=== PATIENT | male | born 1975 | race Caucasian/White ===

== ENCOUNTER 2021-09-22 15:41 | Emergency (ER) | payer OTHER, SELFPAY ==
--- NOTE | 2021-09-22 | ECG_ITS ---
Test Reason : CHEST PAIN Blood Pressure : / mmHG Vent. Rate : 092 BPM Atrial Rate : 092 BPM P-R Int : 136 ms QRS Dur : 088 ms QT Int : 340 ms P-R-T Axes : 003 -09 001 degrees QTc Int : 420 ms Normal sinus rhythm Minimal voltage criteria for LVH, may be normal variant ( R in aVL ) Septal infarct , age undetermined Abnormal ECG When compared with ECG of 01-MAR-2010 14:27, No significant change was found Referred By: Generic ED Physician Electronically Signed By:WADE PERALES MD
[2021-09-22 16:01] VITALS: BP 167/114; PULSE 97; RESP 18; TEMP 36.5; O2SAT 96; BMI 38.7
[2021-09-22] MEDS: Ondansetron ODT 4 MG TAB.RAPDIS TRANSLINGU (16:09)
[2021-09-22 16:38] LABS: Alanine Aminotransferase 47 U/L (0-40); Albumin Level 4.3 g/dL (3.5-5.0); Alkaline Phosphatase 65 U/L (39-117); Anion Gap 15 (12-20); Aspartate Amino Transferase 53 U/L (5-37); Bilirubin Total 1.3 mg/dL (0.0-1.0); Blood Urea Nitrogen 10 mg/dL (9-16); Calcium 9.2 mg/dL (8.4-10.2); Carbon Dioxide 25 mmol/L (22-29); Chloride 99 mmol/L (96-108); Creatinine Clr Calc Pharmacy 98.1; Estimated Glomerular Filt Rate > 60; Glucose Random 96 mg/dL (60-115); Sodium 135 mmol/L (135-145); Total Protein 7.6 g/dL (6.5-8.0)
[2021-09-22 16:53] LABS: Troponin-I High Sensitivity 10.7 ng/L (<3.5-35.0)
== END 2021-09-22 17:36 | disposition left against medical advice (07) ==
PROVIDERS: Emergency Provider Emergency Medicine; PCP Internal Medicine
DX: R07.9 Chest pain, unspecified (principal); R11.0 Nausea
CPT/HCPCS: 36415; 80053; 84484; 93005; 99283

== ENCOUNTER 2021-09-23 02:29 | Inpatient (IN) | payer OTHER, SELFPAY ==
[2021-09-23] VITALS (7 sets, daily range): BP systolic 141–159; BP diastolic 84–103; PULSE 88–96; RESP 16–18; TEMP 37.1–37.4; O2SAT 95–98; BMI 38.7
--- NOTE | ~2021-09-23 | US_ITS ---
EXAMINATION: US ABDOMEN LIMITED CLINICAL INFORMATION: Rule out gallstones. COMPARISON: None TECHNIQUE: Real-time imaging of the gallbladder FINDINGS: Gallbladder is normal in size. No gallstones are seen. The gallbladder wall is normal. There is no pericholecystic fluid. The common bile duct measures 0.3 cm. US/US abdomen limited IMPRESSION: Normal-appearing gallbladder. No gallstone seen.
--- NOTE | ~2021-09-23 | MR_ITS ---
EXAMINATION: MR ABDOMEN WITHOUT CONTRAST CLINICAL INFORMATION: Pancreatitis COMPARISON: Previous CT of the abdomen and pelvis was recent 09/23/2021 and abdominal ultrasound February 2018 TECHNIQUE: MR abdomen is performed without gadolinium contrast. MRCP sequences were also performed. Exam is limited due to artifact from respiratory motion. In particular, MRCP sequences are limited due to motion. FINDINGS: LUNG BASES: The visualized lung bases are unremarkable. LIVER, GALLBLADDER, AND BILIARY TREE: The liver is normal in size, smooth in contour, and normal in signal. No focal hepatic lesion or biliary ductal dilatation is present. The gallbladder is unremarkable with no evidence of gallbladder wall thickening, or obvious pericholecystic inflammatory changes. There is no intra or extrahepatic biliary duct dilatation. The common bile duct measures 0.5 cm. No common bile duct stone is seen. PANCREAS: The tail the pancreas appears prominent measuring 3.8 cm in AP dimension. The signal of the pancreas is normal. The main pancreatic duct does not appear dilated measuring 2 mm. There is question of minimal inflammatory change in the fat surrounding the tail the pancreas. SPLEEN: Unremarkable. ADRENAL GLANDS: Unremarkable. KIDNEYS AND URETERS: The kidneys are normal in size and shape. There is a small probable right renal cyst. No hydronephrosis. No perinephric stranding. GASTROINTESTINAL TRACT: No bowel obstruction. No ascites or fluid collection. ABDOMINAL WALL: There is a small umbilical hernia containing fat. LYMPH NODES: No lymphadenopathy. VASCULAR: Unremarkable. OSSEOUS STRUCTURES: Marrow signal normal. MR/MR MRCP IMPRESSION: Limited due to motion artifact. Normal appearing gallbladder. Normal appearing intra and extrahepatic bile ducts. No common bile duct stone seen. Prominent tail of the pancreas and question mild stranding of the adjacent peripancreatic fat. Small right renal cyst.
--- NOTE | ~2021-09-23 | CT_ITS ---
EXAMINATION: CT ABDOMEN AND PELVIS WITH CONTRAST CLINICAL INFORMATION: Epigastric pain COMPARISON: 10/10/2007 TECHNIQUE: Multidetector volumetric images were obtained from the superior aspect of the liver through the pubic symphysis following administration 85 mL of Omnipaque 350 intravenous contrast. Sagittal and coronal reformatted images were obtained on the technologist's workstation. Oral contrast: No This CT examination was performed using dose optimization techniques as appropriate, variously including the following: *Automated exposure control *Adjustment of mA and/or kV according to patient size (this includes techniques or standardized protocols for targeted exams where dose is matched to indication/reason for exam; i.e. extremities or head) *Use of iterative reconstruction technique DLP: 696 mGy-cm FINDINGS: LUNG BASES: The visualized lung bases are unremarkable. LIVER, GALLBLADDER, AND BILIARY TREE: The liver is normal in size, shape, and attenuation. No focal hepatic lesion or biliary ductal dilatation is present. The gallbladder is unremarkable with no evidence of radiopaque gallstones, gallbladder wall thickening, or obvious pericholecystic inflammatory changes. PANCREAS: There is stranding adjacent to the distal pancreas which may reflect pancreatitis. SPLEEN: Unremarkable. ADRENAL GLANDS: Unremarkable. KIDNEYS AND URETERS: Bilateral nephrograms are symmetric. No hydronephrosis or obstructing calculus identified. An approximately 1.5 cm hypodense lesion in the mid right kidney has the density of a cyst; no follow-up recommended. BLADDER: Unremarkable. GASTROINTESTINAL TRACT: No evidence of bowel obstruction or significant wall thickening. Appendix appears nondilated. No free fluid or free air is seen. ABDOMINAL WALL: No significant hernia is appreciated. LYMPH NODES: Scattered mesenteric and retroperitoneal subcentimeter lymph nodes are present, without significant enlargement by size criteria. VASCULAR: Unremarkable. PELVIC VISCERA: Unremarkable. OSSEOUS STRUCTURES: Unremarkable. CT/CT abdomen pelvis w con IMPRESSION: Stranding adjacent to the distal pancreas, raising suspicion for pancreatitis in the proper clinical setting. Fleischner guidelines were followed.
--- NOTE | 2021-09-23 02:43 | ECG_ITS ---
Test Reason : ABD PAIN Blood Pressure : / mmHG Vent. Rate : 088 BPM Atrial Rate : 088 BPM P-R Int : 142 ms QRS Dur : 088 ms QT Int : 344 ms P-R-T Axes : 056 -10 -13 degrees QTc Int : 416 ms Normal sinus rhythm Nonspecific ST abnormality Abnormal ECG When compared with ECG of 22-SEP-2021 16:04, Criteria for Septal infarct are no longer Present Referred By: Parris Avila Electronically Signed By:WADE PERALES MD
--- NOTE | 2021-09-23 02:57 | ED.ABDPAIN ---
HPI - Abdominal Pain General Chief Complaint: Abdominal Pain Stated Complaint: abdominal pain Time Seen by Provider: 09/23/21 02:36 Source: patient Mode of arrival: ambulatory Limitations: no limitations History of Present Illness HPI narrative: patient comes to the emergency room complaining of epigastric and right upper quadrant pain. Patient states it has been present for almost 12 hours. Patient took ibuprofen at home around 17:00. Patient complaining of nausea and vomiting, no diarrhea, no fever chills. Patient denies binge drinking, no marijuana use. Related Data Allergies Allergy/AdvReac Type Severity Reaction Status Date / Time No Known Allergies Allergy Verified 09/22/21 16:01 Review of Systems Review of Systems Constitutional : No Weight loss, No Fever, No Chills, No Night Sweats, No Fatigue, No Malaise ENT/Mouth : No Hearing loss, No Ear Pain, No Nasal Congestion, No Sinus Pain, No Hoarseness, No sore throat, No Rhinorrhea, No Swallowing Difficulty Eyes: No Eye Pain, No Swelling, No Redness, No Foreign Body, No Discharge, No Vision Changes Cardiovascular : No Chest Pain, No SOB, No Dyspnea on Exertion, No Orthopnea, No Edema, No Palpitations Respiratory : No Cough, No Sputum, No Wheezing, No Smoke Exposure, No Dyspnea Gastrointestinal : Complaining of nausea and vomiting, No Diarrhea, No Constipation, No abdominal Pain, No Hematochezia, No Melena Genitourinary : no irregular bleeding, No Dysuria, No Urinary Frequency, No Hematuria, No Urinary Incontinence, No Urgency, No Flank Pain, No Urinary Flow Changes, No Hesitancy Musculoskeletal : No joint pain, No Myalgias, No Joint Swelling Skin : No Skin Lesions, No rash Neuro : No Weakness, No Numbness, No Paresthesias, No Loss of Consciousness, No Dizziness, No Headache Psych : No Anxiety/Panic, No Depression, No SI/HI/AH/VH, No Social Issues, Heme/Lymph: No Bruising, No Bleeding,No Lymphadenopathy Endocrine : No Polyuria, No Polydipsia, No Temperature Intolerance [facility] Past Medical History Medical History (Updated 09/23/21 @ 05:03 by Parris Avila MD) HTN (hypertension) Social History Social History Advance Directives: No Advance Directives Information Provided: Yes Physical Exam ED Vital Signs: Vital Signs - 24 hr 09/23/21 02:40 09/23/21 03:27 09/23/21 04:32 Temperature 98.9 F 98.8 F Pulse Rate 88 88 Respiratory Rate 16 16 16 Blood Pressure 146/99 H 153/103 H Pulse Oximetry 95 97 BMI result Body Mass Index 38.7 Course Course Course Narrative: I discussed the labs imaging with the patient, patient has pancreatitis. After discussing the above mentioned with the patient, patient admits that he drinks a lot of alcohol. MDM - Abdominal Pain Lab Data Result diagrams: 09/23/21 03:06 09/23/21 03:06 Labs: Lab Results 09/23/21 09/23/21 09/23/21 Range/Units 03:06 03:06 04:27 WBC 13.7 H (4.8-10.8) X10*3/uL RBC 4.99 (4.60-5.80) X10*6/uL Hgb 16.3 (14.0-18.0) g/dl Hct 50.5 (42.0-52.0) % MCV 101.2 H (80.0-98.0) fL MCH 32.7 (27.0-33.0) pg MCHC 32.3 (31.0-36.0) g/dl RDW 13.8 (11.0-16.0) % Plt Count 295 (160-400) X10*3/uL MPV 9.8 (9.4-12.4) fL Immature Gran % (Auto) 0.4 (0.0-0.4) % Neut % (Auto) 86.5 H (45-73) % Lymph % (Auto) 7.0 L (20-40) % [place] % (Auto) 5.4 (2-11) % Eos % (Auto) 0.5 (0-4) % Baso % (Auto) 0.2 (0-2) % Lymph # (Auto) 1.0 L (1.2-4.9) X10*3/uL [place] # (Auto) 0.7 (0.1-1.2) X10*3/uL Eos # (Auto) 0.1 (0.0-0.4) X10*3/uL Baso # (Auto) 0.0 (0.0-0.2) X10*3/uL Abs Immat Gran (auto) 0.06 H (0.00-0.03) X10*3/uL Absolute Neuts (auto) 11.8 H (2.0-8.3) x10*3/uL Absolute Nucleated RBC 0.000 (0.0-0.012) X10*3/uL Nucleated RBC % (auto) 0.0 (0.0-0.2) /100WBC Sodium 132 L (135-145) mmol/L Potassium 4.4 (3.3-5.1) mmol/L Chloride 95 L (96-108) mmol/L Carbon Dioxide 27 (22-29) mmol/L Anion Gap 14 (12-20) BUN 9 (9-16) mg/dL Creatinine 1.28 (0.5-1.4) mg/dL Estim Creat Clear Calc 84.3 Estimated GFR > 60 Random Glucose 107 (60-115) mg/dL Calcium 9.0 (8.4-10.2) mg/dL Magnesium 2.0 (1.6-2.6) mg/dL Total Bilirubin 1.5 H (0.0-1.0) mg/dL Direct Bilirubin 0.5 (0.0-0.5) mg/dL AST 44 H (5-37) U/L ALT 41 H (0-40) U/L Alkaline Phosphatase 58 (39-117) U/L Total Protein 7.2 (6.5-8.0) g/dL Albumin 4.0 (3.5-5.0) g/dL Triglycerides 266 mg/dL Lipase 351 H (8-78) U/L Urine Color YELLOW Urine Appearance CLEAR Urine pH 7.5 (5.0-8.0) Ur Specific [place] 1.010 (1.005-1.025) Urine Protein NEG (NEG-TRACE) MG/DL Urine Glucose (UA) NEG (NEG) MG/DL Urine Ketones 5 (NEG) MG/DL Urine Blood NEG (NEG) Urine Nitrite NEG (NEG) Ur Leukocyte Esterase NEG (NEG) Urine Opiates Screen (Not Detect) Urine Fentanyl Screen (Not Detect) Ur Barbiturates Screen (Not Detect) Ur Phencyclidine Scrn (Not Detect) Ur Amphetamines Screen (Not Detect) U Benzodiazepines Scrn (Not Detect) Urine Cocaine Screen (Not Detect) U Marijuana (THC) Screen (Not Detect) 09/23/21 Range/Units 04:27 WBC (4.8-10.8) X10*3/uL RBC (4.60-5.80) X10*6/uL Hgb (14.0-18.0) g/dl Hct (42.0-52.0) % MCV (80.0-98.0) fL MCH (27.0-33.0) pg MCHC (31.0-36.0) g/dl RDW (11.0-16.0) % Plt Count (160-400) X10*3/uL MPV (9.4-12.4) fL Immature Gran % (Auto) (0.0-0.4) % Neut % (Auto) (45-73) % Lymph % (Auto) (20-40) % [place] % (Auto) (2-11) % Eos % (Auto) (0-4) % Baso % (Auto) (0-2) % Lymph # (Auto) (1.2-4.9) X10*3/uL [place] # (Auto) (0.1-1.2) X10*3/uL Eos # (Auto) (0.0-0.4) X10*3/uL Baso # (Auto) (0.0-0.2) X10*3/uL Abs Immat Gran (auto) (0.00-0.03) X10*3/uL Absolute Neuts (auto) (2.0-8.3) x10*3/uL Absolute Nucleated RBC (0.0-0.012) X10*3/uL Nucleated RBC % (auto) (0.0-0.2) /100WBC Sodium (135-145) mmol/L Potassium (3.3-5.1) mmol/L Chloride (96-108) mmol/L Carbon Dioxide (22-29) mmol/L Anion Gap (12-20) BUN (9-16) mg/dL Creatinine (0.5-1.4) mg/dL Estim Creat Clear Calc Estimated GFR Random Glucose (60-115) mg/dL Calcium (8.4-10.2) mg/dL Magnesium (1.6-2.6) mg/dL Total Bilirubin (0.0-1.0) mg/dL Direct Bilirubin (0.0-0.5) mg/dL AST (5-37) U/L ALT (0-40) U/L Alkaline Phosphatase (39-117) U/L Total Protein (6.5-8.0) g/dL Albumin (3.5-5.0) g/dL Triglycerides mg/dL Lipase (8-78) U/L Urine Color Urine Appearance Urine pH (5.0-8.0) Ur Specific [place] (1.005-1.025) Urine Protein (NEG-TRACE) MG/DL Urine Glucose (UA) (NEG) MG/DL Urine Ketones (NEG) MG/DL Urine Blood (NEG) Urine Nitrite (NEG) Ur Leukocyte Esterase (NEG) Urine Opiates Screen POSITIVE H (Not Detect) Urine Fentanyl Screen Not Detected (Not Detect) Ur Barbiturates Screen Not Detected (Not Detect) Ur Phencyclidine Scrn Not Detected (Not Detect) Ur Amphetamines Screen Not Detected (Not Detect) U Benzodiazepines Scrn Not Detected (Not Detect) Urine Cocaine Screen POSITIVE H (Not Detect) U Marijuana (THC) Screen Not Detected (Not Detect) Imaging Data CT scan - abdomen: Radiologist's impression: FINDINGS: LUNG BASES: The visualized lung bases are unremarkable.? LIVER, GALLBLADDER, AND BILIARY TREE: The liver is normal in size, shape, and attenuation. No focal hepatic lesion or biliary ductal dilatation is present. The gallbladder is unremarkable with no evidence of radiopaque gallstones, gallbladder wall thickening, or obvious pericholecystic inflammatory changes.? PANCREAS: There is stranding adjacent to the distal pancreas which may reflect pancreatitis.? SPLEEN: Unremarkable.? ADRENAL GLANDS: Unremarkable.? KIDNEYS AND URETERS: Bilateral nephrograms are symmetric. No hydronephrosis or obstructing calculus identified. An approximately 1.5 cm hypodense lesion in the mid right kidney has the density of a cyst; no follow-up recommended. BLADDER: Unremarkable.? GASTROINTESTINAL TRACT: No evidence of bowel obstruction or significant wall thickening. Appendix appears nondilated. No free fluid or free air is seen. ABDOMINAL WALL: No significant hernia is appreciated.? LYMPH NODES: Scattered mesenteric and retroperitoneal subcentimeter lymph nodes are present, without significant enlargement by size criteria. VASCULAR: Unremarkable. PELVIC VISCERA: Unremarkable.? OSSEOUS STRUCTURES: Unremarkable.? CT/CT abdomen pelvis w con IMPRESSION: Stranding adjacent to the distal pancreas, raising suspicion for pancreatitis in the proper clinical setting.? ? Fleischner guidelines were followed. Discharge Plan Discharge Clinical Impression: Pancreatitis Patient Disposition: Admitted As Inpatient
[2021-09-23] MEDS: 0.9 % Sodium Chloride 1,000 ML 999 ML IVCONT (03:07)
[2021-09-23] MEDS: ondansetron HCL 4 MG/2 ML VIAL IVPUSH ×3 (03:07→18:32)
[2021-09-23 03:14] LABS: MANUAL DIFF FLAG NO
[2021-09-23 03:16] LABS: Basophils Percent Auto 0.2 % (0-2); Eosinophils Absolute Auto 0.1 X10*3/uL (0.0-0.4); Eosinophils Percent Auto 0.5 % (0-4); Hematocrit 50.5 % (42.0-52.0); Hemoglobin 16.3 g/dl (14.0-18.0); Imm Gran Abs Auto 0.06 X10*3/uL (0.00-0.03); Imm Gran Pct Auto 0.4 % (0.0-0.4); Mean Corpuscular HGB Conc 32.3 g/dl (31.0-36.0); Mean Corpuscular Hemoglobin 32.7 pg (27.0-33.0); Mean Corpuscular Volume 101.2 fL (80.0-98.0); Mean Platelet Volume 9.8 fL (9.4-12.4); Monocytes Absolute Auto 0.7 X10*3/uL (0.1-1.2); Monocytes Percent Auto 5.4 % (2-11); Neutrophils Absolute Auto 11.8 x10*3/uL (2.0-8.3); Neutrophils Percent Auto 86.5 % (45-73); Platelet Count 295 X10*3/uL (160-400); Red Blood Count 4.99 X10*6/uL (4.60-5.80); Red Cell Distribution Width 13.8 % (11.0-16.0); White Blood Count 13.7 X10*3/uL (4.8-10.8)
[2021-09-23] MEDS: Morphine Sulfate 4 MG/ML CARTRIDGE IVPUSH ×3 (03:27→12:56)
[2021-09-23 03:35] LABS: Alanine Aminotransferase 41 U/L (0-40); Alkaline Phosphatase 58 U/L (39-117); Anion Gap 14 (12-20); Aspartate Amino Transferase 44 U/L (5-37); Bilirubin Direct 0.5 mg/dL (0.0-0.5); Bilirubin Total 1.5 mg/dL (0.0-1.0); Blood Urea Nitrogen 9 mg/dL (9-16); Carbon Dioxide 27 mmol/L (22-29); Chloride 95 mmol/L (96-108); Creatinine Clr Calc Pharmacy 84.3; Estimated Glomerular Filt Rate > 60; Glucose Random 107 mg/dL (60-115); Lipase 351 U/L (8-78); Potassium 4.4 mmol/L (3.3-5.1); Sodium 132 mmol/L (135-145); Total Protein 7.2 g/dL (6.5-8.0)
[2021-09-23 04:12] LABS: Triglycerides 266 mg/dL
[2021-09-23] MEDS: iohexoL 350 MG/ML 100 ML INFUS..BTL 85 ML IV (04:23)
[2021-09-23 04:32] LABS: Appearance Urine CLEAR; Color Urine YELLOW; Glucose Urine UA NEG (NEG); Leukocyte Esterase Urine NEG (NEG); Nitrite Urine NEG (NEG); PH 7.5 (5.0-8.0); Urine Blood NEG (NEG); Urine Ketones 5 MG/DL (NEG); Urine Protein NEG (NEG-TRACE)
[2021-09-23 04:51] LABS: Amphetamine Screen Urine Not Detected (Not Detect); Barbiturates, Urine Not Detected (Not Detect); Benzodiazepines Screen Urine Not Detected (Not Detect); Cannabinoid Screen Urine Not Detected (Not Detect); Cocaine Screen Urine POSITIVE (Not Detect); Fentanyl, urine Not Detected (Not Detect); Opiate Screen Urine POSITIVE (Not Detect); Phencyclidine Screen Urine Not Detected (Not Detect)
[2021-09-23] MEDS: Lactated Ringers 1,000 ML 200 ML IVCONT (07:44)
[2021-09-23] MEDS: 0.9 % Sodium Chloride Flush 3 ML SYRINGE IVFLUSH ×2 (07:45→15:10)
[2021-09-23] MEDS: amLODIPine Besylate 10 MG TABLET PO (07:45)
[2021-09-23] MEDS: Omeprazole 20 MG CAPSULE.DR PO (07:45)
--- NOTE | 2021-09-23 07:50 | PM.IMHP ---
History of Present Illness Date of Service: 09/23/21 Chief Complaint: abd pain this is a 46 more old male with past medical history of hypertension and alcohol abuse presents to the hospital with complaints of epigastric abdominal pain that started on day of presentation. Patient reports nausea, 1 episode of vomiting,low appetite. Patient denies any diarrhea constipation, no urinary symptoms, no lower extremity edema. Patient reports that he drinks 3 to 4 times a week, denies any history of alcohol withdrawal symptoms. On arrival to the ED patient hemodynamically stable labs are significant for WBC count of 13.7, sodium of 132, total bili of 1.5, AST of 44, ALT of 41, lipase of 351, UA negative, UDS positive for opioids and cocaine. triglycerides 266 CT abdomen pelvic shows stranding adjacent to the distal pancreatic raising suspicious for pancreatitis Review of Systems Review of Systems: Yes all other systems are reviewed and are negative [facility] Medical History HTN (hypertension) Family History (Updated 09/23/21 @ 07:55 by Adelaida Mcallister MD) Other No family history of coronary artery disease Surgical History (Updated 09/23/21 @ 07:55 by Adelaida Mcallister MD) No pertinent past surgical history Social History Alcohol intake: current Patient Tobacco Use Status: Never used Tobacco Use of substances other than those prescribed or required for medical reasons: Yes Substance Use Type: Crack/Cocaine Substance Use Frequency: Occasionally Advance Directives: No Advance Directives Information Provided: Yes Meds Allergies Allergy/AdvReac Type Severity Reaction Status Date / Time No Known Allergies Allergy Verified 09/22/21 16:01 Active Medications: Current Medications Acetaminophen (Acetaminophen 325 Mg Tablet) 650 mg PO Q6H PRN PRN Reason: Pain, Mild (Pain Scale 1-3) Albuterol Sulfate (Albuterol Sulfate 90 Mcg 8 Gm Inhaler) 2 puff INHALE Q4H PRN PRN Reason: Dyspnea Amlodipine Besylate (Amlodipine Besylate 10 Mg Tablet) 10 mg PO DAILY [facility]; Protocol Last Admin: 09/23/21 07:45 Dose: 10 mg Documented by: Enoxaparin Sodium (Enoxaparin Sodium 40 Mg/0.4 Ml Syringe) 40 mg SUBCUT Q24H [facility] Fluticasone Propionate (Fluticasone Propionate 100 Mcg Blst.W.Dev) 1 puff INHALE RBID [facility] Lactated Ringer's (Lr) 1,000 mls @ 200 mls/hr IVCONT .Q5H [facility] Last Admin: 09/23/21 07:44 Dose: 200 mls/hr Documented by: Morphine Sulfate (Morphine Sulfate 4 Mg/Ml Cartridge) 4 mg IVPUSH Q4H PRN; Protocol PRN Reason: Pain, Severe (Pain Scale 7-10) Last Admin: 09/23/21 07:45 Dose: 4 mg Documented by: Omeprazole (Omeprazole 20 Mg Capsule.Dr) 20 mg PO DAILY@0630 [facility] Last Admin: 09/23/21 07:45 Dose: 20 mg Documented by: Ondansetron HCl (Ondansetron Hcl 4 Mg/2 Ml Vial) 4 mg IVPUSH Q8H PRN PRN Reason: Nausea and Vomiting Sodium Chloride (0.9 % Sodium Chloride Flush 3 Ml Syringe) 3 ml IVFLUSH QSHIFT [facility] Last Admin: 09/23/21 07:45 Dose: 3 ml Documented by: Home Medications Medication Instructions Recorded Confirmed Last Taken Type albuterol sulfate 90 mcg/actuation 2 puff PO Q4H PRN 09/23/21 09/23/21 Unknown History aerosol inhaler amlodipine 10 mg tablet 1 tab PO DAILY 09/23/21 09/23/21 09/18/21 History fluticasone propionate 110 1 puff PO BID 09/23/21 09/23/21 Unknown History mcg/actuation HFA aerosol inhaler (Flovent HFA) omeprazole 20 mg capsule,delayed 1 cap PO DAILY 09/23/21 09/23/21 Unknown History release Physical Exam Vital Signs and Narrative: Vital Signs: Last Vital Signs Temp 98.8 F 09/23/21 04:32 Pulse 93 09/23/21 07:46 Resp 18 09/23/21 07:46 BP 157/101 H 09/23/21 07:46 Pulse Ox 95 09/23/21 07:46 BMI result Body Mass Index 38.7 Results Labs CBC and Chem 7: 09/23/21 03:06 09/23/21 03:06 Labs: Laboratory Results - last 24 hr 09/23/21 09/23/21 09/23/21 03:06 03:06 04:27 MCV 101.2 H MCH 32.7 MCHC 32.3 RDW 13.8 Plt Count 295 MPV 9.8 Immature Gran % (Auto) 0.4 Neut % (Auto) 86.5 H Lymph % (Auto) 7.0 L [place] % (Auto) 5.4 Eos % (Auto) 0.5 Baso % (Auto) 0.2 Lymph # (Auto) 1.0 L [place] # (Auto) 0.7 Eos # (Auto) 0.1 Baso # (Auto) 0.0 Abs Immat Gran (auto) 0.06 H Absolute Neuts (auto) 11.8 H Absolute Nucleated RBC 0.000 Nucleated RBC % (auto) 0.0 Anion Gap 14 Estim Creat Clear Calc 84.3 Estimated GFR > 60 Random Glucose 107 Calcium 9.0 Magnesium 2.0 Total Bilirubin 1.5 H Direct Bilirubin 0.5 AST 44 H ALT 41 H Alkaline Phosphatase 58 Total Protein 7.2 Albumin 4.0 Triglycerides 266 Lipase 351 H Urine Color YELLOW Urine Appearance CLEAR Urine pH 7.5 Ur Specific [place] 1.010 Urine Protein NEG Urine Glucose (UA) NEG Urine Ketones 5 Urine Blood NEG Urine Nitrite NEG Ur Leukocyte Esterase NEG Urine Opiates Screen Urine Fentanyl Screen Ur Barbiturates Screen Ur Phencyclidine Scrn Ur Amphetamines Screen U Benzodiazepines Scrn Urine Cocaine Screen U Marijuana (THC) Screen 09/23/21 04:27 MCV MCH MCHC RDW Plt Count MPV Immature Gran % (Auto) Neut % (Auto) Lymph % (Auto) [place] % (Auto) Eos % (Auto) Baso % (Auto) Lymph # (Auto) [place] # (Auto) Eos # (Auto) Baso # (Auto) Abs Immat Gran (auto) Absolute Neuts (auto) Absolute Nucleated RBC Nucleated RBC % (auto) Anion Gap Estim Creat Clear Calc Estimated GFR Random Glucose Calcium Magnesium Total Bilirubin Direct Bilirubin AST ALT Alkaline Phosphatase Total Protein Albumin Triglycerides Lipase Urine Color Urine Appearance Urine pH Ur Specific [place] Urine Protein Urine Glucose (UA) Urine Ketones Urine Blood Urine Nitrite Ur Leukocyte Esterase Urine Opiates Screen POSITIVE H Urine Fentanyl Screen Not Detected Ur Barbiturates Screen Not Detected Ur Phencyclidine Scrn Not Detected Ur Amphetamines Screen Not Detected U Benzodiazepines Scrn Not Detected Urine Cocaine Screen POSITIVE H U Marijuana (THC) Screen Not Detected Imaging Radiologist's Impressions: Impressions Abdomen/Pelvis CT 09/23/21 04:20 IMPRESSION: Stranding adjacent to the distal pancreas, raising suspicion for pancreatitis in the proper clinical setting. Fleischner guidelines were followed. Assessment and Plan (1) Pancreatitis: Status: Acute (2) Alcohol abuse: Status: Acute Plan 46-year-old male with past medical history of alcohol abuse presents to the hospital with complaints of epigastric pain found to have acute pancreatitis # acute pancreatitis - likely secondary to alcohol abuse, triglycerides normal, no evidence of cholecystitis/ cholelithiasis - will treat with IV fluids, NPO, pain control # alcohol abuse - not in withdrawal - will place on CIWA #hypertension - stable - continue home medications DVT prophylaxis: Lovenox Quality Stroke Does the patient have a stroke diagnosis?: No VTE Prior VTE?: No VTE Risk Level:: Medical - moderate - high VTE Device Contraindication: Treatment Not Indicated VTE Drug Contraindication: N/A - Med Ordered
[2021-09-23] MEDS: 0.9 % Sodium Chloride 1,000 ML 200 ML IVCONT (08:24)
--- NOTE | 2021-09-23 08:52 | PHA.MEDREC ---
Pharmacy Consult ? Medication Reconciliation Nursing has completed the medication reconciliation and pharmacy has reviewed.
[2021-09-23] MEDS: Enoxaparin Sodium 40 MG/0.4 ML SYRINGE SUBCUT (09:09)
[2021-09-23] MEDS: Fluticasone Propionate 100 MCG BLST.W.DEV 1 PUFF INHALE ×2 (09:09→21:27)
[2021-09-23 11:59] LABS: COVID-19 Test Negative (Negative)
--- NOTE | 2021-09-23 13:43 | PC.NURSE ---
Pt alert/oriented. Ambulatory to bathroom as needed. PRN morphine for pain management, states takes edge off No acute vomiting since start of shift and intermittent nausea. Awaits bed assgn. NS at 200ml/hr
--- NOTE | 2021-09-23 15:14 | PM.EVENT ---
Event Note Date of Service: 09/23/21 Event Note: Patient re-examined. Exam essentially unchanged from admission. Pain control fair; will switch to Dilaudid. Abdominal exam still yield midepigastric tenderness; once pain improves will restart clears and advance as tolerated. This will likely happen in a.m. Continue of plan of care as ordered
[2021-09-23] MEDS: HYDROmorphone HCl 1 MG/ML SYRINGE IVPUSH ×2 (18:31→22:54)
[2021-09-24] VITALS (9 sets, daily range): BP systolic 112–140; BP diastolic 60–88; PULSE 75–92; RESP 16–20; TEMP 36.2–37.2; O2SAT 94–100
[2021-09-24] MEDS: 0.9 % Sodium Chloride Flush 3 ML SYRINGE IVFLUSH ×3 (00:38→16:10)
[2021-09-24] MEDS: Omeprazole 20 MG CAPSULE.DR PO (06:13)
[2021-09-24 07:13] LABS: MANUAL DIFF FLAG NO
[2021-09-24 07:15] LABS: Basophils Percent Auto 0.2 % (0-2); Eosinophils Absolute Auto 0.1 X10*3/uL (0.0-0.4); Eosinophils Percent Auto 1.1 % (0-4); Hematocrit 47.2 % (42.0-52.0); Hemoglobin 15.4 g/dl (14.0-18.0); Imm Gran Abs Auto 0.05 X10*3/uL (0.00-0.03); Imm Gran Pct Auto 0.4 % (0.0-0.4); Lymphocytes Absolute Auto 1.1 X10*3/uL (1.2-4.9); Lymphocytes Percent Auto 8.6 % (20-40); Mean Corpuscular HGB Conc 32.6 g/dl (31.0-36.0); Mean Corpuscular Hemoglobin 33.2 pg (27.0-33.0); Mean Corpuscular Volume 101.7 fL (80.0-98.0); Mean Platelet Volume 9.9 fL (9.4-12.4); Monocytes Absolute Auto 0.8 X10*3/uL (0.1-1.2); Monocytes Percent Auto 6.5 % (2-11); Neutrophils Absolute Auto 10.3 x10*3/uL (2.0-8.3); Neutrophils Percent Auto 83.2 % (45-73); Platelet Count 274 X10*3/uL (160-400); Red Blood Count 4.64 X10*6/uL (4.60-5.80); White Blood Count 12.4 X10*3/uL (4.8-10.8)
[2021-09-24 07:28] LABS: Anion Gap 14 (12-20); Blood Urea Nitrogen 7 mg/dL (9-16); Calcium 8.6 mg/dL (8.4-10.2); Carbon Dioxide 27 mmol/L (22-29); Chloride 98 mmol/L (96-108); Creatinine Clr Calc Pharmacy 76.5; Estimated Glomerular Filt Rate 54; Glucose Random 82 mg/dL (60-115); Potassium 4.8 mmol/L (3.3-5.1); Sodium 134 mmol/L (135-145)
[2021-09-24] MEDS: HYDROmorphone HCl 1 MG/ML SYRINGE IVPUSH ×5 (10:04→23:07)
[2021-09-24] MEDS: Enoxaparin Sodium 40 MG/0.4 ML SYRINGE SUBCUT (10:04)
[2021-09-24] MEDS: Acetaminophen 325 MG TABLET 650 MG PO (10:04)
[2021-09-24] MEDS: amLODIPine Besylate 10 MG TABLET PO (10:04)
[2021-09-24] MEDS: ondansetron HCL 4 MG/2 ML VIAL IVPUSH ×3 (10:07→23:07)
--- NOTE | 2021-09-24 10:39 | MHC.CM.PN ---
EMR REVIEWED, PT ADMITTED W/ACUTE PANCREATITIS, CM MET W/PT WHO IS A&OX4, PT REPORTS HE WORKS, LIVES W/S.O., IS INDEP W/ALL CARE, NO DME AND NO HOME SERVICES, CM DISCUSSED ETOH TX W/PT AND PT CURRENTLY DECLINES NEED AND STATES, I JUST NEED TO PUT THE BRAKES ON , PT AWARE IF HE CHANGES HIS MIND HE CAN ASK FOR CM/RECOVERY TEAM, PCP AT [facility] IN [place] AND IS DOES NOT KNOW NAME, PT PROVIDED W/EDUCATIONAL INFO ON HCP'S AND CURRENTLY DECLINES, PT IS NOT VACCINATED AGAINST COVID, PT REPORTS HE DID HAVE COVID IN 2020 AND WAS MISERABLE, PT ENCOURAGED TO GET VACCINATED. D/C PLAN: HOME NO SERVICES W/S.O. FOR TRANSPORT
--- NOTE | 2021-09-24 11:17 | P.PNIM_ITS ---
Subjective Subjective Date of Service: 09/24/21 Interval History: Continues with diffuse mid epigastric tenderness along with mild nausea. Has attempted sips of water which exacerbated his pain Review of Systems Denies chest pain Denies shortness of breath States nausea no vomiting or diarrhea Persistent upper abdominal pain Physical Exam Vital Signs: Vital Signs: Last Vital Signs Temp 98.9 F 09/24/21 10:12 Pulse 88 09/24/21 10:12 Resp 18 09/24/21 10:12 BP 129/88 09/24/21 10:12 Pulse Ox 97 09/24/21 10:12 BMI result Body Mass Index 38.7 Const: Other: Uncomfortable lying quietly in bed Resp: Other: Clear to auscultation bilaterally no rales rhonchi wheezes Cardio: Other: No S4; positive S1-S2; no S3 murmurs rubs or gallops GI: Other: Tender across upper abdomen more localized in mid epigastrium. Mild voluntary guarding. Bowel sounds quiet. No acute peritoneal signs Neuro: Other: Cranial nerves 2-12 grossly intact as tested. Motor is 5/5 all extremities. Sensation intact. Cognition appropriate Extrem: Other: No edema bilaterally Objective Data Active Medications Acetaminophen (Acetaminophen 325 Mg Tablet) 650 mg PO Q6H PRN PRN Reason: Pain, Mild (Pain Scale 1-3) Last Admin: 09/24/21 10:04 Dose: 650 mg Documented by: JOHANA Albuterol Sulfate (Albuterol Sulfate 90 Mcg 8 Gm Inhaler) 2 puff INHALE Q4H PRN PRN Reason: Dyspnea Amlodipine Besylate (Amlodipine Besylate 10 Mg Tablet) 10 mg PO DAILY [facility]; Protocol Last Admin: 09/24/21 10:04 Dose: 10 mg Documented by: JOHANA Enoxaparin Sodium (Enoxaparin Sodium 40 Mg/0.4 Ml Syringe) 40 mg SUBCUT Q24H [facility] Last Admin: 09/24/21 10:04 Dose: 40 mg Documented by: JOHANA Fluticasone Propionate (Fluticasone Propionate 100 Mcg Blst.W.Dev) 1 puff INHALE RBID [facility] Last Admin: 09/24/21 07:52 Dose: Not Given Documented by: MARISELA Non-Admin Reason: Patient Asleep Hydromorphone HCl (Hydromorphone Hcl 1 Mg/Ml Syringe) 1 mg IVPUSH Q2H PRN; Protocol PRN Reason: Pain, Severe (Pain Scale 7-10) Last Admin: 09/24/21 10:04 Dose: 1 mg Documented by: JOHANA Omeprazole (Omeprazole 20 Mg Capsule.Dr) 20 mg PO DAILY@0630 [facility] Last Admin: 09/24/21 06:13 Dose: 20 mg Documented by: ALFRED Ondansetron HCl (Ondansetron Hcl 4 Mg/2 Ml Vial) 4 mg IVPUSH Q8H PRN PRN Reason: Nausea and Vomiting Last Admin: 09/24/21 10:07 Dose: 4 mg Documented by: JOHANA Sodium Chloride (0.9 % Sodium Chloride Flush 3 Ml Syringe) 3 ml IVFLUSH QSHIFT [facility] Last Admin: 09/24/21 10:05 Dose: 3 ml Documented by: JOHANA Labs CBC & Chem 7: 09/24/21 06:54 09/24/21 06:54 Labs: Laboratory Results - last 24 hr 09/23/21 09/24/21 09/24/21 11:24 06:54 06:54 MCV 101.7 H MCH 33.2 H MCHC 32.6 RDW 14.0 Plt Count 274 MPV 9.9 Immature Gran % (Auto) 0.4 Neut % (Auto) 83.2 H Lymph % (Auto) 8.6 L [place] % (Auto) 6.5 Eos % (Auto) 1.1 Baso % (Auto) 0.2 Lymph # (Auto) 1.1 L [place] # (Auto) 0.8 Eos # (Auto) 0.1 Baso # (Auto) 0.0 Abs Immat Gran (auto) 0.05 H Absolute Neuts (auto) 10.3 H Absolute Nucleated RBC 0.000 Nucleated RBC % (auto) 0.0 Anion Gap 14 Estim Creat Clear Calc 76.5 Estimated GFR 54 Random Glucose 82 Calcium 8.6 COVID-19 (RODRIGUEZ) Negative COVID-19 Clin Com See Note Assessment and Plan (1) Pancreatitis: Status: Acute (2) Alcohol abuse: Status: Acute Plan 46-year-old male with past medical history of alcohol abuse presents to the hospital with complaints of epigastric pain found to have acute pancreatitis; remains NPO however minimal improvement overnight 1.Acute pancreatitis - no appreciable improvement - will treat with IV fluids, NPO, pain control 2.Alcohol abuse - not in withdrawal - CIWA neg 3.Hypertension - stable - continue home medications DVT prophylaxis: Lovenox Requires continued hospitalization secondary the need for IV fluids and pain meds; unable to tolerate p.o. Quality Stroke Does the patient have a stroke diagnosis?: No VTE Prior VTE?: No VTE Risk Level:: Medical - moderate - high VTE Device Contraindication: Treatment Not Indicated VTE Drug Contraindication: N/A - Med Ordered
--- NOTE | 2021-09-24 11:24 | PC.NURSE ---
pt a&ox3, vss, reporting increase in pain and nausea, prn medication administered, medicated per provider order, pt showered this morning.
--- NOTE | 2021-09-24 13:15 | PC.NURSE ---
medicated PRN for pain/nausea.
--- NOTE | 2021-09-24 13:18 | PC.NURSE ---
RN-RN report sent via [employer] per S3 office secretary.
[2021-09-24] MEDS: Dextrose 5 % and 0.9 % NaCl 1,000 ML 125 ML IVCONT (16:59)
[2021-09-25] MEDS: Dextrose 5 % and 0.9 % NaCl 1,000 ML 125 ML IVCONT (01:40)
[2021-09-25 04:00] VITALS: BP 129/65; PULSE 68; RESP 16; TEMP 36.1; O2SAT 97
[2021-09-25 04:44] LABS: MANUAL DIFF FLAG NO
[2021-09-25] MEDS: Omeprazole 20 MG CAPSULE.DR PO (04:49)
[2021-09-25] MEDS: HYDROmorphone HCl 1 MG/ML SYRINGE IVPUSH ×6 (04:49→22:36)
[2021-09-25 04:50] LABS: Basophils Percent Auto 0.3 % (0-2); Eosinophils Absolute Auto 0.2 X10*3/uL (0.0-0.4); Eosinophils Percent Auto 2.4 % (0-4); Hematocrit 43.9 % (42.0-52.0); Hemoglobin 13.8 g/dl (14.0-18.0); Imm Gran Abs Auto 0.03 X10*3/uL (0.00-0.03); Imm Gran Pct Auto 0.4 % (0.0-0.4); Lymphocytes Absolute Auto 1.6 X10*3/uL (1.2-4.9); Lymphocytes Percent Auto 21.3 % (20-40); Mean Corpuscular HGB Conc 31.4 g/dl (31.0-36.0); Mean Corpuscular Hemoglobin 32.7 pg (27.0-33.0); Mean Platelet Volume 10.4 fL (9.4-12.4); Monocytes Absolute Auto 0.5 X10*3/uL (0.1-1.2); Neutrophils Absolute Auto 5.1 x10*3/uL (2.0-8.3); Neutrophils Percent Auto 68.6 % (45-73); Platelet Count 260 X10*3/uL (160-400); Red Blood Count 4.22 X10*6/uL (4.60-5.80); Red Cell Distribution Width 14.1 % (11.0-16.0); White Blood Count 7.5 X10*3/uL (4.8-10.8)
[2021-09-25 05:02] LABS: Alanine Aminotransferase 28 U/L (0-40); Albumin Level 3.3 g/dL (3.5-5.0); Alkaline Phosphatase 42 U/L (39-117); Anion Gap 13 (12-20); Aspartate Amino Transferase 28 U/L (5-37); Bilirubin Total 0.7 mg/dL (0.0-1.0); Blood Urea Nitrogen 9 mg/dL (9-16); Calcium 7.9 mg/dL (8.4-10.2); Carbon Dioxide 27 mmol/L (22-29); Chloride 102 mmol/L (96-108); Creatinine Clr Calc Pharmacy 84.3; Estimated Glomerular Filt Rate > 60; Glucose Fasting 87 mg/dL (60-99); Lipase 612 U/L (8-78); Potassium 4.6 mmol/L (3.3-5.1); Sodium 137 mmol/L (135-145)
[2021-09-25 07:16] VITALS: BP 130/71; PULSE 78; RESP 20; TEMP 36.2; O2SAT 97
[2021-09-25] MEDS: ondansetron HCL 4 MG/2 ML VIAL IVPUSH ×2 (07:42→17:02)
[2021-09-25] MEDS: LORazepam 2 MG/ML VIAL 1 MG IVPUSH (08:27)
[2021-09-25] MEDS: 0.9 % Sodium Chloride Flush 3 ML SYRINGE IVFLUSH ×2 (08:30→17:02)
[2021-09-25] MEDS: amLODIPine Besylate 10 MG TABLET PO (09:07)
[2021-09-25] MEDS: Enoxaparin Sodium 40 MG/0.4 ML SYRINGE SUBCUT (09:07)
[2021-09-25] MEDS: 0.9 % Sodium Chloride 1,000 ML 250 ML IVCONT (10:23)
[2021-09-25 11:26] VITALS: BP 108/58; PULSE 72; RESP 15; TEMP 36.2; O2SAT 97
--- NOTE | 2021-09-25 13:38 | PM.GICN ---
History of Present Illness Data of Consult Service Date: 09/25/21 Requesting physician: Waylon Blevins Primary Care Provider: Unknown Physician HPI Reason for consult: acute alcoholic pancreatitis 46 YM admitted to [facility] on 09/23/21 with abdominal pain: Chief Complaint: abd pain ?this is a 46 YM with past medical history of hypertension and alcohol abuse presents to the hospital with complaints of epigastric abdominal pain that started? on day of presentation.? Patient reports nausea,? 1 episode of vomiting,low appetite.? Patient denies any diarrhea constipation, no urinary symptoms, no lower extremity edema. Patient reports that he drinks 3 to 4 times a week, denies any history of alcohol withdrawal symptoms. ? On arrival to the ED patient hemodynamically stable labs are significant for WBC count of 13.7, sodium of 132, total bili of 1.5, AST of 44, ALT of 41, lipase of 351, UA negative, UDS positive for opioids and cocaine. triglycerides 266 ? CT abdomen pelvic shows stranding adjacent to the distal pancreatic raising suspicious for pancreatitis IMAGING STUDIES: 09/23/[address] SCAN SHOWED: Stranding adjacent to the distal pancreas, raising suspicion for pancreatitis in the proper clinical setting.? 09/25/21 MRCP SHOWED: Limited due to motion artifact. Normal appearing gallbladder. Normal appearing intra and extrahepatic bile ducts. No common bile duct stone seen. Prominent tail of the pancreas and question mild stranding of the adjacent peripancreatic fat. Small right renal cyst. History was obtained from the patient and his girlfriend was at the bedside. Pt complains of sudden onset of 10/10 upper abdominal pain on 09/22/21 in the afternoon which came in waves. Pain initially radiated to the back and later localized to the upper abdomen. Patient noted nausea and bilious vomiting and denies fever chills or sweating. He initially thought it was gas pains and took some Gas-X without relief. Than he took some milk which made pain worse. Patient complains of chronic heartburn (takes Omeprazole) and denies dysphagia or recent change in weight. Pt denies having a BM over the last few days. Denies recent change in bowel habits, constipation, diarrhea, black stools or rectal bleeding. Patient gives a hx of sleep apnea and denies major cardiac or pulmonary problems. Patient lives with his girlfriend and has 2 children. He admits to drinking alcohol (2 beers and 3-4 shots of hard liqour) 3 to 4 times a week since high school He is a social smoker - smokes once in a while on social occasions Patient works in warehouse receiving clerk at a factory Patient denies known family history of pancreatic disease, colon polyps, colon cancer or other GI malignancies. Review of Systems Review of Systems: Yes all other systems are reviewed and are negative Constitutional: Constitutional: Denies headache(s) and Reports poor appetite Eyes: Eyes: Reports no additional eye complaints ENT: Denies headache(s) Cardiovascular: Cardiovascular: Reports chest pain (abdominal pain radiating into the chest) and Denies dyspnea Respiratory: Respiratory: Denies cough and Denies dyspnea Gastrointestinal: Gastrointestinal: Reports abdominal pain, Reports heartburn, Reports nausea and Reports vomiting Genitourinary: Genitourinary: Reports no additional male genitourinary complaints Musculoskeletal: Musculoskeletal: Reports no additional musculoskeletal complaints Neurologic: Denies headache(s) Psychiatric: Psychiatric: Reports no additional psychiatric complaints Allergic/Immunologic: Allergic/Immunologic: Reports no additional allergic/immunologic complaints [facility] Past Medical History Medical History HTN (hypertension) Family History Family History (Updated 09/23/21 @ 07:55 by Adelaida Mcallister MD) Other No family history of coronary artery disease Surgical History Surgical History (Updated 09/23/21 @ 07:55 by Adelaida Mcallister MD) No pertinent past surgical history Social History Social History Household Members: Spouse Housing: Apartment Do you presently have visiting nurse or other home services: No Alcohol intake: current Patient Tobacco Use Status: Never used Tobacco Substance Use Type: Crack/Cocaine service: No Current occupational status: employed Meds Allergies Allergy/AdvReac Type Severity Reaction Status Date / Time No Known Allergies Allergy Verified 09/22/21 16:01 Active Medications: Current Medications Acetaminophen (Acetaminophen 325 Mg Tablet) 650 mg PO Q6H PRN PRN Reason: Pain, Mild (Pain Scale 1-3) Last Admin: 09/24/21 10:04 Dose: 650 mg Documented by: Albuterol Sulfate (Albuterol Sulfate 90 Mcg 8 Gm Inhaler) 2 puff INHALE Q4H PRN PRN Reason: Dyspnea Amlodipine Besylate (Amlodipine Besylate 10 Mg Tablet) 10 mg PO DAILY [facility]; Protocol Last Admin: 09/25/21 09:07 Dose: 10 mg Documented by: Enoxaparin Sodium (Enoxaparin Sodium 40 Mg/0.4 Ml Syringe) 40 mg SUBCUT Q24H [facility] Last Admin: 09/25/21 09:07 Dose: 40 mg Documented by: Fluticasone Propionate (Fluticasone Propionate 100 Mcg Blst.W.Dev) 1 puff INHALE RBID [facility] Last Admin: 09/25/21 09:47 Dose: Not Given Documented by: Hydromorphone HCl (Hydromorphone Hcl 1 Mg/Ml Syringe) 1 mg IVPUSH Q2H PRN; Protocol PRN Reason: Pain, Severe (Pain Scale 7-10) Last Admin: 09/25/21 07:45 Dose: 1 mg Documented by: Sodium Chloride (Ns) 1,000 mls @ 250 mls/hr IVCONT .Q4H [facility] Stop: 09/25/21 14:14 Last Admin: 09/25/21 10:23 Dose: 250 mls/hr Documented by: Omeprazole (Omeprazole 20 Mg Capsule.Dr) 20 mg PO DAILY@0630 [facility] Last Admin: 09/25/21 04:49 Dose: 20 mg Documented by: Ondansetron HCl (Ondansetron Hcl 4 Mg/2 Ml Vial) 4 mg IVPUSH Q8H PRN PRN Reason: Nausea and Vomiting Last Admin: 09/25/21 07:42 Dose: 4 mg Documented by: Sodium Chloride (0.9 % Sodium Chloride Flush 3 Ml Syringe) 3 ml IVFLUSH QSHIFT [facility] Last Admin: 09/25/21 08:30 Dose: 3 ml Documented by: Home Medications Medication Instructions Recorded Confirmed Last Taken Type albuterol sulfate 90 mcg/actuation 2 puff PO Q4H PRN 09/23/21 09/23/21 Unknown History aerosol inhaler amlodipine 10 mg tablet 1 tab PO DAILY 09/23/21 09/23/21 09/18/21 History fluticasone propionate 110 1 puff PO BID 09/23/21 09/23/21 Unknown History mcg/actuation HFA aerosol inhaler (Flovent HFA) hydroxyzine HCl 25 mg tablet 1 tab PO Q8H PRN 09/23/21 09/23/21 Unknown History omeprazole 20 mg capsule,delayed 1 cap PO DAILY 09/23/21 09/23/21 Unknown History release Physical Exam Vital Signs: Vital Signs: Last Vital Signs Temp 97.2 F 09/25/21 11:26 Pulse 72 09/25/21 11:26 Resp 15 09/25/21 11:26 BP 108/58 L 09/25/21 11:26 Pulse Ox 97 09/25/21 11:26 BMI result Body Mass Index 38.7 Const: General: healthy appearing and no acute distress Nutritional Appearance: average body habitus Orientation/consciousness: patient oriented x3 Limitations: no limitations HENMT: Head: Yes normal to inspection Ears: hearing grossly normal bilaterally Eyes: Sclerae: sclerae normal Pupils: Equal, round and reactive pupils present Neck: Neck: Yes normal visual inspection Chest: Chest palpation & inspection: normal inspection of the chest Resp: Effort & Inspection: normal respiratory effort Auscultation: clear to auscultation bilaterally Cardio: Palpation: normal PMI Rate: regular rate Rhythm: regular rhythm Heart sounds: S1 normal heart sound present, S2 normal heart sound present and no murmurs GI: Palpation (GI): Soft to palpation, Tenderness to palpation present (GI) (Moderate diffuse upper abdominal tenderness) and No hepatosplenomegaly present Auscultation: normal bowel sounds Rectal Exam - Male: Yes deferred Skin: General skin exam: no rashes or lesions noted Neuro: General: patient oriented x3, gait normal and moves all extremities Cranial nerves: Yes Equal, round and reactive pupils present Psych: Appearance: grossly normal Mental Status: mental status grossly normal Results Labs CBC & Chem 7: 09/25/21 04:07 09/25/21 04:07 Labs: Short CBC 09/25/21 Range/Units 04:07 WBC 7.5 (4.8-10.8) X10*3/uL Hgb 13.8 L (14.0-18.0) g/dl Hct 43.9 (42.0-52.0) % Plt Count 260 (160-400) X10*3/uL BMP 09/25/21 04:07 Sodium 137 Potassium 4.6 Chloride 102 Carbon Dioxide 27 BUN 9 Creatinine 1.28 Calcium 7.9 L D Liver Function 09/25/21 Range/Units 04:07 Total Bilirubin 0.7 (0.0-1.0) mg/dL AST 28 (5-37) U/L ALT 28 (0-40) U/L Alkaline Phosphatase 42 D (39-117) U/L Albumin 3.3 L (3.5-5.0) g/dL Assessment and Plan (1) Alcohol abuse: Status: Acute (2) Pancreatitis: Status: Acute Plan 46 YM with hypertension and alcohol abuse admitted with epigastric pain that started? on day of presentation.? Patient reports decreased appetite, nausea and 1 episode of vomiting. Patient admits to drinking 3 to 4 times a week, denies any history of alcohol withdrawal symptoms. LFTs were mildly elevated on admission and have normalized Triglycerides were elevated to 266 (not likely to cause pancreatitis) 09/23/[address] SCAN SHOWED: Stranding adjacent to the distal pancreas, raising suspicion for pancreatitis in the proper clinical setting.? 09/25/21 MRCP was negative for choledocholithiasis. 1st episode of acute pancreatitis most likely related to alcohol versus gallbladder stones or sludge. RECOMMENDATIONS: 1. Continue bowel rest, IV PPI, pain medications and anti-emetics 2. Abdominal US to look for gallstones/sludge (can be missed on CT scan) - order placed 3. Repeat lipase in the am. If improving, pt can be started on a clear liquid diet. 4. Patient handout on acute pancreatitis from up-to-date was given to the patient. Procedures Date of Service Date of Service: 09/25/21
--- NOTE | 2021-09-25 14:56 | HO.PM.IMPN ---
Subjective Subjective Date of Service: 09/25/21 Interval History: Continues with diffuse mid epigastric tenderness along with mild nausea. Has attempted sips of water which exacerbated his pain Review of Systems Denies chest pain Denies shortness of breath States nausea no vomiting or diarrhea Persistent upper abdominal pain Physical Exam Vital Signs: Vital Signs: Last Vital Signs Temp 97.2 F 09/25/21 11:26 Pulse 72 09/25/21 11:26 Resp 15 09/25/21 11:26 BP 108/58 L 09/25/21 11:26 Pulse Ox 97 09/25/21 11:26 BMI result Body Mass Index 38.7 Const: Other: Uncomfortable lying quietly in bed Resp: Other: Clear to auscultation bilaterally no rales rhonchi wheezes Cardio: Other: No S4; positive S1-S2; no S3 murmurs rubs or gallops GI: Other: Tender across upper abdomen more localized in mid epigastrium. Mild voluntary guarding. Bowel sounds quiet. No acute peritoneal signs Neuro: Other: Cranial nerves 2-12 grossly intact as tested. Motor is 5/5 all extremities. Sensation intact. Cognition appropriate Extrem: Other: No edema bilaterally Objective Data Active Medications Acetaminophen (Acetaminophen 325 Mg Tablet) 650 mg PO Q6H PRN PRN Reason: Pain, Mild (Pain Scale 1-3) Last Admin: 09/24/21 10:04 Dose: 650 mg Documented by: JOHANA Albuterol Sulfate (Albuterol Sulfate 90 Mcg 8 Gm Inhaler) 2 puff INHALE Q4H PRN PRN Reason: Dyspnea Amlodipine Besylate (Amlodipine Besylate 10 Mg Tablet) 10 mg PO DAILY [facility]; Protocol Last Admin: 09/25/21 09:07 Dose: 10 mg Documented by: AKI Enoxaparin Sodium (Enoxaparin Sodium 40 Mg/0.4 Ml Syringe) 40 mg SUBCUT Q24H [facility] Last Admin: 09/25/21 09:07 Dose: 40 mg Documented by: AKI Fluticasone Propionate (Fluticasone Propionate 100 Mcg Blst.W.Dev) 1 puff INHALE RBID [facility] Last Admin: 09/25/21 09:47 Dose: Not Given Documented by: AKI Non-Admin Reason: Med Not Available Hydromorphone HCl (Hydromorphone Hcl 1 Mg/Ml Syringe) 1 mg IVPUSH Q2H PRN; Protocol PRN Reason: Pain, Severe (Pain Scale 7-10) Last Admin: 09/25/21 14:35 Dose: 1 mg Documented by: AKI Omeprazole (Omeprazole 20 Mg Capsule.Dr) 20 mg PO DAILY@0630 [facility] Last Admin: 09/25/21 04:49 Dose: 20 mg Documented by: JENNA Ondansetron HCl (Ondansetron Hcl 4 Mg/2 Ml Vial) 4 mg IVPUSH Q8H PRN PRN Reason: Nausea and Vomiting Last Admin: 09/25/21 07:42 Dose: 4 mg Documented by: AKI Sodium Chloride (0.9 % Sodium Chloride Flush 3 Ml Syringe) 3 ml IVFLUSH QSHIFT [facility] Last Admin: 09/25/21 08:30 Dose: 3 ml Documented by: AKI Labs CBC & Chem 7: 09/25/21 04:07 09/25/21 04:07 Labs: Laboratory Results - last 24 hr 09/25/21 09/25/21 09/25/21 04:07 04:07 04:07 MCV 104.0 H MCH 32.7 MCHC 31.4 RDW 14.1 Plt Count 260 MPV 10.4 Immature Gran % (Auto) 0.4 Neut % (Auto) 68.6 Lymph % (Auto) 21.3 [place] % (Auto) 7.0 Eos % (Auto) 2.4 Baso % (Auto) 0.3 Lymph # (Auto) 1.6 [place] # (Auto) 0.5 Eos # (Auto) 0.2 Baso # (Auto) 0.0 Abs Immat Gran (auto) 0.03 Absolute Neuts (auto) 5.1 Absolute Nucleated RBC 0.000 Nucleated RBC % (auto) 0.0 Anion Gap 13 Estim Creat Clear Calc 84.3 Estimated GFR > 60 Fasting Glucose 87 Calcium 7.9 L D Total Bilirubin 0.7 AST 28 ALT 28 Alkaline Phosphatase 42 D Total Protein 6.0 L Albumin 3.3 L Lipase 612 H Cancelled Assessment and Plan (1) Pancreatitis: Status: Acute (2) Alcohol abuse: Status: Acute Plan 46-year-old male with past medical history of alcohol abuse presents to the hospital with complaints of epigastric pain found to have acute pancreatitis; remains NPO however minimal improvement overnight 1.Acute pancreatitis - no appreciable improvement...Lipase 351-612 - increase IV fluids, NPO, pain control -MRCP without acute patholgy/obstruction -await GI input 2.Alcohol abuse - not in withdrawal - CIWA neg 3.Hypertension - stable - continue home medications DVT prophylaxis: Lovenox Requires continued hospitalization for at minimum 2 midnights secondary to the need for IV fluids and pain meds; unable to tolerate p.o. Quality Stroke Does the patient have a stroke diagnosis?: No VTE Prior VTE?: No VTE Risk Level:: Medical - moderate - high VTE Device Contraindication: Treatment Not Indicated VTE Drug Contraindication: N/A - Med Ordered
[2021-09-25 15:17] VITALS: BP 130/84; PULSE 85; RESP 20; TEMP 36.2; O2SAT 95
[2021-09-25 19:22] VITALS: BP 121/69; PULSE 81; RESP 20; TEMP 36.9; O2SAT 98
[2021-09-25 23:29] VITALS: BP 137/84; PULSE 77; RESP 14; TEMP 36.8; O2SAT 98
[2021-09-26] VITALS (7 sets, daily range): BP systolic 119–145; BP diastolic 69–88; PULSE 76–89; RESP 16–20; TEMP 36.3–37.2; O2SAT 95–99
[2021-09-26] MEDS: 0.9 % Sodium Chloride Flush 3 ML SYRINGE IVFLUSH ×4 (01:22→19:35)
[2021-09-26] MEDS: HYDROmorphone HCl 1 MG/ML SYRINGE IVPUSH (01:31)
[2021-09-26 05:48] LABS: MANUAL DIFF FLAG NO
[2021-09-26 05:52] LABS: Basophils Percent Auto 0.4 % (0-2); Eosinophils Absolute Auto 0.2 X10*3/uL (0.0-0.4); Eosinophils Percent Auto 2.5 % (0-4); Hematocrit 44.6 % (42.0-52.0); Hemoglobin 14.2 g/dl (14.0-18.0); Imm Gran Abs Auto 0.03 X10*3/uL (0.00-0.03); Imm Gran Pct Auto 0.4 % (0.0-0.4); Lymphocytes Absolute Auto 1.8 X10*3/uL (1.2-4.9); Mean Corpuscular HGB Conc 31.8 g/dl (31.0-36.0); Mean Corpuscular Hemoglobin 32.8 pg (27.0-33.0); Mean Platelet Volume 10.2 fL (9.4-12.4); Monocytes Absolute Auto 0.5 X10*3/uL (0.1-1.2); Monocytes Percent Auto 6.5 % (2-11); Neutrophils Absolute Auto 5.5 x10*3/uL (2.0-8.3); Neutrophils Percent Auto 68.2 % (45-73); Platelet Count 287 X10*3/uL (160-400); Red Blood Count 4.33 X10*6/uL (4.60-5.80)
[2021-09-26] MEDS: Omeprazole 20 MG CAPSULE.DR PO (05:52)
[2021-09-26 06:16] LABS: Alanine Aminotransferase 30 U/L (0-40); Albumin Level 3.6 g/dL (3.5-5.0); Alkaline Phosphatase 49 U/L (39-117); Anion Gap 11 (12-20); Aspartate Amino Transferase 29 U/L (5-37); Bilirubin Total 0.5 mg/dL (0.0-1.0); Blood Urea Nitrogen 7 mg/dL (9-16); Calcium 8.5 mg/dL (8.4-10.2); Carbon Dioxide 26 mmol/L (22-29); Chloride 102 mmol/L (96-108); Estimated Glomerular Filt Rate > 60; Glucose Fasting 94 mg/dL (60-99); Potassium 4.4 mmol/L (3.3-5.1); Sodium 135 mmol/L (135-145); Total Protein 6.5 g/dL (6.5-8.0)
[2021-09-26 06:29] LABS: Lipase 1206 U/L (8-78)
[2021-09-26] MEDS: Fluticasone Propionate 100 MCG BLST.W.DEV 1 PUFF INHALE ×2 (08:22→19:35)
[2021-09-26] MEDS: amLODIPine Besylate 10 MG TABLET PO (10:24)
[2021-09-26] MEDS: oxyCODONE HCl Immed Release 5 MG TABLET 10 MG PO ×5 (10:24→23:28)
[2021-09-26] MEDS: Enoxaparin Sodium 40 MG/0.4 ML SYRINGE SUBCUT (10:25)
--- NOTE | 2021-09-26 14:57 | HO.PM.IMPN ---
Subjective Subjective Date of Service: 09/26/21 Interval History: Improved overnight. Has tolerated clear liquids thus far today Review of Systems Denies chest pain Denies shortness of breath States nausea no vomiting or diarrhea Persistent upper abdominal pain Physical Exam Vital Signs: Vital Signs: Last Vital Signs Temp 98.4 F 09/26/21 11:18 Pulse 87 09/26/21 11:18 Resp 18 09/26/21 11:18 BP 119/88 09/26/21 11:18 Pulse Ox 99 09/26/21 11:18 BMI result Body Mass Index 38.7 Const: Other: Uncomfortable lying quietly in bed Resp: Other: Clear to auscultation bilaterally no rales rhonchi wheezes Cardio: Other: No S4; positive S1-S2; no S3 murmurs rubs or gallops GI: Other: Tender across upper abdomen more localized in mid epigastrium. Mild voluntary guarding. Bowel sounds quiet. No acute peritoneal signs Neuro: Other: Cranial nerves 2-12 grossly intact as tested. Motor is 5/5 all extremities. Sensation intact. Cognition appropriate Extrem: Other: No edema bilaterally Objective Data Active Medications Acetaminophen (Acetaminophen 325 Mg Tablet) 650 mg PO Q6H PRN PRN Reason: Pain, Mild (Pain Scale 1-3) Last Admin: 09/24/21 10:04 Dose: 650 mg Documented by: JOHANA Albuterol Sulfate (Albuterol Sulfate 90 Mcg 8 Gm Inhaler) 2 puff INHALE Q4H PRN PRN Reason: Dyspnea Amlodipine Besylate (Amlodipine Besylate 10 Mg Tablet) 10 mg PO DAILY [facility]; Protocol Last Admin: 09/26/21 10:24 Dose: 10 mg Documented by: MP Enoxaparin Sodium (Enoxaparin Sodium 40 Mg/0.4 Ml Syringe) 40 mg SUBCUT Q24H [facility] Last Admin: 09/26/21 10:25 Dose: 40 mg Documented by: MP Fluticasone Propionate (Fluticasone Propionate 100 Mcg Blst.W.Dev) 1 puff INHALE RBID [facility] Last Admin: 09/26/21 08:22 Dose: 1 puff Documented by: MAMADOU Hydromorphone HCl (Hydromorphone Hcl 1 Mg/Ml Syringe) 1 mg IVPUSH Q2H PRN; Protocol PRN Reason: Pain, Severe (Pain Scale 7-10) Last Admin: 09/26/21 01:31 Dose: 1 mg Documented by: OLU Omeprazole (Omeprazole 20 Mg Capsule.Dr) 20 mg PO DAILY@0630 [facility] Last Admin: 09/26/21 05:52 Dose: 20 mg Documented by: OLU Ondansetron HCl (Ondansetron Hcl 4 Mg/2 Ml Vial) 4 mg IVPUSH Q8H PRN PRN Reason: Nausea and Vomiting Last Admin: 09/25/21 17:02 Dose: 4 mg Documented by: AKI Oxycodone HCl (Oxycodone Hcl Immed Release 5 Mg Tablet) 10 mg PO Q3H PRN PRN Reason: Pain, Moderate (Pain Scale 4-6 Last Admin: 09/26/21 13:24 Dose: 10 mg Documented by: MP Sodium Chloride (0.9 % Sodium Chloride Flush 3 Ml Syringe) 3 ml IVFLUSH [facility] Last Admin: 09/26/21 10:26 Dose: 3 ml Documented by: MP Labs CBC & Chem 7: 09/26/21 05:32 09/26/21 05:32 Labs: Laboratory Results - last 24 hr 09/26/21 09/26/21 09/26/21 05:32 05:32 05:32 MCV 103.0 H MCH 32.8 MCHC 31.8 RDW 14.0 Plt Count 287 MPV 10.2 Immature Gran % (Auto) 0.4 Neut % (Auto) 68.2 Lymph % (Auto) 22.0 [place] % (Auto) 6.5 Eos % (Auto) 2.5 Baso % (Auto) 0.4 Lymph # (Auto) 1.8 [place] # (Auto) 0.5 Eos # (Auto) 0.2 Baso # (Auto) 0.0 Abs Immat Gran (auto) 0.03 Absolute Neuts (auto) 5.5 Absolute Nucleated RBC 0.000 Nucleated RBC % (auto) 0.0 Anion Gap 11 L Estim Creat Clear Calc 85.0 Estimated GFR > 60 Fasting Glucose 94 Calcium 8.5 D Total Bilirubin 0.5 AST 29 ALT 30 Alkaline Phosphatase 49 Total Protein 6.5 Albumin 3.6 Lipase 1206 H Assessment and Plan (1) Pancreatitis: Status: Acute (2) Alcohol abuse: Status: Acute Plan 46-year-old male with past medical history of alcohol abuse presents to the hospital with complaints of epigastric pain found to have acute pancreatitis; remains NPO however minimal improvement overnight 1.Acute pancreatitis -tolerating clears....will advance as tolerated - increase IV fluids, pain control 2.Alcohol abuse - not in withdrawal - CIWA neg 3.Hypertension - stable - continue home medications DVT prophylaxis: Lovenox Requires continued hospitalization for at minimum 1 midnights secondary to the need for IV fluids and pain meds; unable to tolerate p.o. Quality Stroke Does the patient have a stroke diagnosis?: No VTE Prior VTE?: No VTE Risk Level:: Medical - moderate - high VTE Device Contraindication: Treatment Not Indicated VTE Drug Contraindication: N/A - Med Ordered
--- NOTE | 2021-09-26 15:59 | MHC.CM.PN ---
PATIENT ON CLEARS PLAN IS TO ADVANCE DIET AND DC HOME IF TOLERATES. POTENTIAL DC SATURDAY
[2021-09-27] VITALS (8 sets, daily range): BP systolic 123–155; BP diastolic 70–81; PULSE 71–92; RESP 16–20; TEMP 36.3–37.1; O2SAT 96–98
[2021-09-27] MEDS: Omeprazole 20 MG CAPSULE.DR PO (05:54)
[2021-09-27 06:03] LABS: MANUAL DIFF FLAG NO
[2021-09-27 06:10] LABS: Basophils Percent Auto 0.4 % (0-2); Eosinophils Absolute Auto 0.2 X10*3/uL (0.0-0.4); Hematocrit 46.9 % (42.0-52.0); Hemoglobin 14.7 g/dl (14.0-18.0); Imm Gran Abs Auto 0.03 X10*3/uL (0.00-0.03); Imm Gran Pct Auto 0.4 % (0.0-0.4); Lymphocytes Percent Auto 26.6 % (20-40); Mean Corpuscular HGB Conc 31.3 g/dl (31.0-36.0); Mean Corpuscular Hemoglobin 32.7 pg (27.0-33.0); Mean Corpuscular Volume 104.5 fL (80.0-98.0); Mean Platelet Volume 10.3 fL (9.4-12.4); Monocytes Absolute Auto 0.5 X10*3/uL (0.1-1.2); Monocytes Percent Auto 6.6 % (2-11); Neutrophils Absolute Auto 4.9 x10*3/uL (2.0-8.3); Platelet Count 307 X10*3/uL (160-400); Red Blood Count 4.49 X10*6/uL (4.60-5.80); Red Cell Distribution Width 13.9 % (11.0-16.0); White Blood Count 7.6 X10*3/uL (4.8-10.8)
[2021-09-27 06:34] LABS: Alanine Aminotransferase 32 U/L (0-40); Albumin Level 3.7 g/dL (3.5-5.0); Alkaline Phosphatase 53 U/L (39-117); Anion Gap 13 (12-20); Aspartate Amino Transferase 28 U/L (5-37); Bilirubin Total 0.6 mg/dL (0.0-1.0); Blood Urea Nitrogen 8 mg/dL (9-16); Carbon Dioxide 25 mmol/L (22-29); Chloride 102 mmol/L (96-108); Creatinine Clr Calc Pharmacy 86.3; Estimated Glomerular Filt Rate > 60; Glucose Fasting 95 mg/dL (60-99); Potassium 4.4 mmol/L (3.3-5.1); Sodium 136 mmol/L (135-145); Total Protein 6.8 g/dL (6.5-8.0)
[2021-09-27] MEDS: amLODIPine Besylate 10 MG TABLET PO (07:30)
[2021-09-27] MEDS: oxyCODONE HCl Immed Release 5 MG TABLET 10 MG PO ×5 (07:30→23:55)
[2021-09-27] MEDS: 0.9 % Sodium Chloride Flush 3 ML SYRINGE IVFLUSH ×3 (07:31→20:08)
[2021-09-27] MEDS: ondansetron HCL 4 MG/2 ML VIAL IVPUSH ×2 (07:35→16:32)
[2021-09-27] MEDS: Fluticasone Propionate 100 MCG BLST.W.DEV 1 PUFF INHALE ×2 (08:25→20:33)
[2021-09-27] MEDS: Enoxaparin Sodium 40 MG/0.4 ML SYRINGE SUBCUT (11:32)
--- NOTE | 2021-09-27 13:04 | HO.PM.IMPN ---
Subjective Subjective Date of Service: 09/27/21 Interval History: Improved overnight. Has tolerated diet in small amounts with mild pain Review of Systems Denies chest pain Denies shortness of breath States nausea no vomiting or diarrhea Persistent upper abdominal pain Physical Exam Vital Signs: Vital Signs: Last Vital Signs Temp 97.7 F 09/27/21 07:28 Pulse 89 09/27/21 07:28 Resp 18 09/27/21 08:26 BP 151/79 H 09/27/21 07:28 Pulse Ox 97 09/27/21 07:28 BMI result Body Mass Index 38.7 Const: Other: Uncomfortable lying quietly in bed Resp: Other: Clear to auscultation bilaterally no rales rhonchi wheezes Cardio: Other: No S4; positive S1-S2; no S3 murmurs rubs or gallops GI: Other: Tender across upper abdomen more localized in mid epigastrium. Mild voluntary guarding. Bowel sounds quiet. No acute peritoneal signs Neuro: Other: Cranial nerves 2-12 grossly intact as tested. Motor is 5/5 all extremities. Sensation intact. Cognition appropriate Extrem: Other: No edema bilaterally Objective Data Active Medications Acetaminophen (Acetaminophen 325 Mg Tablet) 650 mg PO Q6H PRN PRN Reason: Pain, Mild (Pain Scale 1-3) Last Admin: 09/24/21 10:04 Dose: 650 mg Documented by: JOHANA Albuterol Sulfate (Albuterol Sulfate 90 Mcg 8 Gm Inhaler) 2 puff INHALE Q4H PRN PRN Reason: Dyspnea Amlodipine Besylate (Amlodipine Besylate 10 Mg Tablet) 10 mg PO DAILY [facility]; Protocol Last Admin: 09/27/21 07:30 Dose: 10 mg Documented by: TIFFANY Enoxaparin Sodium (Enoxaparin Sodium 40 Mg/0.4 Ml Syringe) 40 mg SUBCUT Q24H [facility] Last Admin: 09/27/21 11:32 Dose: 40 mg Documented by: TIFFANY Fluticasone Propionate (Fluticasone Propionate 100 Mcg Blst.W.Dev) 1 puff INHALE RBID [facility] Last Admin: 09/27/21 08:25 Dose: 1 puff Documented by: TERESASREGINALD Hydromorphone HCl (Hydromorphone Hcl 1 Mg/Ml Syringe) 1 mg IVPUSH Q2H PRN; Protocol PRN Reason: Pain, Severe (Pain Scale 7-10) Last Admin: 09/26/21 01:31 Dose: 1 mg Documented by: OLU Omeprazole (Omeprazole 20 Mg Capsule.Dr) 20 mg PO DAILY@0630 [facility] Last Admin: 09/27/21 05:54 Dose: 20 mg Documented by: MARIELENA Ondansetron HCl (Ondansetron Hcl 4 Mg/2 Ml Vial) 4 mg IVPUSH Q8H PRN PRN Reason: Nausea and Vomiting Last Admin: 09/27/21 07:35 Dose: 4 mg Documented by: TIFFANY Oxycodone HCl (Oxycodone Hcl Immed Release 5 Mg Tablet) 10 mg PO Q3H PRN PRN Reason: Pain, Moderate (Pain Scale 4-6 Last Admin: 09/27/21 11:31 Dose: 10 mg Documented by: TIFFANY Sodium Chloride (0.9 % Sodium Chloride Flush 3 Ml Syringe) 3 ml IVFLUSH [facility] Last Admin: 09/27/21 07:31 Dose: 3 ml Documented by: TIFFANY Labs CBC & Chem 7: 09/27/21 05:26 09/27/21 05:26 Labs: Laboratory Results - last 24 hr 09/27/21 09/27/21 05:26 05:26 MCV 104.5 H MCH 32.7 MCHC 31.3 RDW 13.9 Plt Count 307 MPV 10.3 Immature Gran % (Auto) 0.4 Neut % (Auto) 64.0 Lymph % (Auto) 26.6 [place] % (Auto) 6.6 Eos % (Auto) 2.0 Baso % (Auto) 0.4 Lymph # (Auto) 2.0 [place] # (Auto) 0.5 Eos # (Auto) 0.2 Baso # (Auto) 0.0 Abs Immat Gran (auto) 0.03 Absolute Neuts (auto) 4.9 Absolute Nucleated RBC 0.000 Nucleated RBC % (auto) 0.0 Anion Gap 13 Estim Creat Clear Calc 86.3 Estimated GFR > 60 Fasting Glucose 95 Calcium 9.0 Total Bilirubin 0.6 AST 28 ALT 32 Alkaline Phosphatase 53 Total Protein 6.8 Albumin 3.7 Assessment and Plan (1) Pancreatitis: Status: Acute (2) Alcohol abuse: Status: Acute Plan 46-year-old male with past medical history of alcohol abuse presents to the hospital with complaints of epigastric pain found to have acute pancreatitis; remains NPO however minimal improvement overnight 1.Acute pancreatitis -tolerating small amounts of diet...not ready for dc -IV fluids, pain control 2.Alcohol abuse - not in withdrawal - CIWA neg 3.Hypertension - stable - continue home medications DVT prophylaxis: Lovenox Requires continued hospitalization for at minimum 1 midnights secondary to the need for IV fluids and pain meds; unable to tolerate adequate po Quality Stroke Does the patient have a stroke diagnosis?: No VTE Prior VTE?: No VTE Risk Level:: Medical - moderate - high VTE Device Contraindication: Treatment Not Indicated VTE Drug Contraindication: N/A - Med Ordered
[2021-09-28] VITALS (8 sets, daily range): BP systolic 128–155; BP diastolic 58–85; PULSE 68–84; RESP 14–18; TEMP 36.4–36.9; O2SAT 94–98
[2021-09-28] MEDS: Omeprazole 20 MG CAPSULE.DR PO (05:28)
[2021-09-28] MEDS: oxyCODONE HCl Immed Release 5 MG TABLET 10 MG PO ×6 (06:47→23:46)
[2021-09-28] MEDS: 0.9 % Sodium Chloride Flush 3 ML SYRINGE IVFLUSH ×3 (07:50→20:24)
[2021-09-28] MEDS: amLODIPine Besylate 10 MG TABLET PO (07:50)
[2021-09-28] MEDS: ondansetron HCL 4 MG/2 ML VIAL IVPUSH ×2 (07:50→17:00)
[2021-09-28] MEDS: Fluticasone Propionate 100 MCG BLST.W.DEV 1 PUFF INHALE ×2 (08:55→20:06)
[2021-09-28] MEDS: Enoxaparin Sodium 40 MG/0.4 ML SYRINGE SUBCUT (10:32)
--- NOTE | 2021-09-28 11:09 | MHC.RECOVRN ---
Met with pt in 385 after consults placed to CARE Team and Addiction Medicine for alcohol use. Pt denies hx AUD and AUD tx. 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 Pt states I thought it was normal. Pt reports drinking 4-5 beers plus a couple shots when out with the guys. Pt UDS positive for opiates and cocaine. Pt denies opiate use, likely due to opiates given to pt prior to obtaining urine sample. Pt reports occasional cocaine use, [place]. Pt denies wanting to stop and being unable to, interference with work, failure to fulfill major role obligations, legal issues, hx medical complications relating to alcohol use, ever experiencing withdrawal. Pt reports this is first hospitalization for pancreatitis. Pt denies family hx ANDREW. Pt states I'm gonna be honest, I'm going to chill for a bit but I'm not going to stop drinking. Pt informs t/w there have been months without alcohol in the past and feels confident in ability to abstain for a period of time. Pt declines any recovery resources or referrals. Pt provided with t/w contact information if needed.
--- NOTE | 2021-09-28 12:08 | HO.PM.IMPN ---
Subjective Subjective Date of Service: 09/28/21 Interval History: Still has significant nausea + abd pain this AM + did not eat breakfast. Knows he has to quit drinking Review of Systems Review of Systems: Yes all other systems are reviewed and are negative Physical Exam Vital Signs: Vital Signs: Last Vital Signs Temp 98.5 F 09/28/21 11:28 Pulse 77 09/28/21 11:28 Resp 18 09/28/21 11:28 BP 133/83 09/28/21 11:28 Pulse Ox 97 09/28/21 11:28 BMI result Body Mass Index 38.7 Gen: in no acute distress HEENT: sclera anicteric, moist mucus membranes Neck: supple Lungs: clear to auscultation bilaterally Heart: regular rate and rhythm, no murmurs Abd: soft, epigastric tenderness without rebound, obese Ext: no edema Skin: warm/well-perfused Neuro: alert and oriented x3, no focal findings Psych: appropriate affect Objective Data Active Medications Acetaminophen (Acetaminophen 325 Mg Tablet) 650 mg PO Q6H PRN PRN Reason: Pain, Mild (Pain Scale 1-3) Last Admin: 09/24/21 10:04 Dose: 650 mg Documented by: JOHANA Albuterol Sulfate (Albuterol Sulfate 90 Mcg 8 Gm Inhaler) 2 puff INHALE Q4H PRN PRN Reason: Dyspnea Amlodipine Besylate (Amlodipine Besylate 10 Mg Tablet) 10 mg PO DAILY [facility]; Protocol Last Admin: 09/28/21 07:50 Dose: 10 mg Documented by: TIFFANY Enoxaparin Sodium (Enoxaparin Sodium 40 Mg/0.4 Ml Syringe) 40 mg SUBCUT Q24H [facility] Last Admin: 09/28/21 10:32 Dose: 40 mg Documented by: TIFFANY Fluticasone Propionate (Fluticasone Propionate 100 Mcg Blst.W.Dev) 1 puff INHALE RBID [facility] Last Admin: 09/28/21 08:55 Dose: 1 puff Documented by: MICHELINE Hydromorphone HCl (Hydromorphone Hcl 1 Mg/Ml Syringe) 1 mg IVPUSH Q2H PRN; Protocol PRN Reason: Pain, Severe (Pain Scale 7-10) Last Admin: 09/26/21 01:31 Dose: 1 mg Documented by: OLU Omeprazole (Omeprazole 20 Mg Capsule.Dr) 20 mg PO DAILY@0630 [facility] Last Admin: 09/28/21 05:28 Dose: 20 mg Documented by: ANDRY Ondansetron HCl (Ondansetron Hcl 4 Mg/2 Ml Vial) 4 mg IVPUSH Q8H PRN PRN Reason: Nausea and Vomiting Last Admin: 09/28/21 07:50 Dose: 4 mg Documented by: TIFFANY Oxycodone HCl (Oxycodone Hcl Immed Release 5 Mg Tablet) 10 mg PO Q3H PRN PRN Reason: Pain, Moderate (Pain Scale 4-6 Last Admin: 09/28/21 10:32 Dose: 10 mg Documented by: TIFFANY Sodium Chloride (0.9 % Sodium Chloride Flush 3 Ml Syringe) 3 ml IVFLUSH QSHIFT [facility] Last Admin: 09/28/21 07:50 Dose: 3 ml Documented by: TIFFANY Labs CBC & Chem 7: 09/27/21 05:26 09/27/21 05:26 Assessment and Plan (1) Pancreatitis: Status: Acute (2) Alcohol abuse: Status: Acute Plan hospital d#6 46yo M with AUD admitted for acute alcoholic pancreatitis # acute alcoholic pancreatitis - continue IV fluids, pain control - diet as tolerated # HTN - continue amlodipine # cocaine abuse - CARE Team consult, HBV/HCV/HIV screen # VTE ppx - LMWH In my professional opinion, patient requires continued hospitalization for IV fluids + pain control; still not tolerating solid diet. Quality Stroke Does the patient have a stroke diagnosis?: No VTE Prior VTE?: No VTE Risk Level:: Medical - moderate - high VTE Device Contraindication: Treatment Not Indicated VTE Drug Contraindication: N/A - Med Ordered
[2021-09-28] MEDS: Lactated Ringers 1,000 ML 125 ML IVCONT ×2 (14:11→20:23)
[2021-09-28 16:04] LABS: Folate 11.3 ng/mL (> or = 4.0); Vitamin B12 783 pg/mL (200-900)
[2021-09-29 03:49] VITALS: BP 131/66; PULSE 64; RESP 18; TEMP 36.5; O2SAT 96
[2021-09-29] MEDS: Lactated Ringers 1,000 ML 125 ML IVCONT (06:13)
[2021-09-29] MEDS: Omeprazole 20 MG CAPSULE.DR PO (06:13)
[2021-09-29] MEDS: ondansetron HCL 4 MG/2 ML VIAL IVPUSH (06:25)
[2021-09-29] MEDS: oxyCODONE HCl Immed Release 5 MG TABLET 10 MG PO ×2 (06:25→09:55)
[2021-09-29 07:18] VITALS: BP 137/69; PULSE 77; RESP 18; TEMP 36.8; O2SAT 94
[2021-09-29 07:54] LABS: HBS Num1 3.49 mIU/mL (0-7.99); HBc Num1 0.17 S/CO (0.00-0.79); Hepatitis B Core Antibody Nonreactive (Nonreactive); ~HepC Num1 0.13 S/CO (0.00-0.79); ~Hepatitis B Surface Antibody NONREACTIVE (Nonreactive); ~Hepatitis C Antibody Nonreactive (Nonreactive)
[2021-09-29 08:16] LABS: HBsAGNum1 0.18 S/CO (0.00-0.99); HIV AB/AG Nonreactive (Nonreactive); HIV Num 1 0.04 S/CO (0.00-0.99); Hepatitis B Surface Antigen Negative (Negative)
[2021-09-29 08:50] VITALS: PULSE 77; RESP 18; O2SAT 94
[2021-09-29] MEDS: Fluticasone Propionate 100 MCG BLST.W.DEV 1 PUFF INHALE (08:50)
--- NOTE | 2021-09-29 09:38 | P.DS_ITS ---
DS: Providers Provider Date of Service: 09/29/21 Date of admission: 09/23/21 06:18 Date of discharge: 09/29/21 Primary care physician: Unknown Physician Consults: 09/25/21 08:34 Consult to Gastroenterology Routine Consulting Provider: Liudmila Martino Reason for consultation: Pancreatitis Has provider been notified: No 09/28/21 08:41 Addiction Medicine Routine Consulting Provider: Bre Blackmon Reason for consultation: etoh Consult to Care Team Routine Comment: Reason for consultation: etoh DS: Diagnosis Discharge Diagnosis (1) Pancreatitis: Status: Acute (2) Alcohol abuse: Status: Acute (3) Cocaine abuse: Status: Acute DS: Summary Hospital Course Hospital Course: from admission history and physical by hospitalist Adelaida Mcallister MD, 09/23/21: this is a 46 more old male with past medical history of hypertension and alcohol abuse presents to the hospital with complaints of epigastric abdominal pain that started? on day of presentation.? Patient reports nausea,? 1 episode of vomiting,low appetite.? Patient denies any diarrhea constipation, no urinary symptoms, no lower extremity edema. Patient reports that he drinks 3 to 4 times a week, denies any history of alcohol withdrawal symptoms. ? On arrival to the ED patient hemodynamically stable labs are significant for WBC count of 13.7, sodium of 132, total bili of 1.5, AST of 44, ALT of 41, lipase of 351, UA negative, UDS positive for opioids and cocaine. triglycerides 266 ? CT abdomen pelvic shows stranding adjacent to the distal pancreatic raising suspicious for pancreatitis This 46 year-old man was admitted with acute alcoholic pancreatitis that resolved with IV fluids, bowel rest, and opioids. Diet was advanced and he met with the Recovery Team. He declined additional supports. Counseled to avoid alcohol and cocaine. He was discharged home with instructions to follow-up with his primary care provider in 1 week. Time Spent with Patient Time attestation: Total time spent providing and/or coordinating discharge services: Discharge coordination time: Greater than 30 minutes Quality: Stroke Does the patient have a stroke diagnosis?: No Physical Exam Vital Signs: Vital Signs: Last Vital Signs Temp 98.3 F 09/29/21 07:18 Pulse 77 09/29/21 07:18 Resp 18 09/29/21 08:50 BP 137/69 09/29/21 07:18 Pulse Ox 94 09/29/21 07:18 BMI result Body Mass Index 38.7 Gen: in no acute distress HEENT: sclera anicteric, moist mucus membranes Neck: supple Lungs: clear to auscultation bilaterally Heart: regular rate and rhythm, no murmurs Abd: soft, mild tenderness epigastrium, no rebound, obese Ext: no edema Skin: warm/well-perfused Neuro: alert and oriented x3, no focal findings Psych: appropriate affect DS: Data Data Completed and Pending Completed studies during hospitalization [Text1]: Laboratory Results WBC 7.6 X10*3/uL (4.8-10.8) 09/27/21 05:26 RBC 4.49 X10*6/uL (4.60-5.80) L 09/27/21 05:26 Hgb 14.7 g/dl (14.0-18.0) 09/27/21 05:26 Hct 46.9 % (42.0-52.0) 09/27/21 05:26 MCV 104.5 fL (80.0-98.0) H 09/27/21 05:26 MCH 32.7 pg (27.0-33.0) 09/27/21 05:26 MCHC 31.3 g/dl (31.0-36.0) 09/27/21 05:26 RDW 13.9 % (11.0-16.0) 09/27/21 05:26 Plt Count 307 X10*3/uL (160-400) 09/27/21 05:26 MPV 10.3 fL (9.4-12.4) 09/27/21 05:26 Immature Gran % (Auto) 0.4 % (0.0-0.4) 09/27/21 05:26 Neut % (Auto) 64.0 % (45-73) 09/27/21 05:26 Lymph % (Auto) 26.6 % (20-40) 09/27/21 05:26 [place] % (Auto) 6.6 % (2-11) 09/27/21 05:26 Eos % (Auto) 2.0 % (0-4) 09/27/21 05:26 Baso % (Auto) 0.4 % (0-2) 09/27/21 05:26 Lymph # (Auto) 2.0 X10*3/uL (1.2-4.9) 09/27/21 05:26 [place] # (Auto) 0.5 X10*3/uL (0.1-1.2) 09/27/21 05:26 Eos # (Auto) 0.2 X10*3/uL (0.0-0.4) 09/27/21 05:26 Baso # (Auto) 0.0 X10*3/uL (0.0-0.2) 09/27/21 05:26 Abs Immat Gran (auto) 0.03 X10*3/uL (0.00-0.03) 09/27/21 05:26 Absolute Neuts (auto) 4.9 x10*3/uL (2.0-8.3) 09/27/21 05:26 Absolute Nucleated RBC 0.000 X10*3/uL (0.0-0.012) 09/27/21 05:26 Nucleated RBC % (auto) 0.0 /100WBC (0.0-0.2) 09/27/21 05:26 Sodium 136 mmol/L (135-145) 09/27/21 05:26 Potassium 4.4 mmol/L (3.3-5.1) 09/27/21 05:26 Chloride 102 mmol/L (96-108) 09/27/21 05:26 Carbon Dioxide 25 mmol/L (22-29) 09/27/21 05:26 Anion Gap 13 (12-20) 09/27/21 05:26 BUN 8 mg/dL (9-16) L 09/27/21 05:26 Creatinine 1.25 mg/dL (0.5-1.4) 09/27/21 05:26 Estim Creat Clear Calc 86.3 09/27/21 05:26 Estimated GFR > 60 09/27/21 05:26 Random Glucose 82 mg/dL (60-115) 09/24/21 06:54 Fasting Glucose 95 mg/dL (60-99) 09/27/21 05:26 Calcium 9.0 mg/dL (8.4-10.2) 09/27/21 05:26 Magnesium 2.0 mg/dL (1.6-2.6) 09/23/21 03:06 Total Bilirubin 0.6 mg/dL (0.0-1.0) 09/27/21 05:26 Direct Bilirubin 0.5 mg/dL (0.0-0.5) 09/23/21 03:06 AST 28 U/L (5-37) 09/27/21 05:26 ALT 32 U/L (0-40) 09/27/21 05:26 Alkaline Phosphatase 53 U/L (39-117) 09/27/21 05:26 Total Protein 6.8 g/dL (6.5-8.0) 09/27/21 05:26 Albumin 3.7 g/dL (3.5-5.0) 09/27/21 05:26 Triglycerides 266 mg/dL 09/23/21 03:06 Lipase 1206 U/L (8-78) H 09/26/21 05:32 Vitamin B12 783 pg/mL (200-900) 09/28/21 14:31 Folate 11.3 ng/mL (> or = 4.0) 09/28/21 14:31 Urine Color YELLOW 09/23/21 04:27 Urine Appearance CLEAR 09/23/21 04:27 Urine pH 7.5 (5.0-8.0) 09/23/21 04:27 Ur Specific [place] 1.010 (1.005-1.025) 09/23/21 04:27 Urine Protein NEG MG/DL (NEG-TRACE) 09/23/21 04:27 Urine Glucose (UA) NEG MG/DL (NEG) 09/23/21 04:27 Urine Ketones 5 MG/DL (NEG) 09/23/21 04:27 Urine Blood NEG (NEG) 09/23/21 04:27 Urine Nitrite NEG (NEG) 09/23/21 04:27 Ur Leukocyte Esterase NEG (NEG) 09/23/21 04:27 Urine Opiates Screen POSITIVE (Not Detect) H 09/23/21 04:27 Urine Fentanyl Screen Not Detected (Not Detect) 09/23/21 04:27 Ur Barbiturates Screen Not Detected (Not Detect) 09/23/21 04:27 Ur Phencyclidine Scrn Not Detected (Not Detect) 09/23/21 04:27 Ur Amphetamines Screen Not Detected (Not Detect) 09/23/21 04:27 U Benzodiazepines Scrn Not Detected (Not Detect) 09/23/21 04:27 Urine Cocaine Screen POSITIVE (Not Detect) H 09/23/21 04:27 U Marijuana (THC) Screen Not Detected (Not Detect) 09/23/21 04:27 COVID-19 (RODRIGUEZ) Negative (Negative) 09/23/21 11:24 COVID-19 Clin Com See Note 09/23/21 11:24 Hep Bs Antigen Negative (Negative) 09/28/21 14:31 Hep Bs Antibody NONREACTIVE (Nonreactive) 09/28/21 14:31 Hep B Core Total Ab Nonreactive (Nonreactive) 09/28/21 14:31 Hepatitis C Ab (EIA) Nonreactive (Nonreactive) 09/28/21 14:31 HIV 1&2 Ab/P24 Ag 4thGn Nonreactive (Nonreactive) 09/28/21 14:31 Impressions Abdomen/Pelvis CT 09/23/21 04:20 IMPRESSION: Stranding adjacent to the distal pancreas, raising suspicion for pancreatitis in the proper clinical setting. Fleischner guidelines were followed. Cholangiopancreatography MRI 09/25/21 08:50 IMPRESSION: Limited due to motion artifact. Normal appearing gallbladder. Normal appearing intra and extrahepatic bile ducts. No common bile duct stone seen. Prominent tail of the pancreas and question mild stranding of the adjacent peripancreatic fat. Small right renal cyst. Abdomen Ultrasound 09/25/21 15:11 IMPRESSION: Normal-appearing gallbladder. No gallstone seen. Discharge Plan Discharge Patient Disposition: Home, Self-Care Discharge Diagnosis: acute alcoholic pancreatitis Referrals: Randal Martinez MD [Physician] - 1 Week Physician,Unknown J [Primary Care Provider] - 1 Week Discharge Medications: New ondansetron HCl 4 mg tablet 4 mg PO Q8H PRN (Reason: nausea/v) Qty: 10 0RF Continued amlodipine 10 mg tablet 1 tab PO DAILY 0RF omeprazole 20 mg capsule,delayed release(DR/EC) 1 cap PO DAILY 0RF albuterol sulfate 90 mcg/actuation HFA aerosol inhaler 2 puff PO Q4H PRN (Reason: Dyspnea) 0RF Flovent HFA 110 mcg/actuation HFA aerosol inhaler 1 puff PO BID 0RF hydroxyzine HCl 25 mg tablet 1 tab PO Q8H PRN (Reason: anxiety) 0RF Discharge Orders: Discharge Order (Routine); Ordered 09/29/21 Ordered By: Jaehyun Onelia Diet: low fat, low cholesterol and low salt diet Activity on Discharge: no alcohol Stand Alone Forms: Patient Portal Discharge page Care Plan Goals: recovery from pancreatitis sobriety Health Concerns: acute alcoholic pancreatitis Plan of Treatment: bland, low-fat diet ondansetron as needed for nausea + vomiting see your primary care doctor in 1-2 weeks avoid alcohol + cocaine + all substances of abuse Assessment: see Discharge Summary Patient Instructions: Pancreatitis (DC)
[2021-09-29] MEDS: 0.9 % Sodium Chloride Flush 3 ML SYRINGE IVFLUSH (10:00)
[2021-09-29] MEDS: amLODIPine Besylate 10 MG TABLET PO (10:00)
--- NOTE | 2021-09-29 10:14 | MHC.CM.PN ---
nurse janell night shift manager note electronic medical record reviewed and patient is aware that he will be discharge home today discharged home with s/o no services transportation patient to self arrange pcp dr misael brown educated about importance of health care proxy and again declined educated about community etoh support s as [facility] control and recovery special [facility] for etoh abuse and declined all paperworkk completed
--- NOTE | 2021-09-29 11:06 | PM.EVENT ---
Event Note Date of Service: 09/29/21 Event Note: Addiction note Please see Recovery Support RN note
[2021-09-29 11:26] VITALS: BP 133/72; PULSE 77; RESP 18; TEMP 37.1; O2SAT 95
== END 2021-09-29 12:45 | disposition home or self-care (01) | DRG 282 ==
LOC: HO.ED 05:03 → HO.EDOVER 06:21 → HO.S3 09-24 12:09
PROVIDERS: Hospitalist; Internal Medicine Gastroenterology; Admitting Provider Internal Medicine; Emergency Provider Emergency Medicine; PCP Internal Medicine; Visit Provider Family Medicine
DX: K85.20 Alcohol induced acute pancreatitis without necrosis or infection (principal); F10.10 Alcohol abuse, uncomplicated; F14.10 Cocaine abuse, uncomplicated; I10 Essential (primary) hypertension; Z20.822 Contact with and (suspected) exposure to COVID-19; Z79.51 Long term (current) use of inhaled steroids; Z79.899 Other long term (current) drug therapy
CPT/HCPCS: 36415; 74177; 74181; 76705; 80048; 80053; 80076; 80307; 81003; 82607; 82746; 83690; 83735; 84478; 85025; 86704; 86706; 86803; 87340; 87389; 87635; 93005; 96361; 96374; 99285; J1170; J1650; J2060; J2270; J2405; Q9967

== ENCOUNTER 2021-12-18 17:39 | Emergency (ER) | payer OTHER, SELFPAY ==
--- NOTE | ~2021-12-18 | CT_ITS ---
EXAMINATION: CT ABDOMEN AND PELVIS WITHOUT CONTRAST CLINICAL INFORMATION: Acute pancreatitis COMPARISON: CT abdomen pelvis 09/23/2021, ultrasound abdomen 09/25/2021, MRCP 09/25/2021 TECHNIQUE: Multidetector volumetric imaging was performed from the superior aspect of the liver through the pubic symphysis. Sagittal and coronal reformatted images were obtained on the technologist's workstation. This CT examination was performed using dose optimization techniques as appropriate, variously including the following: *Automated exposure control *Adjustment of mA and/or kV according to patient size (this includes techniques or standardized protocols for targeted exams where dose is matched to indication/reason for exam; i.e. extremities or head) *Use of iterative reconstruction technique DLP: 666r mGy-cm FINDINGS: LUNG BASES: The visualized lung bases are unremarkable. LIVER, GALLBLADDER, AND BILIARY TREE: The liver is normal in size, shape, and attenuation. No focal hepatic lesion or biliary ductal dilatation is present. The gallbladder is unremarkable with no evidence of radiopaque gallstones, gallbladder wall thickening, or obvious pericholecystic inflammatory changes. PANCREAS: The pancreas is generous in size. No peripancreatic edema or fluid collections are seen. The previously seen area of stranding around the pancreatic tail is no longer present. The pancreatic duct does not appear dilated. SPLEEN: Unremarkable. ADRENAL GLANDS: Unremarkable. KIDNEYS AND URETERS: The kidneys are normal in size, shape, and attenuation. No hydronephrosis, hydroureter, or calculi seen. A 1.3 cm water density benign cyst is noted in the mid right kidney. This needs no further imaging or follow-up. No solid renal masses are seen on this noncontrast enhanced study. No perinephric stranding. BLADDER: Unremarkable. GASTROINTESTINAL TRACT: The small and large bowel are unremarkable. The appendix is not seen with certainty. ABDOMINAL WALL: Tiny periumbilical hernia seen containing a small amount of fluid and fat. LYMPH NODES: Multiple small shotty retroperitoneal lymph nodes are present but there is no adenopathy seen in appearances are unchanged when compared to the prior study. VASCULAR: Unremarkable. PELVIC VISCERA: Prostate and seminal vesicles unremarkable. OSSEOUS STRUCTURES: Unremarkable. CT/CT abdomen pelvis wo con IMPRESSION: There is no convincing evidence of pancreatitis present. Previously seen stranding around the pancreatic tail has resolved. Fleischner guidelines were followed.
[2021-12-18 17:43] VITALS: BP 158/95; PULSE 93; RESP 18; TEMP 37.1; O2SAT 98; BMI 39.5
[2021-12-18 19:01] LABS: Hematocrit 47.9 % (42.0-52.0); Hemoglobin 15.4 g/dl (14.0-18.0); Mean Corpuscular HGB Conc 32.2 g/dl (31.0-36.0); Mean Corpuscular Hemoglobin 31.7 pg (27.0-33.0); Mean Corpuscular Volume 98.6 fL (80.0-98.0); Mean Platelet Volume 10.1 fL (9.4-12.4); Platelet Count 330 X10*3/uL (160-400); Red Blood Count 4.86 X10*6/uL (4.60-5.80); Red Cell Distribution Width 14.6 % (11.0-16.0); White Blood Count 10.2 X10*3/uL (4.8-10.8)
[2021-12-18 19:11] LABS: COVID-19 Test Negative (Negative); IDNOW Serial# 16C4AD1C
[2021-12-18 19:15] LABS: Anion Gap 14 (12-20); Blood Urea Nitrogen 12 mg/dL (9-16); Calcium 9.9 mg/dL (8.4-10.2); Carbon Dioxide 28 mmol/L (22-29); Chloride 101 mmol/L (96-108); Creatinine Clr Calc Pharmacy 75.8; Estimated Glomerular Filt Rate 53; Glucose Random 98 mg/dL (60-115); Lipase 196 U/L (8-78); Potassium 5.4 mmol/L (3.3-5.1); Sodium 138 mmol/L (135-145)
--- NOTE | 2021-12-18 20:40 | ED.ABDPAIN ---
HPI - Abdominal Pain General Chief Complaint: Abdominal Pain Stated Complaint: Abdominal Pains Time Seen by Provider: 12/18/21 20:25 Source: patient Mode of arrival: ambulatory Limitations: no limitations History of Present Illness HPI narrative: Patients with history of alcohol induced pancreatitis in 10/03 since then patient stopped drinking alcohol but continued to have dull epigastric pain whenever he eats food. For last 5 days pain comes noticed pain is got worse with increased nausea does not feel hungry last meal was yesterday no vomiting no diarrhea no fever or chills no abdominal distension Related Data Home Medications Medication Instructions Recorded Confirmed albuterol sulfate 90 mcg/actuation 2 puff PO Q4H PRN 09/23/21 09/23/21 aerosol inhaler amlodipine 10 mg tablet 1 tab PO DAILY 09/23/21 09/23/21 fluticasone propionate 110 1 puff PO BID 09/23/21 09/23/21 mcg/actuation HFA aerosol inhaler (Flovent HFA) hydroxyzine HCl 25 mg tablet 1 tab PO Q8H PRN 09/23/21 09/23/21 omeprazole 20 mg capsule,delayed 1 cap PO DAILY 09/23/21 09/23/21 release Previous Rx's Medication Instructions Recorded ondansetron HCl 4 mg tablet 4 mg PO Q8H PRN #10 tab 09/29/21 oxycodone 5 mg tablet 5 mg PO BID PRN #6 tab 09/29/21 lipase 10,500-protease 1 cap PO TID #90 cap 12/19/21 35,500-amylase 61,500 unit capsule,delayed rel (Pancreaze) ondansetron 4 mg disintegrating 4 mg PO Q6-8H PRN #10 tab 12/19/21 tablet oxycodone 5 mg tablet 5 mg PO Q6H PRN #20 tab 12/19/21 Allergies Allergy/AdvReac Type Severity Reaction Status Date / Time No Known Allergies Allergy Verified 09/22/21 16:01 Review of Systems Review of Systems Yes all other systems are reviewed and are negative [facility] Past Medical History Medical History Alcohol abuse HTN (hypertension) Pancreatitis Surgical History No pertinent past surgical history Family History Family History Other No family history of coronary artery disease Social History Social History Household Members: Spouse Housing: Apartment Do you presently have visiting nurse or other home services: No Alcohol intake: current Patient Tobacco Use Status: Never used Tobacco Substance Use Type: Crack/Cocaine Advance Directives: No Advance Directives Information Provided: No service: No Current occupational status: employed Physical Exam ED Vital Signs: Vital Signs - 24 hr 12/18/21 17:43 12/18/21 20:47 12/19/21 00:00 Temperature 98.7 F 98.3 F 98.3 F Pulse Rate 93 82 78 Respiratory Rate 18 18 16 Blood Pressure 158/95 H 139/87 122/79 Pulse Oximetry 98 97 97 BMI result Body Mass Index 39.5 Appearance: Alert. Oriented X3. No acute distress. Eyes: No pallor or icterus ENT: Pharynx normal. Oral Mucosa moist Neck: Normal inspection. Neck supple. CVS: Normal heart rate and rhythm. Pulses normal. Respiratory: No respiratory distress. Equal air entry bilateral, no wheezing/rales/rhonchi Abdomen: Soft and tenderness with guarding mid abdomen and left upper quadrant, Bowel sounds are present, no mass palpable, no CVA tenderness Skin: Skin warm and dry. Normal skin color. Normal skin turgor. Extremities: No lower extremity edema. No calf tenderness Neuro: Oriented X 3. MDM - Abdominal Pain MDM Narrative Medical decision making narrative: Patient with acute on chronic pancreatitis CT scan negative for any acute inflammation lipase has improved now only 196 patient is still having the pain see. Will discharge patient home on pancreatic enzymes and pain medication. Patient advised to continue to take his Lipitor for high cholesterol at this time his triglyceride level was 415. Lab Data Attestation: I reviewed the patient's lab results. Result diagrams: 12/18/21 18:46 12/18/21 18:46 Labs: Lab Results 12/18/21 12/18/21 12/18/21 Range/Units 18:46 18:46 18:46 WBC 10.2 (4.8-10.8) X10*3/uL RBC 4.86 (4.60-5.80) X10*6/uL Hgb 15.4 (14.0-18.0) g/dl Hct 47.9 (42.0-52.0) % MCV 98.6 H (80.0-98.0) fL MCH 31.7 (27.0-33.0) pg MCHC 32.2 (31.0-36.0) g/dl RDW 14.6 (11.0-16.0) % Plt Count 330 (160-400) X10*3/uL MPV 10.1 (9.4-12.4) fL Absolute Nucleated RBC 0.000 (0.0-0.012) X10*3/uL Nucleated RBC % (auto) 0.0 (0.0-0.2) /100WBC Sodium 138 (135-145) mmol/L Potassium 5.4 H D (3.3-5.1) mmol/L Chloride 101 (96-108) mmol/L Carbon Dioxide 28 (22-29) mmol/L Anion Gap 14 (12-20) BUN 12 (9-16) mg/dL Creatinine 1.44 H (0.5-1.4) mg/dL Estim Creat Clear Calc 75.8 Estimated GFR 53 Random Glucose 98 (60-115) mg/dL Calcium 9.9 D (8.4-10.2) mg/dL Triglycerides 415 mg/dL Lipase 196 H (8-78) U/L Urine Color Urine Appearance Urine pH (5.0-8.0) Ur Specific [place] (1.005-1.025) Urine Protein (NEG-TRACE) MG/DL Urine Glucose (UA) (NEG) MG/DL Urine Ketones (NEG) MG/DL Urine Blood (NEG) Urine Nitrite (NEG) Ur Leukocyte Esterase (NEG) COVID-19 (RODRIGUEZ) Negative (Negative) COVID-19 Clin Com See Note 12/18/21 Range/Units 22:42 WBC (4.8-10.8) X10*3/uL RBC (4.60-5.80) X10*6/uL Hgb (14.0-18.0) g/dl Hct (42.0-52.0) % MCV (80.0-98.0) fL MCH (27.0-33.0) pg MCHC (31.0-36.0) g/dl RDW (11.0-16.0) % Plt Count (160-400) X10*3/uL MPV (9.4-12.4) fL Absolute Nucleated RBC (0.0-0.012) X10*3/uL Nucleated RBC % (auto) (0.0-0.2) /100WBC Sodium (135-145) mmol/L Potassium (3.3-5.1) mmol/L Chloride (96-108) mmol/L Carbon Dioxide (22-29) mmol/L Anion Gap (12-20) BUN (9-16) mg/dL Creatinine (0.5-1.4) mg/dL Estim Creat Clear Calc Estimated GFR Random Glucose (60-115) mg/dL Calcium (8.4-10.2) mg/dL Triglycerides mg/dL Lipase (8-78) U/L Urine Color YELLOW Urine Appearance CLEAR Urine pH 6.0 (5.0-8.0) Ur Specific [place] <= 1.005 (1.005-1.025) Urine Protein NEG (NEG-TRACE) MG/DL Urine Glucose (UA) NEG (NEG) MG/DL Urine Ketones NEG (NEG) MG/DL Urine Blood NEG (NEG) Urine Nitrite NEG (NEG) Ur Leukocyte Esterase NEG (NEG) COVID-19 (RODRIGUEZ) (Negative) COVID-19 Clin Com Discharge Plan Discharge Clinical Impression: Chronic pancreatitis Patient Disposition: Home, Self-Care Instructions: Pancreatitis (ED) Additional Instructions: Drink plenty of fluids Avoid fried food and high-protein diet Take medication as prescribed for pain and digestion Follow with surgical supply assistant if pain continues Take your cholesterol medication Prescriptions: New Pancreaze 10,500-35,500- 61,500 unit capsule,delayed release(DR/EC) 1 cap PO TID Qty: 90 0RF Rx Instructions: administer with meals and/or snacks ondansetron 4 mg tablet,disintegrating 4 mg PO Q6-8H PRN (Reason: nausea and vomiting) Qty: 10 0RF oxycodone 5 mg tablet 5 mg PO Q6H PRN (Reason: Pain, Severe) Qty: 20 0RF No Action amlodipine 10 mg tablet 1 tab PO DAILY 0RF omeprazole 20 mg capsule,delayed release(DR/EC) 1 cap PO DAILY 0RF albuterol sulfate 90 mcg/actuation HFA aerosol inhaler 2 puff PO Q4H PRN (Reason: Dyspnea) 0RF Flovent HFA 110 mcg/actuation HFA aerosol inhaler 1 puff PO BID 0RF hydroxyzine HCl 25 mg tablet 1 tab PO Q8H PRN (Reason: anxiety) 0RF ondansetron HCl 4 mg tablet 4 mg PO Q8H PRN (Reason: nausea/v) Qty: 10 0RF oxycodone 5 mg tablet 5 mg PO BID PRN (Reason: severe pain (scale score 7-10)) Qty: 6 0RF Referrals: Rg Stewart MD [Physician] - 1 week Stand Alone Forms: Work/School Release
[2021-12-18 20:47] VITALS: BP 139/87; PULSE 82; RESP 18; TEMP 36.8; O2SAT 97
[2021-12-18] MEDS: ondansetron HCL 4 MG/2 ML VIAL IVPUSH (21:11)
[2021-12-18] MEDS: Morphine Sulfate 4 MG/ML CARTRIDGE IVPUSH (21:13)
[2021-12-18] MEDS: Famotidine/PF 20 MG/2 ML VIAL IVPUSH (21:17)
[2021-12-18] MEDS: 0.9 % Sodium Chloride 1,000 ML 999 ML IV (21:18)
[2021-12-18 21:42] LABS: Triglycerides 415 mg/dL
[2021-12-18 22:52] LABS: Appearance Urine CLEAR; Color Urine YELLOW; Glucose Urine UA NEG (NEG); Leukocyte Esterase Urine NEG (NEG); Nitrite Urine NEG (NEG); Specific Gravity - Urine <= 1.005 (1.005-1.025); Urine Blood NEG (NEG); Urine Ketones NEG (NEG); Urine Protein NEG (NEG-TRACE)
[2021-12-18] MEDS: HYDROmorphone HCl 1 MG/ML SYRINGE IVPUSH (23:21)
[2021-12-19] VITALS: BP 122/79; PULSE 78; RESP 16; TEMP 36.8; O2SAT 97
--- NOTE | 2021-12-19 00:52 | PC.NURSE ---
Pt discharged by Dr. Harp with potassium level 5.4
[2021-12-19 00:53] VITALS: BP 138/94; PULSE 80; RESP 18; O2SAT 96
== END 2021-12-19 00:54 | disposition home or self-care (01) ==
PROVIDERS: Emergency Provider Internal Medicine; PCP Internal Medicine
DX: K86.1 Other chronic pancreatitis (principal); K86.81 Exocrine pancreatic insufficiency; Z20.822 Contact with and (suspected) exposure to COVID-19; R10.13 Epigastric pain; E78.5 Hyperlipidemia, unspecified; Z79.02 Long term (current) use of antithrombotics/antiplatelets
CPT/HCPCS: 74176; 80048; 81003; 83690; 84478; 85027; 87635; 96361; 96374; 96375; 99283; 99284; J1170; J2270; J2405

== ENCOUNTER 2022-02-12 13:16 | Inpatient (IN) | payer OTHER, SELFPAY ==
--- NOTE | ~2022-02-12 | CT_ITS ---
EXAMINATION: CT ABDOMEN AND PELVIS WITH CONTRAST CLINICAL INFORMATION: Epigastric pain with severe pancreatitis COMPARISON: CT abdomen pelvis 12/18/2021 and 09/23/2021 TECHNIQUE: Multidetector volumetric images were obtained from the superior aspect of the liver through the pubic symphysis following administration 85 mL of Omnipaque 350 intravenous contrast. Sagittal and coronal reformatted images were obtained on the technologist's workstation. Oral contrast: No This CT examination was performed using dose optimization techniques as appropriate, variously including the following: *Automated exposure control *Adjustment of mA and/or kV according to patient size (this includes techniques or standardized protocols for targeted exams where dose is matched to indication/reason for exam; i.e. extremities or head) *Use of iterative reconstruction technique DLP: 691 mGy-cm FINDINGS: LUNG BASES: The visualized lung bases are unremarkable. LIVER, GALLBLADDER, AND BILIARY TREE: The liver is normal in size, shape, and attenuation. No focal hepatic lesion or biliary ductal dilatation is present. The gallbladder is unremarkable with no evidence of radiopaque gallstones, gallbladder wall thickening, or obvious pericholecystic inflammatory changes. PANCREAS: Again seen is a generous sized pancreas, but new since the prior study are peripancreatic inflammatory changes with some surrounding fluid consistent with acute pancreatitis. There is an area of relative hypoenhancement measuring 2.5 cm in the tail of the pancreas (3:26). No pancreatic stones or ductal dilatation is seen. The neck and uncinate process appear normal. Inflammatory changes extend to the gastric wall with loss of fat plane. No free intraperitoneal fluid is present. Should be noted that changes of pancreatitis were seen on the 09/23/2021 study but had resolved by 12/18/2021. The changes seen on the current study are more marked than were present on 09/23/2021 SPLEEN: Unremarkable. ADRENAL GLANDS: Unremarkable. KIDNEYS AND URETERS: The kidneys are normal in size, shape, and attenuation. No hydronephrosis, hydroureter, or calculi seen. A 1.3 cm water density benign cyst is noted in the mid right kidney. This needs no further imaging or follow-up. No solid renal masses are seen. There is an area of scarring on the right, better appreciated on this contrast-enhanced study than on the prior noncontrast exam in the right mid kidney posterolaterally (3:37). BLADDER: Unremarkable. GASTROINTESTINAL TRACT: A small hiatal hernia is present. The small and large bowel are unremarkable. The appendix is not seen. ABDOMINAL WALL: Tiny periumbilical hernia seen containing a small amount of fluid and fat. LYMPH NODES: Multiple small shotty retroperitoneal lymph nodes are present but there is no adenopathy seen in appearances are unchanged when compared to the prior study. VASCULAR: Unremarkable. No evidence of splenic vein thrombosis as it runs near the area of pancreatitis. PELVIC VISCERA: Prostate and seminal vesicles unremarkable. OSSEOUS STRUCTURES: Unremarkable. CT/CT abdomen pelvis w con IMPRESSION: Acute pancreatitis with peripancreatic inflammatory change and small amount of fluid. There is no drainable collection. 2.5 cm area of relative hypoenhancement in the tail of the pancreas. Fleischner guidelines were followed.
--- NOTE | ~2022-02-12 | CT_ITS ---
EXAMINATION: CT ABDOMEN AND PELVIS WITH CONTRAST CLINICAL INFORMATION: Worsening pancreatitis. COMPARISON: CT abdomen and pelvis dated 02/12/2022. TECHNIQUE: Multidetector volumetric images were obtained from the superior aspect of the liver through the pubic symphysis following administration 85 mL of Omnipaque 350 intravenous contrast. Sagittal and coronal reformatted images were obtained on the technologist's workstation. Oral contrast: No This CT examination was performed using dose optimization techniques as appropriate, variously including the following: *Automated exposure control *Adjustment of mA and/or kV according to patient size (this includes techniques or standardized protocols for targeted exams where dose is matched to indication/reason for exam; i.e. extremities or head) *Use of iterative reconstruction technique DLP: 755 mGy-cm FINDINGS: LUNG BASES: There is a small left pleural effusion, with adjacent compressive atelectasis. There is a trace right pleural effusion. LIVER, GALLBLADDER, AND BILIARY TREE: The liver is normal in size, shape, and attenuation. No focal hepatic lesion or biliary ductal dilatation is present. The gallbladder is unremarkable with no evidence of radiopaque gallstones, gallbladder wall thickening, or obvious pericholecystic inflammatory changes. PANCREAS: There is generalized pancreatic enlargement. No focal mass or ductal dilatation is noted. There is peripancreatic fat stranding towards the head and tail portions. As well, there is low-attenuation fluid adjacent to the pancreatic tail, largely new from 12/18/2021. There is a stable small focus of relative hypoenhancement within the tail (3:33). Inflammatory changes again obscure the fat plane the pancreas from the lesser curvature of the stomach. Free fluid extends into the anterior left pararenal space and the upper left paracolic gutter. There is minimal free fluid in the right paracolic gutter. No organized abscess is noted. SPLEEN: Unremarkable. ADRENAL GLANDS: Unremarkable. KIDNEYS AND URETERS: The kidneys are normal in size, shape, and attenuation. No hydronephrosis, hydroureter, or calculi seen. A low-attenuation mid right renal cyst is redemonstrated. No perinephric stranding. BLADDER: Unremarkable. GASTROINTESTINAL TRACT: The small and large bowel are unremarkable. No obstruction, free intraperitoneal air or abscess is seen. There is no focal bowel wall thickening. The vermiform appendix is not identified. ABDOMINAL WALL: There is a small fat-containing umbilical hernia. There is mild generalized anasarca. LYMPH NODES: There are multiple shotty, nonpathologically enlarged para-aortic lymph nodes, one of the largest measuring 2.0 x 0.9 cm (3:39). No sizable abdominopelvic limited adenopathy is noted. VASCULAR: There is mild aortoiliac atherosclerotic calcification. No abdominal aortic aneurysm is seen. PELVIC VISCERA: The prostate and seminal vesicles are unremarkable. OSSEOUS STRUCTURES: There is multi-level moderate lower thoracic spondylosis. No acute or aggressive osseous abnormality is seen. CT/CT abdomen pelvis w con IMPRESSION: There is increased severity of previously described pancreatitis, with persistent inflammatory change and increased free fluid, particularly situated adjacent to the tail portion. This fluid shows no enhancing rind to suggest pseudocyst formation. There is no drainable abscess noted. A stable small focus of hypoenhancement is seen within the pancreatic tail. Fleischner guidelines were followed.
[2022-02-12 13:25] VITALS: BP 153/102; PULSE 87; O2SAT 99
[2022-02-12 14:20] VITALS: BP 146/121; PULSE 80; RESP 18; O2SAT 100; BMI 38.7
[2022-02-12 14:30] LABS: MANUAL DIFF FLAG NO
[2022-02-12 14:31] LABS: Basophils Percent Auto 0.1 % (0-2); Eosinophils Percent Auto 0.1 % (0-4); Hematocrit 52.3 % (42.0-52.0); Hemoglobin 17.2 g/dl (14.0-18.0); Imm Gran Abs Auto 0.06 X10*3/uL (0.00-0.03); Imm Gran Pct Auto 0.4 % (0.0-0.4); Lymphocytes Absolute Auto 1.2 X10*3/uL (1.2-4.9); Lymphocytes Percent Auto 7.9 % (20-40); Mean Corpuscular HGB Conc 32.9 g/dl (31.0-36.0); Mean Corpuscular Hemoglobin 31.9 pg (27.0-33.0); Mean Corpuscular Volume 96.9 fL (80.0-98.0); Monocytes Absolute Auto 0.8 X10*3/uL (0.1-1.2); Neutrophils Absolute Auto 13.2 x10*3/uL (2.0-8.3); Neutrophils Percent Auto 86.5 % (45-73); Platelet Count 279 X10*3/uL (160-400); Red Cell Distribution Width 13.7 % (11.0-16.0); White Blood Count 15.2 X10*3/uL (4.8-10.8)
[2022-02-12 14:56] LABS: Alanine Aminotransferase 29 U/L (0-40); Albumin Level 4.2 g/dL (3.5-5.0); Alkaline Phosphatase 47 U/L (39-117); Anion Gap 19 (12-20); Aspartate Amino Transferase 30 U/L (5-37); Bilirubin Direct 0.5 mg/dL (0.0-0.5); Bilirubin Total 1.2 mg/dL (0.0-1.0); Blood Urea Nitrogen 11 mg/dL (9-16); Calcium 9.3 mg/dL (8.4-10.2); Carbon Dioxide 23 mmol/L (22-29); Chloride 99 mmol/L (96-108); Creatinine Clr Calc Pharmacy 66.7; Estimated Glomerular Filt Rate 45; Glucose Random 127 mg/dL (60-115); Potassium 5.7 mmol/L (3.3-5.1); Sodium 135 mmol/L (135-145); Total Protein 7.7 g/dL (6.5-8.0)
[2022-02-12 15:10] LABS: Lipase 1583 U/L (8-78)
--- NOTE | 2022-02-12 15:18 | ECG_ITS ---
Test Reason : ELEVATED POTASSIUM Blood Pressure : / mmHG Vent. Rate : 087 BPM Atrial Rate : 087 BPM P-R Int : 146 ms QRS Dur : 082 ms QT Int : 340 ms P-R-T Axes : 031 -08 -08 degrees QTc Int : 409 ms Normal sinus rhythm Normal ECG When compared with ECG of 23-SEP-2021 03:57, No significant change was found Referred By: Madai Rodriguez Electronically Signed By:WADE PERALES MD
[2022-02-12 15:38] LABS: Magnesium 1.7 mg/dL (1.6-2.6)
[2022-02-12] MEDS: ondansetron HCL 4 MG/2 ML VIAL IVPUSH ×2 (15:38→23:25)
[2022-02-12] MEDS: HYDROmorphone HCl 0.5 MG/0.5 ML SYRINGE IVPUSH (15:38)
[2022-02-12] MEDS: 0.9 % Sodium Chloride 2,000 ML 999 ML IV (15:38)
--- NOTE | 2022-02-12 16:04 | ED.ABDPAIN ---
HPI - Abdominal Pain General Chief Complaint: Abdominal Pain Stated Complaint: ABDO PAIN Time Seen by Provider: 02/12/22 13:22 Source: patient Mode of arrival: ambulatory History of Present Illness HPI narrative: 46-year-old male with history of binge alcohol drinking presents with severe epigastric pain associated with nausea, vomiting, chills, diarrhea and states that he was drinking a lot in [place] over the weekend and feels like ?this is the worst pancreatitis I probably have ever had . Related Data Home Medications Medication Instructions Recorded Confirmed albuterol sulfate 90 mcg/actuation 2 puff PO Q4H PRN Dyspnea 09/23/21 09/23/21 aerosol inhaler amlodipine 10 mg tablet 1 tab PO DAILY 09/23/21 09/23/21 fluticasone propionate 110 1 puff PO BID 09/23/21 09/23/21 mcg/actuation HFA aerosol inhaler (Flovent HFA) hydroxyzine HCl 25 mg tablet 1 tab PO Q8H PRN anxiety 09/23/21 09/23/21 omeprazole 20 mg capsule,delayed 1 cap PO DAILY 09/23/21 09/23/21 release gabapentin 300 mg capsule cap 02/12/22 Previous Rx's Medication Instructions Recorded lipase 10,500-protease 1 cap PO TID #90 caps 12/19/21 35,500-amylase 61,500 unit capsule,delayed rel (Pancreaze) ondansetron 4 mg disintegrating 4 mg PO Q6-8H PRN nausea and 12/19/21 tablet vomiting #10 tabs Allergies Allergy/AdvReac Type Severity Reaction Status Date / Time No Known Allergies Allergy Verified 09/22/21 16:01 Review of Systems Review of Systems Pertinent positives and negatives as stated in HPI 10 point review of systems is otherwise negative. [facility] [place] Past Medical History Source: nursing notes reviewed Medical History Alcohol abuse HTN (hypertension) Pancreatitis Surgical History No pertinent past surgical history Family History Family History Other No family history of coronary artery disease Social History Social History Household Members: Spouse Housing: Apartment Do you presently have visiting nurse or other home services: No Alcohol intake: current Patient Tobacco Use Status: Never used Tobacco Substance Use Type: Crack/Cocaine Advance Directives: No Advance Directives Information Provided: No service: No Current occupational status: employed Physical Exam ED Vital Signs: Vital Signs - 24 hr 02/12/22 14:20 Pulse Rate 80 Respiratory Rate 18 Blood Pressure 146/121 H Pulse Oximetry 100 Oxygen Delivery Method Room Air BMI result Body Mass Index 38.7 VITAL SIGNS: Reviewed. GENERAL: Well developed, well nourished, in no acute distress. HEAD: Normocephalic/atraumatic EYES: PERRLA, EOMI EARS: Ext canals without abnormality OROPHARYNX: no oral lesions noted, posterior pharynx clear LUNGS: Normal breath sounds. No adventitious sounds or accessory muscle use. SpO2<100> CARDIOVASCULAR: Regular rate and rhythm without noted murmurs ABDOMEN: Soft, epigastric pain, non-distended with bowel sounds. MUSCULOSKELETAL: No tenderness, deformities, or effusions noted on gross inspection. EXTREMITIES: No cyanosis, clubbing or edema. SKIN: Inspection of the skin reveals no rashes NEUROLOGIC: Alert and oriented x 4. Strength and sensation to light touch were grossly intact x 4. Course Course Course Narrative: 46-year-old male with history and clinical presentation consistent with alcoholic pancreatitis. Patient will receive IV fluid boluses, labs, and CT scan. On review of all labs lipase is elevated at over 1500, although potassium is noted be elevated this is likely secondary to a component of dehydration and diarrhea. Patient also receiving pain medication. Leukocytosis is secondary to reactive response and not acute infection. Patient is receiving IV fluid boluses for pancreatitis. I discussed the case with the inpatient hospitalist who accepts admission. MDM - Abdominal Pain Lab Data Result diagrams: 02/12/22 14:27 02/12/22 14:27 Labs: Lab Results 02/12/22 02/12/22 Range/Units 14:27 14:27 WBC 15.2 H (4.8-10.8) X10*3/uL RBC 5.40 (4.60-5.80) X10*6/uL Hgb 17.2 (14.0-18.0) g/dl Hct 52.3 H (42.0-52.0) % MCV 96.9 (80.0-98.0) fL MCH 31.9 (27.0-33.0) pg MCHC 32.9 (31.0-36.0) g/dl RDW 13.7 (11.0-16.0) % Plt Count 279 (160-400) X10*3/uL MPV 10.0 (9.4-12.4) fL Immature Gran % (Auto) 0.4 (0.0-0.4) % Neut % (Auto) 86.5 H (45-73) % Lymph % (Auto) 7.9 L (20-40) % Dougherty % (Auto) 5.0 (2-11) % Eos % (Auto) 0.1 (0-4) % Baso % (Auto) 0.1 (0-2) % Lymph # (Auto) 1.2 (1.2-4.9) X10*3/uL [place] # (Auto) 0.8 (0.1-1.2) X10*3/uL Eos # (Auto) 0.0 (0.0-0.4) X10*3/uL Baso # (Auto) 0.0 (0.0-0.2) X10*3/uL Abs Immat Gran (auto) 0.06 H (0.00-0.03) X10*3/uL Absolute Neuts (auto) 13.2 H (2.0-8.3) x10*3/uL Absolute Nucleated RBC 0.000 (0.0-0.012) X10*3/uL Nucleated RBC % (auto) 0.0 (0.0-0.2) /100WBC Sodium 135 (135-145) mmol/L Potassium 5.7 H (3.3-5.1) mmol/L Chloride 99 (96-108) mmol/L Carbon Dioxide 23 (22-29) mmol/L Anion Gap 19 (12-20) BUN 11 (9-16) mg/dL Creatinine 1.67 H (0.5-1.4) mg/dL Estim Creat Clear Calc 66.7 Estimated GFR 45 Random Glucose 127 H (60-115) mg/dL Calcium 9.3 D (8.4-10.2) mg/dL Magnesium 1.7 (1.6-2.6) mg/dL Total Bilirubin 1.2 H (0.0-1.0) mg/dL Direct Bilirubin 0.5 (0.0-0.5) mg/dL AST 30 (5-37) U/L ALT 29 (0-40) U/L Alkaline Phosphatase 47 (39-117) U/L Total Protein 7.7 (6.5-8.0) g/dL Albumin 4.2 (3.5-5.0) g/dL Lipase 1583 H (8-78) U/L Critical Care Time Critical Care Time Critical Care Time: Yes Total Critical Care Time: 30 Attestation: I personally attest to this time spent taking care of the patient. Discharge Plan Discharge Clinical Impression: Acute alcoholic pancreatitis, RANDY (acute kidney injury), Acute dehydration, Intractable abdominal pain Patient Disposition: Admitted As Inpatient
[2022-02-12] MEDS: iohexoL 350 MG/ML 100 ML INFUS..BTL IV (16:09)
[2022-02-12] MEDS: HYDROmorphone HCl 1 MG/ML SYRINGE IVPUSH ×4 (16:41→23:24)
--- NOTE | 2022-02-12 16:55 | PM.IMHP ---
History of Present Illness Date of Service: 02/12/22 Chief Complaint: abd pain 46M presented with abd pain. Patient states pain started 3 days prior to presentation. Was dull, 3/10, epigastric radiating to left side. Pain subsided the next day, then patient went on a trip where he had multiple beers. The next day patient had no pain, however, the day after patient woke up with severe epigastric tentative 10 abdominal pain radiating to both sides, associated with nausea and vomiting, inability to tolerate p.o., similar in quality but more intense than previous pancreatitis episode. In ED patient noted to have acute pancreatitis on CT scan with an elevated lipase of 1583. Review of Systems Review of Systems: Constitutional: Denies fever, denies Chills Eyes: denies blurry vision ENT: denies sore throat CVS: denies chest pain Respiratory: Denies dyspnea GI: abdominal pain : denies dysuria MSK: denies neck pain Skin: denies rash Neuro: denies specific motor weakness Psych: denies suicidal ideation Endocrine: denies heat/cold intolerance Hematologic: denies easy bleeding Allergy: denies hives [facility] Medical History (Updated 02/12/22 @ 16:58 by Augustine Tinajero MD) Alcohol abuse HLD (hyperlipidemia) HTN (hypertension) Obesity Pancreatitis Family History Other No family history of coronary artery disease Surgical History No pertinent past surgical history Social History Household Members: Spouse Housing: Apartment Do you presently have visiting nurse or other home services: No Alcohol intake: current Patient Tobacco Use Status: Never used Tobacco Substance Use Type: Crack/Cocaine Advance Directives: No Advance Directives Information Provided: No service: No Current occupational status: employed Meds Allergies Allergy/AdvReac Type Severity Reaction Status Date / Time No Known Allergies Allergy Verified 09/22/21 16:01 Active Medications: Current Medications Albuterol Sulfate (Albuterol Sulfate 90 Mcg 8 Gm Inhaler) 2 puff INHALE RQ4H PRN PRN Reason: sob Enoxaparin Sodium (Enoxaparin Sodium 40 Mg/0.4 Ml Syringe) 40 mg SUBCUT Q24H JAYLA Hydromorphone HCl (Hydromorphone Hcl 0.5 Mg/0.5 Ml Syringe) 1 mg IVPUSH Q4H PRN; Protocol PRN Reason: moderate pain Sodium Chloride (Ns) 2,000 mls @ 999 mls/hr IV .Q2H1M [facility] Stop: 02/12/22 17:30 Last Admin: 02/12/22 15:38 Dose: 999 mls/hr Lactated Ringer's (Lr) 1,000 mls @ 150 mls/hr IVCONT .Q6H40M [facility] Pharmacy Consult (Consult Rx Perform Med Rec) 1 each MISCELLANE ONCE PRN PRN Reason: Consult order Sodium Chloride (0.9 % Sodium Chloride Flush 3 Ml Syringe) 3 ml IVFLUSH QSHIFT [facility] Home Medications Medication Instructions Recorded Confirmed Last Taken Type albuterol sulfate 90 mcg/actuation 2 puff PO Q4H PRN Dyspnea 09/23/21 09/23/21 Unknown History aerosol inhaler amlodipine 10 mg tablet 1 tab PO DAILY 09/23/21 09/23/21 09/18/21 History fluticasone propionate 110 1 puff PO BID 09/23/21 09/23/21 Unknown History mcg/actuation HFA aerosol inhaler (Flovent HFA) hydroxyzine HCl 25 mg tablet 1 tab PO Q8H PRN anxiety 09/23/21 09/23/21 Unknown History omeprazole 20 mg capsule,delayed 1 cap PO DAILY 09/23/21 09/23/21 Unknown History release gabapentin 300 mg capsule cap 02/12/22 Unknown History Physical Exam Vital Signs and Narrative: Vital Signs: Last Vital Signs Pulse 80 02/12/22 14:20 Resp 18 02/12/22 14:20 BP 146/121 H 02/12/22 14:20 Pulse Ox 100 02/12/22 14:20 O2 Del Method 02/12/22 14:20 BMI result Body Mass Index 38.7 General: in pain HEENT: atraumatic Neck: normal to visual inspection CVS: S1, S2, RRR Resp: CTA bilateral Chest: non tender GI: soft, epigastric tenderness, non distended : no CVA tenderness Skin: no rashes Extremities: no edema Neuro: Oriented X3, grossly intact Psych: cooperative Results Labs CBC and Chem 7: 02/12/22 14:27 02/12/22 14:27 Labs: Laboratory Results - last 24 hr 02/12/22 02/12/22 14:27 14:27 MCV 96.9 MCH 31.9 MCHC 32.9 RDW 13.7 Plt Count 279 MPV 10.0 Immature Gran % (Auto) 0.4 Neut % (Auto) 86.5 H Lymph % (Auto) 7.9 L [place] % (Auto) 5.0 Eos % (Auto) 0.1 Baso % (Auto) 0.1 Lymph # (Auto) 1.2 [place] # (Auto) 0.8 Eos # (Auto) 0.0 Baso # (Auto) 0.0 Abs Immat Gran (auto) 0.06 H Absolute Neuts (auto) 13.2 H Absolute Nucleated RBC 0.000 Nucleated RBC % (auto) 0.0 Anion Gap 19 Estim Creat Clear Calc 66.7 Estimated GFR 45 Random Glucose 127 H Calcium 9.3 D Magnesium 1.7 Total Bilirubin 1.2 H Direct Bilirubin 0.5 AST 30 ALT 29 Alkaline Phosphatase 47 Total Protein 7.7 Albumin 4.2 Lipase 1583 H Imaging Radiologist's Impressions: Impressions Abdomen/Pelvis CT 02/12/22 16:17 IMPRESSION: Acute pancreatitis with peripancreatic inflammatory change and small amount of fluid. There is no drainable collection. 2.5 cm area of relative hypoenhancement in the tail of the pancreas. Fleischner guidelines were followed. Assessment and Plan (1) Acute alcoholic pancreatitis: Status: Acute Plan 46M presented with abdominal pain Acute pancreatitis due to alcohol NPO, IV fluids, IV opiates Check triglycerides No obvious withdrawal, monitor CIWA RANDY and CKD 2 Likely due to dehydration, IV fluids, monitor Hyperkalemia IV hydration, monitor Obesity Weight loss recommended Hypertension Amlodipine DVT prophylaxis with Lovenox Full code Patient with acute pancreatitis causing severe pain and inability to tolerate p.o. requiring IV aggressive hydration and pain medications, further complicated by acute kidney injury, hyperkalemia. risk factors include obesity, therefore, expected require at least 2 midnights in the hospital. Quality Stroke Does the patient have a stroke diagnosis?: No VTE Prior VTE?: No VTE Risk Level:: Medical - moderate - high VTE Device Contraindication: Treatment Not Indicated VTE Drug Contraindication: N/A - Med Ordered
[2022-02-12] MEDS: Lactated Ringers 1,000 ML 150 ML IVCONT (17:00)
[2022-02-12 17:13] VITALS: BP 176/120; PULSE 85; RESP 17; O2SAT 99
[2022-02-12 17:13] LABS: Triglycerides 338 mg/dL
--- NOTE | 2022-02-12 17:21 | PHA.MEDREC ---
Pharmacy Consult ? Medication Reconciliation Pharmacy has completed the medication reconciliation. Patient admits poor adherence to medications taking every 3-4 days. Provided med list by spouse from PCP office. Thanks Gurpreet
[2022-02-12] MEDS: Enoxaparin Sodium 40 MG/0.4 ML SYRINGE SUBCUT (18:21)
[2022-02-12] MEDS: hydrOXYzine HCL 25 MG TABLET PO (18:21)
[2022-02-12 18:24] LABS: Anion Gap 17 (12-20); Blood Urea Nitrogen 11 mg/dL (9-16); Calcium 8.4 mg/dL (8.4-10.2); Carbon Dioxide 24 mmol/L (22-29); Chloride 101 mmol/L (96-108); Creatinine Clr Calc Pharmacy 80.7; Estimated Glomerular Filt Rate 56; Glucose Random 142 mg/dL (60-115); Potassium 5.2 mmol/L (3.3-5.1); Sodium 137 mmol/L (135-145)
[2022-02-12 18:49] LABS: Lipase 1529 U/L (8-78)
[2022-02-12 20:23] VITALS: BP 195/117; PULSE 89; RESP 17; O2SAT 98
[2022-02-12] MEDS: Gabapentin 300 MG CAPSULE PO (21:07)
[2022-02-12] MEDS: Atorvastatin Calcium 80 MG TABLET PO (21:07)
[2022-02-12 22:07] LABS: COVID-19 Test Negative (Negative)
[2022-02-13] VITALS (9 sets, daily range): BP systolic 140–179; BP diastolic 76–110; PULSE 83–114; RESP 13–19; TEMP 36.8–38.3; O2SAT 94–98
[2022-02-13] MEDS: Lactated Ringers 1,000 ML 150 ML IVCONT ×4 (00:58→22:04)
[2022-02-13] MEDS: HYDROmorphone HCl 1 MG/ML SYRINGE IVPUSH ×10 (01:42→22:08)
[2022-02-13] MEDS: Omeprazole 20 MG CAPSULE.DR PO (06:01)
[2022-02-13 07:06] LABS: Hemoglobin 17.7 g/dl (14.0-18.0); Mean Corpuscular HGB Conc 33.4 g/dl (31.0-36.0); Mean Corpuscular Hemoglobin 32.1 pg (27.0-33.0); Mean Corpuscular Volume 96.2 fL (80.0-98.0); Mean Platelet Volume 11.1 fL (9.4-12.4); Platelet Count 228 X10*3/uL (160-400); Red Blood Count 5.51 X10*6/uL (4.60-5.80); Red Cell Distribution Width 13.7 % (11.0-16.0); White Blood Count 21.8 X10*3/uL (4.8-10.8)
[2022-02-13 07:25] LABS: Anion Gap 17 (12-20); Blood Urea Nitrogen 12 mg/dL (9-16); Calcium 8.6 mg/dL (8.4-10.2); Carbon Dioxide 24 mmol/L (22-29); Chloride 96 mmol/L (96-108); Creatinine Clr Calc Pharmacy 86.4; Estimated Glomerular Filt Rate > 60; Glucose Fasting 109 mg/dL (60-99); Magnesium 1.6 mg/dL (1.6-2.6); Potassium 4.3 mmol/L (3.3-5.1); Sodium 133 mmol/L (135-145)
[2022-02-13] MEDS: Gabapentin 300 MG CAPSULE PO ×2 (08:09→19:53)
[2022-02-13] MEDS: Folic Acid 1 MG TABLET PO (08:09)
[2022-02-13] MEDS: amLODIPine Besylate 10 MG TABLET PO (08:09)
[2022-02-13] MEDS: Cyanocobalamin (Vitamin B-12) 1,000 MCG TABLET 1000 MCG PO (08:09)
--- NOTE | 2022-02-13 10:36 | PC.NURSE ---
pt asking to speak w , sts he is doing so much worse, his urine is darker and his abd is swollen he looks 8 months he did not look this way yesterday . pt reports pain, sts he is due for his pain medication. not in apparent distress, abd firm to palp, bs auscultated in all four quads. dr recinos notified of pt and familys concerns. wctm.
--- NOTE | 2022-02-13 11:44 | P.PNIM_ITS ---
Subjective Subjective Date of Service: 02/13/22 Interval History: cc: abd pain interval history:still with pain, no better, no worse, no appetite Cardiovascular Cardiovascular: Reports no additional cardiovascular complaints Respiratory Respiratory: Reports no additional respiratory complaints Physical Exam Vital Signs: Vital Signs: Last Vital Signs Temp 98.3 F 02/13/22 10:17 Pulse 105 H 02/13/22 10:17 Resp 14 02/13/22 10:17 BP 140/93 H 02/13/22 10:17 Pulse Ox 97 02/13/22 10:17 O2 Del Method 02/13/22 10:17 BMI result Body Mass Index 38.7 General: AO X 3, in pain Resp: CTA bilateral, no accessory muscles used CVS: S1,S2,RRR GI: soft, tender, non distended Neuro: motor grossly intact, alert Psych: appropriate affect, appropriate insight Objective Data Active Medications Albuterol Sulfate (Albuterol Sulfate 90 Mcg 8 Gm Inhaler) 2 puff INHALE RQ4H PRN PRN Reason: sob Amlodipine Besylate (Amlodipine Besylate 10 Mg Tablet) 10 mg PO DAILY [facility]; Protocol Last Admin: 02/13/22 08:09 Dose: 10 mg Documented By: JACY Atorvastatin Calcium (Atorvastatin Calcium 80 Mg Tablet) 80 mg PO BEDTIME [facility] Last Admin: 02/12/22 21:07 Dose: 80 mg Documented By: TATYANA Cyanocobalamin (Cyanocobalamin (Vitamin B-12) 1,000 Mcg Tablet) 1,000 mcg PO DAILY [facility] Last Admin: 02/13/22 08:09 Dose: 1,000 mcg Documented By: JACY Enoxaparin Sodium (Enoxaparin Sodium 40 Mg/0.4 Ml Syringe) 40 mg SUBCUT Q24H [facility] Last Admin: 02/12/22 18:21 Dose: 40 mg Documented By: LUISA Fluticasone Propionate (Fluticasone Propionate 100 Mcg Blst.W.Dev) 1 puff INHALE RBID [facility] Last Admin: 02/13/22 07:56 Dose: Not Given Documented By: MARISELA Non-Admin Reason: Med Not Available Folic Acid (Folic Acid 1 Mg Tablet) 1 mg PO DAILY [facility] Last Admin: 02/13/22 08:09 Dose: 1 mg Documented By: JACY Gabapentin (Gabapentin 300 Mg Capsule) 300 mg PO BID [facility] Last Admin: 02/13/22 08:09 Dose: 300 mg Documented By: JACY Hydromorphone HCl (Hydromorphone Hcl 1 Mg/Ml Syringe) 1 mg IVPUSH Q2H PRN; Protocol PRN Reason: moderate pain Last Admin: 02/13/22 10:11 Dose: 1 mg Documented By: RUDOLPH Hydroxyzine HCl (Hydroxyzine Hcl 25 Mg Tablet) 25 mg PO Q8H PRN PRN Reason: anxiety Last Admin: 02/12/22 18:21 Dose: 25 mg Documented By: LUISA Lactated Ringer's (Lr) 1,000 mls @ 150 mls/hr IVCONT .Q6H40M [facility] Last Infusion: 02/13/22 07:34 Dose: 0 mls/hr Documented By: JACY Omeprazole (Omeprazole 20 Mg Capsule.Dr) 20 mg PO DAILY@0630 [facility] Last Admin: 02/13/22 06:01 Dose: 20 mg Documented By: TATYANA Pharmacy Consult (Consult Rx Perform Med Rec) 1 each MISCELLANE ONCE PRN PRN Reason: Consult order Sodium Chloride (0.9 % Sodium Chloride Flush 3 Ml Syringe) 3 ml IVFLUSH QSHIFT [facility] Last Admin: 02/13/22 07:05 Dose: Not Given Documented By: JACY Non-Admin Reason: Med Not Available Labs CBC & Chem 7: 02/13/22 06:30 02/13/22 06:30 Labs: Laboratory Results - last 24 hr 02/12/22 02/12/22 02/12/22 14:27 14:27 16:56 MCV 96.9 MCH 31.9 MCHC 32.9 RDW 13.7 Plt Count 279 MPV 10.0 Immature Gran % (Auto) 0.4 Neut % (Auto) 86.5 H Lymph % (Auto) 7.9 L [place] % (Auto) 5.0 Eos % (Auto) 0.1 Baso % (Auto) 0.1 Lymph # (Auto) 1.2 [place] # (Auto) 0.8 Eos # (Auto) 0.0 Baso # (Auto) 0.0 Abs Immat Gran (auto) 0.06 H Absolute Neuts (auto) 13.2 H Absolute Nucleated RBC 0.000 Nucleated RBC % (auto) 0.0 Anion Gap 19 Estim Creat Clear Calc 66.7 Estimated GFR 45 Random Glucose 127 H Fasting Glucose Calcium 9.3 D Magnesium 1.7 Total Bilirubin 1.2 H Direct Bilirubin 0.5 AST 30 ALT 29 Alkaline Phosphatase 47 Total Protein 7.7 Albumin 4.2 Triglycerides 338 Lipase 1583 H COVID-19 (RODRIGUEZ) Negative COVID-19 Clin Com See Note 02/12/22 02/13/22 02/13/22 17:34 06:30 06:30 MCV 96.2 MCH 32.1 MCHC 33.4 RDW 13.7 Plt Count 228 MPV 11.1 Immature Gran % (Auto) Neut % (Auto) Lymph % (Auto) [place] % (Auto) Eos % (Auto) Baso % (Auto) Lymph # (Auto) [place] # (Auto) Eos # (Auto) Baso # (Auto) Abs Immat Gran (auto) Absolute Neuts (auto) Absolute Nucleated RBC 0.000 Nucleated RBC % (auto) 0.0 Anion Gap 17 17 Estim Creat Clear Calc 80.7 86.4 Estimated GFR 56 > 60 Random Glucose 142 H Fasting Glucose 109 H Calcium 8.4 D 8.6 Magnesium 1.6 Total Bilirubin Direct Bilirubin AST ALT Alkaline Phosphatase Total Protein Albumin Triglycerides Lipase 1529 H COVID-19 (RODRIGUEZ) COVID-19 Clin Com Assessment and Plan (1) Acute alcoholic pancreatitis: Status: Acute Plan 46M presented with abdominal pain Acute pancreatitis due to alcohol no significant change in symptoms, increasing leukocytosis continue NPO, IV fluids, IV opiates triglycerides - 338 No obvious withdrawal, monitor CIWA RANDY and CKD 2 Likely due to dehydration, resolved Hyperkalemia resolved Obesity Weight loss recommended Hypertension Amlodipine DVT prophylaxis with Lovenox full code reason for continued hospitalization:ongiong severe pain requiring iv hydratoin and iv pain meds, not tolerating po Quality Stroke Does the patient have a stroke diagnosis?: No VTE Prior VTE?: No VTE Risk Level:: Medical - moderate - high VTE Device Contraindication: Treatment Not Indicated VTE Drug Contraindication: N/A - Med Ordered
[2022-02-13] MEDS: ondansetron HCL 4 MG/2 ML VIAL IVPUSH (16:00)
[2022-02-13] MEDS: Enoxaparin Sodium 40 MG/0.4 ML SYRINGE SUBCUT (16:01)
[2022-02-13] MEDS: 0.9 % Sodium Chloride Flush 3 ML SYRINGE IVFLUSH ×2 (16:02→19:54)
[2022-02-13] MEDS: Atorvastatin Calcium 80 MG TABLET PO (19:54)
[2022-02-14] VITALS (8 sets, daily range): BP systolic 125–156; BP diastolic 65–89; PULSE 78–124; RESP 14–20; TEMP 37.1–37.7; O2SAT 92–95
[2022-02-14] MEDS: HYDROmorphone HCl 1 MG/ML SYRINGE IVPUSH ×4 (00:27→07:24)
[2022-02-14] MEDS: Lactated Ringers 1,000 ML 150 ML IVCONT ×3 (05:00→23:01)
[2022-02-14] MEDS: Omeprazole 20 MG CAPSULE.DR PO (06:02)
[2022-02-14 06:49] LABS: Hematocrit 47.1 % (42.0-52.0); Hemoglobin 15.5 g/dl (14.0-18.0); Mean Corpuscular HGB Conc 32.9 g/dl (31.0-36.0); Mean Corpuscular Volume 97.3 fL (80.0-98.0); Mean Platelet Volume 10.6 fL (9.4-12.4); Platelet Count 207 X10*3/uL (160-400); Red Blood Count 4.84 X10*6/uL (4.60-5.80); White Blood Count 24.9 X10*3/uL (4.8-10.8)
[2022-02-14] MEDS: 0.9 % Sodium Chloride Flush 3 ML SYRINGE IVFLUSH ×2 (07:24→16:09)
[2022-02-14 07:37] LABS: Anion Gap 18 (12-20); Blood Urea Nitrogen 14 mg/dL (9-16); Calcium 8.1 mg/dL (8.4-10.2); Carbon Dioxide 23 mmol/L (22-29); Chloride 97 mmol/L (96-108); Creatinine Clr Calc Pharmacy 71.4; Estimated Glomerular Filt Rate 48; Glucose Fasting 103 mg/dL (60-99); Potassium 4.3 mmol/L (3.3-5.1); Sodium 134 mmol/L (135-145)
[2022-02-14] MEDS: Fluticasone Propionate 100 MCG BLST.W.DEV 1 PUFF INHALE ×2 (08:03→19:58)
[2022-02-14] MEDS: Cyanocobalamin (Vitamin B-12) 1,000 MCG TABLET 1000 MCG PO (08:16)
[2022-02-14] MEDS: Folic Acid 1 MG TABLET PO (08:16)
[2022-02-14] MEDS: Gabapentin 300 MG CAPSULE PO ×2 (08:16→20:43)
[2022-02-14] MEDS: amLODIPine Besylate 10 MG TABLET PO (08:16)
[2022-02-14] MEDS: ondansetron HCL 4 MG/2 ML VIAL IVPUSH (08:16)
--- NOTE | 2022-02-14 08:38 | MHC.CM.PN ---
No IMM required Patient reports he lives with his girlfriend, Maggie, who will transport him home. Patient is employed, independent at home and community, No DME or home services, his PCP is Kervin Foss, is Halima castro'yuri x1 ([facility]). No HCP in place, patient was educated about HCP but declined to complete at this time. He reports he has not participated in any OUD or AUD treatment. D/C Plan: Home (self-care) vs possible Care team interventions
[2022-02-14] MEDS: HYDROmorphone HCl 1 MG/ML SYRINGE 1.5 MG IVPUSH ×7 (09:13→23:02)
[2022-02-14] MEDS: Piperacillin Sodium/Tazobactam 3.375 GM in 0.9 % Sodium Chloride 50 ML IV ×3 (09:18→19:35)
--- NOTE | 2022-02-14 09:57 | HO.PM.IMPN ---
Subjective Subjective Date of Service: 02/14/22 Interval History: cc: abd pain interval history:still with pain, no better, no worse, no appetite, having fevers Cardiovascular Cardiovascular: Reports no additional cardiovascular complaints Respiratory Respiratory: Reports no additional respiratory complaints Physical Exam Vital Signs: Vital Signs: Last Vital Signs Temp 99.5 F 02/14/22 07:25 Pulse 124 H 02/14/22 08:03 Resp 20 02/14/22 08:03 BP 129/76 02/14/22 07:25 Pulse Ox 93 02/14/22 07:25 O2 Del Method 02/14/22 07:25 BMI result Body Mass Index 38.7 General: AO X 3, in pain Resp: CTA bilateral, no accessory muscles used CVS: S1,S2,RRR GI: soft, tender, non distended Neuro: motor grossly intact, alert Psych: appropriate affect, appropriate insight Objective Data Active Medications Albuterol Sulfate (Albuterol Sulfate 90 Mcg 8 Gm Inhaler) 2 puff INHALE RQ4H PRN PRN Reason: sob Amlodipine Besylate (Amlodipine Besylate 10 Mg Tablet) 10 mg PO DAILY [facility]; Protocol Last Admin: 02/14/22 08:16 Dose: 10 mg Documented By: JULIOCESAR Atorvastatin Calcium (Atorvastatin Calcium 80 Mg Tablet) 80 mg PO BEDTIME [facility] Last Admin: 02/13/22 19:54 Dose: 80 mg Documented By: FOREIGN Cyanocobalamin (Cyanocobalamin (Vitamin B-12) 1,000 Mcg Tablet) 1,000 mcg PO DAILY [facility] Last Admin: 02/14/22 08:16 Dose: 1,000 mcg Documented By: JULIOCESAR Enoxaparin Sodium (Enoxaparin Sodium 40 Mg/0.4 Ml Syringe) 40 mg SUBCUT Q24H [facility] Last Admin: 02/13/22 16:01 Dose: 40 mg Documented By: PAT Fluticasone Propionate (Fluticasone Propionate 100 Mcg Blst.W.Dev) 1 puff INHALE RBID [facility] Last Admin: 02/14/22 08:03 Dose: 1 puff Documented By: MIKO Folic Acid (Folic Acid 1 Mg Tablet) 1 mg PO DAILY [facility] Last Admin: 02/14/22 08:16 Dose: 1 mg Documented By: JULIOCESAR Gabapentin (Gabapentin 300 Mg Capsule) 300 mg PO BID [facility] Last Admin: 02/14/22 08:16 Dose: 300 mg Documented By: JULIOCESAR Hydromorphone HCl (Hydromorphone Hcl 1 Mg/Ml Syringe) 1.5 mg IVPUSH Q2H PRN; Protocol PRN Reason: moderate pain Last Admin: 02/14/22 09:13 Dose: 1.5 mg Documented By: JULIOCESAR Hydroxyzine HCl (Hydroxyzine Hcl 25 Mg Tablet) 25 mg PO Q8H PRN PRN Reason: anxiety Last Admin: 02/12/22 18:21 Dose: 25 mg Documented By: LUISA Lactated Ringer's (Lr) 1,000 mls @ 150 mls/hr IVCONT .Q6H40M [facility] Last Infusion: 02/14/22 09:25 Dose: 0 mls/hr Documented By: JULIOCESAR Piperacillin Sod/Tazobactam (Sod 3.375 gm/ Sodium Chloride) 50 mls @ 100 mls/hr IV Q6H [facility] Last Admin: 02/14/22 09:18 Dose: 100 mls/hr Documented By: JULIOCESAR Omeprazole (Omeprazole 20 Mg Capsule.Dr) 20 mg PO DAILY@0630 [facility] Last Admin: 02/14/22 06:02 Dose: 20 mg Documented By: FOREIGN Ondansetron HCl (Ondansetron Hcl 4 Mg/2 Ml Vial) 4 mg IVPUSH Q8H PRN PRN Reason: nausea Last Admin: 02/14/22 08:16 Dose: 4 mg Documented By: JULIOCESAR Pharmacy Consult (Consult Rx Perform Med Rec) 1 each MISCELLANE ONCE PRN PRN Reason: Consult order Sodium Chloride (0.9 % Sodium Chloride Flush 3 Ml Syringe) 3 ml IVFLUSH QSHIFT [facility] Last Admin: 02/14/22 07:24 Dose: 3 ml Documented By: JULIOCESAR Labs CBC & Chem 7: 02/14/22 06:38 02/14/22 06:38 Labs: Laboratory Results - last 24 hr 02/14/22 02/14/22 02/14/22 06:38 06:38 08:33 MCV 97.3 MCH 32.0 MCHC 32.9 RDW 14.0 Plt Count 207 MPV 10.6 Absolute Nucleated RBC 0.000 Nucleated RBC % (auto) 0.0 Anion Gap 18 Estim Creat Clear Calc 71.4 Estimated GFR 48 Fasting Glucose 103 H Lactic Acid 1.0 Calcium 8.1 L Assessment and Plan (1) Acute alcoholic pancreatitis: Status: Acute Plan 46M presented with abdominal pain Acute pancreatitis due to alcohol complicated by SIRS continue NPO, IV fluids, IV opiates - increased triglycerides - 338 No obvious withdrawal, monitor CIWA check cultures will give empiric zosyn RANDY and CKD 2 Likely due to dehydration, resolved Hyperkalemia resolved Obesity Weight loss recommended Hypertension Amlodipine DVT prophylaxis with Lovenox full code reason for continued hospitalization:ongiong severe pain requiring iv hydratoin and iv pain meds, not tolerating po Quality Stroke Does the patient have a stroke diagnosis?: No VTE Prior VTE?: No VTE Risk Level:: Medical - moderate - high VTE Device Contraindication: Treatment Not Indicated VTE Drug Contraindication: N/A - Med Ordered
[2022-02-14] MEDS: Albuterol Sulfate 90 MCG 8 GM INHALER 2 PUFF INHALE (16:02)
[2022-02-14] MEDS: Enoxaparin Sodium 40 MG/0.4 ML SYRINGE SUBCUT (16:08)
[2022-02-14] MEDS: Atorvastatin Calcium 80 MG TABLET PO (20:43)
[2022-02-15] VITALS (9 sets, daily range): BP systolic 129–142; BP diastolic 62–77; PULSE 86–102; RESP 16–20; TEMP 36.6–37.4; O2SAT 93–99
[2022-02-15] MEDS: HYDROmorphone HCl 1 MG/ML SYRINGE 1.5 MG IVPUSH ×10 (01:17→21:57)
[2022-02-15] MEDS: Piperacillin Sodium/Tazobactam 3.375 GM in 0.9 % Sodium Chloride 50 ML IV ×4 (01:24→19:50)
[2022-02-15] MEDS: Lactated Ringers 1,000 ML 150 ML IVCONT ×2 (03:57→10:21)
[2022-02-15] MEDS: Omeprazole 20 MG CAPSULE.DR PO (05:54)
[2022-02-15 06:25] LABS: Hemoglobin 12.7 g/dl (14.0-18.0); Mean Corpuscular HGB Conc 32.6 g/dl (31.0-36.0); Mean Corpuscular Hemoglobin 31.8 pg (27.0-33.0); Mean Corpuscular Volume 97.7 fL (80.0-98.0); Mean Platelet Volume 10.9 fL (9.4-12.4); Platelet Count 172 X10*3/uL (160-400); Red Blood Count 3.99 X10*6/uL (4.60-5.80); White Blood Count 16.8 X10*3/uL (4.8-10.8)
[2022-02-15 06:38] LABS: Anion Gap 15 (12-20); Blood Urea Nitrogen 13 mg/dL (9-16); Calcium 7.6 mg/dL (8.4-10.2); Carbon Dioxide 26 mmol/L (22-29); Chloride 98 mmol/L (96-108); Creatinine Clr Calc Pharmacy 74.3; Estimated Glomerular Filt Rate 51; Glucose Fasting 89 mg/dL (60-99); Sodium 135 mmol/L (135-145)
[2022-02-15] MEDS: Fluticasone Propionate 100 MCG BLST.W.DEV 1 PUFF INHALE ×2 (07:37→19:44)
[2022-02-15] MEDS: ondansetron HCL 4 MG/2 ML VIAL IVPUSH (08:14)
[2022-02-15] MEDS: Cyanocobalamin (Vitamin B-12) 1,000 MCG TABLET 1000 MCG PO (08:15)
[2022-02-15] MEDS: Gabapentin 300 MG CAPSULE PO ×2 (08:15→19:51)
[2022-02-15] MEDS: amLODIPine Besylate 10 MG TABLET PO (08:15)
[2022-02-15] MEDS: Folic Acid 1 MG TABLET PO (08:15)
--- NOTE | 2022-02-15 09:38 | HO.PM.IMPN ---
Subjective Subjective Date of Service: 02/15/22 Interval History: cc: abd pain interval history:some improvement today, still no appetite Cardiovascular Cardiovascular: Reports no additional cardiovascular complaints Respiratory Respiratory: Reports no additional respiratory complaints Physical Exam Vital Signs: Vital Signs: Last Vital Signs Temp 99.3 F 02/15/22 07:29 Pulse 99 02/15/22 07:40 Resp 16 02/15/22 07:40 BP 129/65 02/15/22 07:29 Pulse Ox 93 02/15/22 07:29 O2 Del Method 02/15/22 07:29 BMI result Body Mass Index 38.7 General: AO X 3, in less discomfort Resp: CTA bilateral, no accessory muscles used CVS: S1,S2,RRR GI: soft, tender, non distended Neuro: motor grossly intact, alert Psych: appropriate affect, appropriate insight Objective Data Active Medications Albuterol Sulfate (Albuterol Sulfate 90 Mcg 8 Gm Inhaler) 2 puff INHALE RQ4H PRN PRN Reason: sob Last Admin: 02/14/22 16:02 Dose: 2 puff Documented By: JULIOCESAR Amlodipine Besylate (Amlodipine Besylate 10 Mg Tablet) 10 mg PO DAILY [facility]; Protocol Last Admin: 02/15/22 08:15 Dose: 10 mg Documented By: AKI Atorvastatin Calcium (Atorvastatin Calcium 80 Mg Tablet) 80 mg PO BEDTIME [facility] Last Admin: 02/14/22 20:43 Dose: 80 mg Documented By: MING Cyanocobalamin (Cyanocobalamin (Vitamin B-12) 1,000 Mcg Tablet) 1,000 mcg PO DAILY [facility] Last Admin: 02/15/22 08:15 Dose: 1,000 mcg Documented By: AKI Enoxaparin Sodium (Enoxaparin Sodium 40 Mg/0.4 Ml Syringe) 40 mg SUBCUT Q24H [facility] Last Admin: 02/14/22 16:08 Dose: 40 mg Documented By: JULIOCESAR Fluticasone Propionate (Fluticasone Propionate 100 Mcg Blst.W.Dev) 1 puff INHALE RBID [facility] Last Admin: 02/15/22 07:37 Dose: 1 puff Documented By: JANESSA Folic Acid (Folic Acid 1 Mg Tablet) 1 mg PO DAILY [facility] Last Admin: 02/15/22 08:15 Dose: 1 mg Documented By: AKI Gabapentin (Gabapentin 300 Mg Capsule) 300 mg PO BID [facility] Last Admin: 02/15/22 08:15 Dose: 300 mg Documented By: AKI Hydromorphone HCl (Hydromorphone Hcl 1 Mg/Ml Syringe) 1.5 mg IVPUSH Q2H PRN; Protocol PRN Reason: moderate pain Last Admin: 02/15/22 08:15 Dose: 1.5 mg Documented By: AKI Hydroxyzine HCl (Hydroxyzine Hcl 25 Mg Tablet) 25 mg PO Q8H PRN PRN Reason: anxiety Last Admin: 02/12/22 18:21 Dose: 25 mg Documented By: LUISA Lactated Ringer's (Lr) 1,000 mls @ 150 mls/hr IVCONT .Q6H40M [facility] Last Admin: 02/15/22 03:57 Dose: 150 mls/hr Documented By: PAT Piperacillin Sod/Tazobactam (Sod 3.375 gm/ Sodium Chloride) 50 mls @ 100 mls/hr IV Q6H [facility] Last Infusion: 02/15/22 08:46 Dose: 0 mls/hr Documented By: AKI Omeprazole (Omeprazole 20 Mg Capsule.Dr) 20 mg PO DAILY@0630 [facility] Last Admin: 02/15/22 05:54 Dose: 20 mg Documented By: PAT Ondansetron HCl (Ondansetron Hcl 4 Mg/2 Ml Vial) 4 mg IVPUSH Q8H PRN PRN Reason: nausea Last Admin: 02/15/22 08:14 Dose: 4 mg Documented By: AKI Pharmacy Consult (Consult Rx Perform Med Rec) 1 each MISCELLANE ONCE PRN PRN Reason: Consult order Sodium Chloride (0.9 % Sodium Chloride Flush 3 Ml Syringe) 3 ml IVFLUSH QSHIFT [facility] Last Admin: 02/15/22 08:15 Dose: Not Given Documented By: AKI Non-Admin Reason: IV Running Labs CBC & Chem 7: 02/15/22 05:52 02/15/22 05:52 Labs: Laboratory Results - last 24 hr 02/15/22 02/15/22 05:52 05:52 MCV 97.7 MCH 31.8 MCHC 32.6 RDW 14.0 Plt Count 172 MPV 10.9 Absolute Nucleated RBC 0.000 Nucleated RBC % (auto) 0.0 Anion Gap 15 Estim Creat Clear Calc 74.3 Estimated GFR 51 Fasting Glucose 89 Calcium 7.6 L D Assessment and Plan (1) Acute alcoholic pancreatitis: Status: Acute Plan 46M presented with abdominal pain Acute pancreatitis due to alcohol complicated by SIRS continue NPO, IV fluids, IV opiates triglycerides - 338 No obvious withdrawal, monitor CIWA follow up cultures continue empiric zosyn RANDY and CKD 2 Likely due to dehydration, resolved Hyperkalemia resolved Obesity Weight loss recommended Hypertension Amlodipine DVT prophylaxis with Lovenox full code reason for continued hospitalization:ongiong severe pain requiring iv hydration and iv pain meds, not tolerating po Quality Stroke Does the patient have a stroke diagnosis?: No VTE Prior VTE?: No VTE Risk Level:: Medical - moderate - high VTE Device Contraindication: Treatment Not Indicated VTE Drug Contraindication: N/A - Med Ordered
[2022-02-15] MEDS: Enoxaparin Sodium 40 MG/0.4 ML SYRINGE SUBCUT (17:04)
[2022-02-15] MEDS: 0.9 % Sodium Chloride Flush 3 ML SYRINGE IVFLUSH ×2 (17:04→19:51)
[2022-02-15] MEDS: Atorvastatin Calcium 80 MG TABLET PO (19:51)
[2022-02-16] VITALS (10 sets, daily range): BP systolic 119–142; BP diastolic 55–94; PULSE 86–149; RESP 15–20; TEMP 36.6–37.4; O2SAT 93–98
[2022-02-16] MEDS: HYDROmorphone HCl 1 MG/ML SYRINGE 1.5 MG IVPUSH ×9 (00:12→23:48)
[2022-02-16] MEDS: Piperacillin Sodium/Tazobactam 3.375 GM in 0.9 % Sodium Chloride 50 ML IV ×4 (02:30→20:33)
[2022-02-16] MEDS: Lactated Ringers 1,000 ML 150 ML IVCONT ×2 (06:11→14:38)
[2022-02-16] MEDS: ondansetron HCL 4 MG/2 ML VIAL IVPUSH ×3 (06:30→21:28)
[2022-02-16 06:51] LABS: Hematocrit 39.2 % (42.0-52.0); Hemoglobin 12.7 g/dl (14.0-18.0); Mean Corpuscular HGB Conc 32.4 g/dl (31.0-36.0); Mean Corpuscular Hemoglobin 32.1 pg (27.0-33.0); Platelet Count 228 X10*3/uL (160-400); Red Blood Count 3.96 X10*6/uL (4.60-5.80); Red Cell Distribution Width 13.9 % (11.0-16.0); White Blood Count 13.2 X10*3/uL (4.8-10.8)
[2022-02-16 07:24] LABS: Alanine Aminotransferase 23 U/L (0-40); Albumin Level 3.3 g/dL (3.5-5.0); Alkaline Phosphatase 46 U/L (39-117); Anion Gap 15 (12-20); Aspartate Amino Transferase 41 U/L (5-37); Bilirubin Direct 0.4 mg/dL (0.0-0.5); Bilirubin Total 0.6 mg/dL (0.0-1.0); Blood Urea Nitrogen 8 mg/dL (9-16); Carbon Dioxide 26 mmol/L (22-29); Chloride 99 mmol/L (96-108); Creatinine Clr Calc Pharmacy 70.9; Estimated Glomerular Filt Rate 48; Glucose Fasting 79 mg/dL (60-99); Magnesium 2.3 mg/dL (1.6-2.6); Potassium 3.8 mmol/L (3.3-5.1); Sodium 136 mmol/L (135-145); Total Protein 6.1 g/dL (6.5-8.0)
[2022-02-16] MEDS: Fluticasone Propionate 100 MCG BLST.W.DEV 1 PUFF INHALE ×2 (08:24→18:57)
[2022-02-16] MEDS: Gabapentin 300 MG CAPSULE PO ×2 (09:15→20:33)
[2022-02-16] MEDS: Cyanocobalamin (Vitamin B-12) 1,000 MCG TABLET 1000 MCG PO (09:15)
[2022-02-16] MEDS: 0.9 % Sodium Chloride Flush 3 ML SYRINGE IVFLUSH ×3 (09:15→23:55)
[2022-02-16] MEDS: amLODIPine Besylate 10 MG TABLET PO (09:15)
[2022-02-16] MEDS: Folic Acid 1 MG TABLET PO (09:15)
[2022-02-16] MEDS: Albuterol Sulfate 90 MCG 8 GM INHALER 2 PUFF INHALE ×2 (10:18→21:28)
--- NOTE | 2022-02-16 11:23 | MHC.CM.PN ---
Per ROUNDS discussion, Patient is not yet medically cleared for dc (pain is worse and Patient is not eating); home is the goal and CM will continue to follow.
--- NOTE | 2022-02-16 11:41 | P.PNIM_ITS ---
Subjective Subjective Date of Service: 02/16/22 Interval History: cc: abd pain interval history:worse pain today. Cardiovascular Cardiovascular: Reports no additional cardiovascular complaints Respiratory Respiratory: Reports no additional respiratory complaints Physical Exam Vital Signs: Vital Signs: Last Vital Signs Temp 97.8 F 02/16/22 11:30 Pulse 86 02/16/22 11:30 Resp 20 02/16/22 11:30 BP 120/65 02/16/22 11:30 Pulse Ox 93 02/16/22 11:30 O2 Del Method 02/16/22 11:30 O2 Flow Rate 1 02/16/22 07:45 BMI result Body Mass Index 38.7 General: AO X 3, in pain Resp: CTA bilateral, no accessory muscles used CVS: S1,S2,RRR GI: soft, tender, non distended Neuro: motor grossly intact, alert Psych: appropriate affect, appropriate insight Objective Data Active Medications Albuterol Sulfate (Albuterol Sulfate 90 Mcg 8 Gm Inhaler) 2 puff INHALE RQ4H PRN PRN Reason: sob Last Admin: 02/16/22 10:18 Dose: 2 puff Documented By: TIFFANY Amlodipine Besylate (Amlodipine Besylate 10 Mg Tablet) 10 mg PO DAILY [facility]; Protocol Last Admin: 02/16/22 09:15 Dose: 10 mg Documented By: TIFFANY Atorvastatin Calcium (Atorvastatin Calcium 80 Mg Tablet) 80 mg PO BEDTIME [facility] Last Admin: 02/15/22 19:51 Dose: 80 mg Documented By: MACO Cyanocobalamin (Cyanocobalamin (Vitamin B-12) 1,000 Mcg Tablet) 1,000 mcg PO D AILY [facility] Last Admin: 02/16/22 09:15 Dose: 1,000 mcg Documented By: TIFFANY Enoxaparin Sodium (Enoxaparin Sodium 40 Mg/0.4 Ml Syringe) 40 mg SUBCUT Q24H [facility] Last Admin: 02/15/22 17:04 Dose: 40 mg Documented By: AKI Fluticasone Propionate (Fluticasone Propionate 100 Mcg Blst.W.Dev) 1 puff INHALE RBID [facility] Last Admin: 02/16/22 08:24 Dose: 1 puff Documented By: MARISELA Folic Acid (Folic Acid 1 Mg Tablet) 1 mg PO DAILY [facility] Last Admin: 02/16/22 09:15 Dose: 1 mg Documented By: TIFFANY Gabapentin (Gabapentin 300 Mg Capsule) 300 mg PO BID [facility] Last Admin: 02/16/22 09:15 Dose: 300 mg Documented By: TIFFANY Hydromorphone HCl (Hydromorphone Hcl 1 Mg/Ml Syringe) 1.5 mg IVPUSH Q2H PRN; Protocol PRN Reason: moderate pain Last Admin: 02/16/22 09:14 Dose: 1.5 mg Documented By: TIFFANY Hydroxyzine HCl (Hydroxyzine Hcl 25 Mg Tablet) 25 mg PO Q8H PRN PRN Reason: anxiety Last Admin: 02/12/22 18:21 Dose: 25 mg Documented By: LUISA Lactated Ringer's (Lr) 1,000 mls @ 150 mls/hr IVCONT .Q6H40M [facility] Last Admin: 02/16/22 06:11 Dose: 150 mls/hr Documented By: MACO Piperacillin Sod/Tazobactam (Sod 3.375 gm/ Sodium Chloride) 50 mls @ 100 mls/hr IV Q6H [facility] Last Infusion: 02/16/22 10:02 Dose: 0 mls/hr Documented By: TIFFANY Omeprazole (Omeprazole 20 Mg Capsule.Dr) 20 mg PO DAILY@0630 [facility] Last Admin: 02/16/22 06:08 Dose: Not Given Documented By: MACO Non-Admin Reason: Patient Refused Ondansetron HCl (Ondansetron Hcl 4 Mg/2 Ml Vial) 4 mg IVPUSH Q6H PRN PRN Reason: nausea Pharmacy Consult (Consult Rx Perform Med Rec) 1 each MISCELLANE ONCE PRN PRN Reason: Consult order Sodium Chloride (0.9 % Sodium Chloride Flush 3 Ml Syringe) 3 ml IVFLUSH QSHIFT [facility] Last Admin: 02/16/22 09:15 Dose: 3 ml Documented By: TIFFANY Labs CBC & Chem 7: 02/16/22 05:58 02/16/22 05:58 Labs: Laboratory Results - last 24 hr 02/16/22 02/16/22 05:58 05:58 MCV 99.0 H MCH 32.1 MCHC 32.4 RDW 13.9 Plt Count 228 D MPV 11.0 Absolute Nucleated RBC 0.000 Nucleated RBC % (auto) 0.0 Anion Gap 15 Estim Creat Clear Calc 70.9 Estimated GFR 48 Fasting Glucose 79 Calcium 8.0 L Magnesium 2.3 Total Bilirubin 0.6 Direct Bilirubin 0.4 AST 41 H ALT 23 Alkaline Phosphatase 46 Total Protein 6.1 L D Albumin 3.3 L D Microbiology Microbiology Results: Microbiology 02/14/22 08:33 Blood Culture - Preliminary Blood - Venous No growth after 48 hours. 02/14/22 08:43 Blood Culture - Preliminary Blood - Venous No growth after 48 hours. Assessment and Plan (1) Acute alcoholic pancreatitis: Status: Acute Plan 46M presented with abdominal pain Acute pancreatitis due to alcohol complicated by SIRS reporting worsening pain today continue NPO, IV fluids, IV opiates triglycerides - [address] abd No obvious withdrawal, monitor CIWA follow up cultures continue empiric zosyn RANDY and CKD 2 Likely due to dehydration, resolved Hyperkalemia resolved Obesity Weight loss recommended Hypertension Amlodipine DVT prophylaxis with Lovenox full code reason for continued hospitalization:ongiong severe pain requiring iv hydration and iv pain meds, not tolerating po Quality Stroke Does the patient have a stroke diagnosis?: No VTE Prior VTE?: No VTE Risk Level:: Medical - moderate - high VTE Device Contraindication: Treatment Not Indicated VTE Drug Contraindication: N/A - Med Ordered
--- NOTE | 2022-02-16 13:00 | PC.NURSE ---
Patient had 12 beat v[address]ach. Assympt[address]. Dr[address] Tinajero notified. Echo ordered.
[2022-02-16] MEDS: iohexoL 350 MG/ML 100 ML INFUS..BTL IV (13:09)
--- NOTE | 2022-02-16 14:15 | CA_ITS ---
Transthoracic Echocardiogram Patient (Last, First, Middle): Bernardino Pena, Gender: Male Date of : 1975 Age: 46 Procedure Date: 02/16/2022 Procedure Type: Transthoracic [place] [facility] [place]: 170.18 cm Weight: 112.04 kg BSA: 2.21 m2 Heart Rate: 89 bpm BP: 120 / 65 mmHg Napper Grinder: SB Referring MD: Augustine Tinajero MD Embossing Clerk: Keyon Delacruz MD Symptoms: NSVT Study Quality: Adequate w Contrast ECG Rhythm: Sinus Conclusions: - 1. Technically difficult study 2. Normal LV systolic and diastolic function 3. Normal cardiac valvular Dopplers Findings Procedure Information Contrast agent, definity, is being given per protocol without apparent complications. Left Ventricle Normal left ventricular size, thickness, and systolic function. The visually estimated ejection fraction is between 55-60%. Spectral Doppler is indicative of a normal filling pattern. Right Ventricle Normal right ventricular cavity size and systolic function. Atria The left atrium is normal in size. Interatrial shunt cannot be excluded. The right atrium is normal in size. Aortic Valve The aortic valve structure and function is likely normal. There is no aortic valve stenosis. There is no aortic valve regurgitation. Mitral Valve Normal mitral valve structure and function. There is trace mitral valve regurgitation. There is no mitral valve stenosis. Pulmonic Valve The pulmonic valve was not well visualized. Tricuspid Valve Likely normal tricuspid valve structure and function. Tricuspid regurgitation envelope is inadequate for calculation of right ventricular systolic pressure. Normal right atrial pressure. Great Vessels All visible segments of the aorta are normal in size. The pulmonary artery was not well visualized. Venous The inferior vena cava is normal in size and collapses greater than 50% with inspiration. Pericardium/Pleural The pericardium was not well visualized. Prior Study Comparison No prior study available for comparison. Measurements 2D Linear Measurements IVSd: 1.06 0.6-0.9/0.6-1.0 cm LVIDd: 5.60 3.9-5.3/4.2-5.9 cm LVIDd Index: 2.53 2.4-3.2/2.2-3.1 cm/m2 LVIDs: 4.26 2.0-3.6 cm LVPWd: 0.87 0.7-1.1 cm LA Diam: 3.90 2.7-3.8/3.0-4.0 cm LAIDs Index: 1.76 1.5-2.3 cm/m2 LV Mass: 260.69 67-162/88-224 g LV Mass Index: 117.96 43-95/49-115 g/m2 LVOT Diam: 2.00 3.0+(-)1.3 cm 2D Systolic Function EF 4C: 56.30 >55% EF 2C: 51.80 >55% Mitral Valve MV Pk E: 1.03 MV PK A: 0.65 MV Decel Time: 160.00 E/A: 1.60 E'Lateral: 9.46 E'Medial: 8.59 E/E' Med: 12.00 E/E' Lat: 10.90 PHT: 47.00 MVA PHT: 4.68 Decel Lagrange: 6.41 Aortic Valve AoV Pk Colt: 1.47 AoV Mn Colt: 0.97 AoV VTI: 0.23 AoV Pk Grad: 9.00 Aov Mn Grad: 4.00 LIONEL Cont.VTI: 2.86 LVOT LVOT Pk Colt: 1.31 LVOT Mn Colt: 0.85 LVOT VTI: 0.21 LVOT Pk Grad: 7.00 LVOT Mn Grad: 3.00 LVOT Diam: 2.00 LVOT Area: 3.14 Diastolic Function MV Pk E: 1.03 MV Pk A: 0.65 E/A: 1.60 E'Medial: 8.59 E/E' Med: 12.00 E' Laterial: 9.46 E/E' Lat: 10.90 Right Ventricle TAPSE (mm): 21.40 TVS' Colt: 17.40 Tricuspid Valve RA Press: 3.00 Great Vessels Aorta Sinus of Valsalva: 2.60 2.0-3.5 cm Ao Asc: 3.10 2.1-3.4 cm Pulmonary Valve PV Pk Colt: 1.14 Peak PV Grad: 5.00 Updated in Other Vendor System with Status of Final Keyon Delacruz MD electronically signed on 02/16/2022 4:17:14 PM with status of Final
[2022-02-16] MEDS: Enoxaparin Sodium 40 MG/0.4 ML SYRINGE SUBCUT (16:19)
[2022-02-16] MEDS: Atorvastatin Calcium 80 MG TABLET PO (20:33)
[2022-02-17] VITALS (8 sets, daily range): BP systolic 110–142; BP diastolic 58–82; PULSE 83–93; RESP 17–20; TEMP 36.2–36.9; O2SAT 94–99
[2022-02-17] MEDS: HYDROmorphone HCl 1 MG/ML SYRINGE 1.5 MG IVPUSH ×8 (02:29→20:39)
[2022-02-17] MEDS: Piperacillin Sodium/Tazobactam 3.375 GM in 0.9 % Sodium Chloride 50 ML IV ×4 (02:30→19:45)
[2022-02-17] MEDS: Lactated Ringers 1,000 ML 150 ML IVCONT ×4 (02:30→23:20)
[2022-02-17] MEDS: Omeprazole 20 MG CAPSULE.DR PO (06:07)
[2022-02-17] MEDS: ondansetron HCL 4 MG/2 ML VIAL IVPUSH (06:21)
[2022-02-17 07:45] LABS: Hematocrit 43.1 % (42.0-52.0); Hemoglobin 13.8 g/dl (14.0-18.0); Mean Corpuscular Hemoglobin 31.8 pg (27.0-33.0); Mean Corpuscular Volume 99.3 fL (80.0-98.0); Mean Platelet Volume 10.8 fL (9.4-12.4); Platelet Count 270 X10*3/uL (160-400); Red Blood Count 4.34 X10*6/uL (4.60-5.80); Red Cell Distribution Width 13.9 % (11.0-16.0); White Blood Count 10.5 X10*3/uL (4.8-10.8)
[2022-02-17 08:16] LABS: Anion Gap 18 (12-20); Blood Urea Nitrogen 6 mg/dL (9-16); Calcium 8.4 mg/dL (8.4-10.2); Carbon Dioxide 24 mmol/L (22-29); Chloride 99 mmol/L (96-108); Creatinine Clr Calc Pharmacy 83.8; Estimated Glomerular Filt Rate 58; Glucose Fasting 74 mg/dL (60-99); Magnesium 2.6 mg/dL (1.6-2.6); Sodium 137 mmol/L (135-145)
[2022-02-17] MEDS: Fluticasone Propionate 100 MCG BLST.W.DEV 1 PUFF INHALE ×2 (08:43→18:46)
[2022-02-17] MEDS: Folic Acid 1 MG TABLET PO (09:00)
[2022-02-17] MEDS: 0.9 % Sodium Chloride Flush 3 ML SYRINGE IVFLUSH ×3 (09:00→23:21)
[2022-02-17] MEDS: Cyanocobalamin (Vitamin B-12) 1,000 MCG TABLET 1000 MCG PO (09:01)
[2022-02-17] MEDS: Gabapentin 300 MG CAPSULE PO ×2 (09:01→19:45)
[2022-02-17] MEDS: amLODIPine Besylate 10 MG TABLET PO (09:01)
--- NOTE | 2022-02-17 10:24 | HO.PM.IMPN ---
Subjective Subjective Date of Service: 02/17/22 Interval History: cc: abd pain interval history:a bit better today, ready to start clears Cardiovascular Cardiovascular: Reports no additional cardiovascular complaints Respiratory Respiratory: Reports no additional respiratory complaints Physical Exam Vital Signs: Vital Signs: Last Vital Signs Temp 98.0 F 02/17/22 08:00 Pulse 92 02/17/22 08:45 Resp 18 02/17/22 08:45 BP 110/58 L 02/17/22 08:00 Pulse Ox 97 02/17/22 08:00 O2 Del Method 02/17/22 08:00 O2 Flow Rate 1 02/16/22 07:45 BMI result Body Mass Index 38.7 General: AO X 3, in less pain Resp: CTA bilateral, no accessory muscles used CVS: S1,S2,RRR GI: soft, tender, non distended Neuro: motor grossly intact, alert Psych: appropriate affect, appropriate insight Objective Data Active Medications Albuterol Sulfate (Albuterol Sulfate 90 Mcg 8 Gm Inhaler) 2 puff INHALE RQ4H PRN PRN Reason: sob Last Admin: 02/16/22 21:28 Dose: 2 puff Documented By: MING Amlodipine Besylate (Amlodipine Besylate 10 Mg Tablet) 10 mg PO DAILY [facility]; Protocol Last Admin: 02/17/22 09:01 Dose: 10 mg Documented By: AMBER Atorvastatin Calcium (Atorvastatin Calcium 80 Mg Tablet) 80 mg PO BEDTIME [facility] Last Admin: 02/16/22 20:33 Dose: 80 mg Documented By: MING Cyanocobalamin (Cyanocobalamin (Vitamin B-12) 1,000 Mcg Tablet) 1,000 mcg PO DAILY [facility] Last Admin: 02/17/22 09:01 Dose: 1,000 mcg Documented By: AMBER Enoxaparin Sodium (Enoxaparin Sodium 40 Mg/0.4 Ml Syringe) 40 mg SUBCUT Q24H [facility] Last Admin: 02/16/22 16:19 Dose: 40 mg Documented By: MING Fluticasone Propionate (Fluticasone Propionate 100 Mcg Blst.W.Dev) 1 puff INHALE RBID [facility] Last Admin: 02/17/22 08:43 Dose: 1 puff Documented By: MICHELINE Folic Acid (Folic Acid 1 Mg Tablet) 1 mg PO DAILY [facility] Last Admin: 02/17/22 09:00 Dose: 1 mg Documented By: AMBER Gabapentin (Gabapentin 300 Mg Capsule) 300 mg PO BID [facility] Last Admin: 02/17/22 09:01 Dose: 300 mg Documented By: AMBER Hydromorphone HCl (Hydromorphone Hcl 1 Mg/Ml Syringe) 1.5 mg IVPUSH Q2H PRN; Protocol PRN Reason: moderate pain Last Admin: 02/17/22 09:01 Dose: 1.5 mg Documented By: AMBER Hydromorphone HCl (Hydromorphone Hcl 4 Mg Tablet) 4 mg PO Q4H PRN PRN Reason: moderate pain Hydroxyzine HCl (Hydroxyzine Hcl 25 Mg Tablet) 25 mg PO Q8H PRN PRN Reason: anxiety Last Admin: 02/12/22 18:21 Dose: 25 mg Documented By: LUISA Lactated Ringer's (Lr) 1,000 mls @ 150 mls/hr IVCONT .Q6H40M [facility] Last Infusion: 02/17/22 09:51 Dose: 0 mls/hr Documented By: AMBER Piperacillin Sod/Tazobactam (Sod 3.375 gm/ Sodium Chloride) 50 mls @ 100 mls/hr IV Q6H [facility] Last Infusion: 02/17/22 09:52 Dose: 0 mls/hr Documented By: AMBER Omeprazole (Omeprazole 20 Mg Capsule.Dr) 20 mg PO DAILY@0630 [facility] Last Admin: 02/17/22 06:07 Dose: 20 mg Documented By: OSIEL Ondansetron HCl (Ondansetron Hcl 4 Mg/2 Ml Vial) 4 mg IVPUSH Q6H PRN PRN Reason: nausea Last Admin: 02/17/22 06:21 Dose: 4 mg Documented By: OSIEL Pharmacy Consult (Consult Rx Perform Med Rec) 1 each MISCELLANE ONCE PRN PRN Reason: Consult order Sodium Chloride (0.9 % Sodium Chloride Flush 3 Ml Syringe) 3 ml IVFLUSH QSHIFT [facility] Last Admin: 02/17/22 09:00 Dose: 3 ml Documented By: AMBER Labs CBC & Chem 7: 02/17/22 06:35 02/17/22 06:35 Labs: Laboratory Results - last 24 hr 02/17/22 02/17/22 06:35 06:35 MCV 99.3 H MCH 31.8 MCHC 32.0 RDW 13.9 Plt Count 270 MPV 10.8 Absolute Nucleated RBC 0.000 Nucleated RBC % (auto) 0.0 Anion Gap 18 Estim Creat Clear Calc 83.8 Estimated GFR 58 Fasting Glucose 74 Calcium 8.4 Magnesium 2.6 Microbiology Microbiology Results: Microbiology 02/14/22 08:33 Blood Culture - Preliminary Blood - Venous No growth after 48 hours. 02/14/22 08:43 Blood Culture - Preliminary Blood - Venous No growth after 48 hours. Assessment and Plan (1) Acute alcoholic pancreatitis: Status: Acute Plan 46M presented with abdominal pain Acute pancreatitis due to alcohol complicated by SIRS a bit better today, ready to start clears continue IV fluids, IV opiates triglycerides - [address] abd showed worsening but no abscess or necrosis No obvious withdrawal, monitor CIWA continue empiric zosyn RANDY and CKD 2 Likely due to dehydration, resolved Hyperkalemia resolved Obesity Weight loss recommended Hypertension Amlodipine DVT prophylaxis with Lovenox full code reason for continued hospitalization:ongiong severe pain requiring iv hydration and iv pain meds, not tolerating po Quality Stroke Does the patient have a stroke diagnosis?: No VTE Prior VTE?: No VTE Risk Level:: Medical - moderate - high VTE Device Contraindication: Treatment Not Indicated VTE Drug Contraindication: N/A - Med Ordered
[2022-02-17] MEDS: Enoxaparin Sodium 40 MG/0.4 ML SYRINGE SUBCUT (16:28)
[2022-02-17] MEDS: Atorvastatin Calcium 80 MG TABLET PO (19:45)
[2022-02-18] VITALS (9 sets, daily range): BP systolic 116–151; BP diastolic 57–86; PULSE 85–98; RESP 15–20; TEMP 36.4–36.9; O2SAT 95–99
[2022-02-18] MEDS: HYDROmorphone HCl 1 MG/ML SYRINGE 1.5 MG IVPUSH ×7 (00:19→20:34)
[2022-02-18] MEDS: Piperacillin Sodium/Tazobactam 3.375 GM in 0.9 % Sodium Chloride 50 ML IV ×4 (02:02→20:28)
[2022-02-18] MEDS: Omeprazole 20 MG CAPSULE.DR PO (06:07)
[2022-02-18] MEDS: Lactated Ringers 1,000 ML 150 ML IVCONT ×3 (06:08→22:54)
[2022-02-18 07:05] LABS: Hematocrit 41.3 % (42.0-52.0); Hemoglobin 13.3 g/dl (14.0-18.0); Mean Corpuscular HGB Conc 32.2 g/dl (31.0-36.0); Mean Corpuscular Hemoglobin 31.4 pg (27.0-33.0); Mean Corpuscular Volume 97.4 fL (80.0-98.0); Mean Platelet Volume 10.5 fL (9.4-12.4); Platelet Count 275 X10*3/uL (160-400); Red Blood Count 4.24 X10*6/uL (4.60-5.80); Red Cell Distribution Width 13.8 % (11.0-16.0); White Blood Count 9.1 X10*3/uL (4.8-10.8)
[2022-02-18 07:22] LABS: Anion Gap 14 (12-20); Blood Urea Nitrogen 5 mg/dL (9-16); Calcium 8.4 mg/dL (8.4-10.2); Carbon Dioxide 26 mmol/L (22-29); Chloride 99 mmol/L (96-108); Creatinine Clr Calc Pharmacy 83.8; Estimated Glomerular Filt Rate 58; Glucose Fasting 96 mg/dL (60-99); Sodium 135 mmol/L (135-145)
[2022-02-18] MEDS: Fluticasone Propionate 100 MCG BLST.W.DEV 1 PUFF INHALE ×2 (08:03→19:43)
[2022-02-18] MEDS: Folic Acid 1 MG TABLET PO (08:55)
[2022-02-18] MEDS: amLODIPine Besylate 10 MG TABLET PO (08:55)
[2022-02-18] MEDS: Cyanocobalamin (Vitamin B-12) 1,000 MCG TABLET 1000 MCG PO (08:56)
[2022-02-18] MEDS: Gabapentin 300 MG CAPSULE PO ×2 (08:56→20:27)
[2022-02-18] MEDS: 0.9 % Sodium Chloride Flush 3 ML SYRINGE IVFLUSH ×3 (09:11→20:29)
--- NOTE | 2022-02-18 10:08 | HO.PM.IMPN ---
Subjective Subjective Date of Service: 02/18/22 Interval History: cc: abd pain interval history:a bit better today, ready to start solids Cardiovascular Cardiovascular: Reports no additional cardiovascular complaints Respiratory Respiratory: Reports no additional respiratory complaints Physical Exam Vital Signs: Vital Signs: Last Vital Signs Temp 98.5 F 02/18/22 07:29 Pulse 91 02/18/22 08:04 Resp 18 02/18/22 08:04 BP 116/57 L 02/18/22 07:29 Pulse Ox 99 02/18/22 07:29 O2 Del Method 02/18/22 07:29 O2 Flow Rate 1 02/16/22 07:45 BMI result Body Mass Index 38.7 General: AO X 3, in less pain Resp: CTA bilateral, no accessory muscles used CVS: S1,S2,RRR GI: soft, tender, non distended Neuro: motor grossly intact, alert Psych: appropriate affect, appropriate insight Objective Data Active Medications Albuterol Sulfate (Albuterol Sulfate 90 Mcg 8 Gm Inhaler) 2 puff INHALE RQ4H PRN PRN Reason: sob Last Admin: 02/16/22 21:28 Dose: 2 puff Documented By: MING Amlodipine Besylate (Amlodipine Besylate 10 Mg Tablet) 10 mg PO DAILY [facility]; Protocol Last Admin: 02/18/22 08:55 Dose: 10 mg Documented By: ADRIANA Atorvastatin Calcium (Atorvastatin Calcium 80 Mg Tablet) 80 mg PO BEDTIME [facility] Last Admin: 02/17/22 19:45 Dose: 80 mg Documented By: OSIEL Cyanocobalamin (Cyanocobalamin (Vitamin B-12) 1,000 Mcg Tablet) 1,000 mcg PO DAILY [facility] Last Admin: 02/18/22 08:56 Dose: 1,000 mcg Documented By: ADRIANA Enoxaparin Sodium (Enoxaparin Sodium 40 Mg/0.4 Ml Syringe) 40 mg SUBCUT Q24H [facility] Last Admin: 02/17/22 16:28 Dose: 40 mg Documented By: AMBER Fluticasone Propionate (Fluticasone Propionate 100 Mcg Blst.W.Dev) 1 puff INHALE RBID [facility] Last Admin: 02/18/22 08:03 Dose: 1 puff Documented By: MARISELA Folic Acid (Folic Acid 1 Mg Tablet) 1 mg PO DAILY [facility] Last Admin: 02/18/22 08:55 Dose: 1 mg Documented By: ADRIANA Gabapentin (Gabapentin 300 Mg Capsule) 300 mg PO BID [facility] Last Admin: 02/18/22 08:56 Dose: 300 mg Documented By: ADRIANA Hydromorphone HCl (Hydromorphone Hcl 1 Mg/Ml Syringe) 1.5 mg IVPUSH Q2H PRN; Protocol PRN Reason: moderate pain Last Admin: 02/18/22 08:54 Dose: 1.5 mg Documented By: ADRIANA Hydroxyzine HCl (Hydroxyzine Hcl 25 Mg Tablet) 25 mg PO Q8H PRN PRN Reason: anxiety Last Admin: 02/12/22 18:21 Dose: 25 mg Documented By: LUISA Lactated Ringer's (Lr) 1,000 mls @ 150 mls/hr IVCONT .Q6H40M [facility] Last Admin: 02/18/22 06:08 Dose: 150 mls/hr Documented By: OSIEL Piperacillin Sod/Tazobactam (Sod 3.375 gm/ Sodium Chloride) 50 mls @ 100 mls/hr IV Q6H [facility] Last Admin: 02/18/22 08:52 Dose: 100 mls/hr Documented By: ADRIANA Omeprazole (Omeprazole 20 Mg Capsule.) 20 mg PO DAILY@0630 [facility] Last Admin: 02/18/22 06:07 Dose: 20 mg Documented By: OSIEL Ondansetron HCl (Ondansetron Hcl 4 Mg/2 Ml Vial) 4 mg IVPUSH Q6H PRN PRN Reason: nausea Last Admin: 02/17/22 06:21 Dose: 4 mg Documented By: OSIEL Pharmacy Consult (Consult Rx Perform Med Rec) 1 each MISCELLANE ONCE PRN PRN Reason: Consult order Sodium Chloride (0.9 % Sodium Chloride Flush 3 Ml Syringe) 3 ml IVFLUSH QSHIFT [facility] Last Admin: 02/18/22 09:11 Dose: 3 ml Documented By: ADRIANA Labs CBC & Chem 7: 02/18/22 06:36 02/18/22 06:36 Labs: Laboratory Results - last 24 hr 02/18/22 02/18/22 06:36 06:36 MCV 97.4 MCH 31.4 MCHC 32.2 RDW 13.8 Plt Count 275 MPV 10.5 Absolute Nucleated RBC 0.000 Nucleated RBC % (auto) 0.0 Anion Gap 14 Estim Creat Clear Calc 83.8 Estimated GFR 58 Fasting Glucose 96 Calcium 8.4 Assessment and Plan (1) Acute alcoholic pancreatitis: Status: Acute Plan 46M presented with abdominal pain Acute pancreatitis due to alcohol complicated by SIRS a bit better today, ready to start solids continue IV fluids, IV opiates triglycerides - [address] abd showed worsening but no abscess or necrosis No obvious withdrawal, monitor CIWA continue empiric zosyn RANDY and CKD 2 Likely due to dehydration, resolved Hyperkalemia resolved Obesity Weight loss recommended Hypertension Amlodipine DVT prophylaxis with Lovenox full code reason for continued hospitalization:awaiting tolerance of po Quality Stroke Does the patient have a stroke diagnosis?: No VTE Prior VTE?: No VTE Risk Level:: Medical - moderate - high VTE Device Contraindication: Treatment Not Indicated VTE Drug Contraindication: N/A - Med Ordered
[2022-02-18] MEDS: Enoxaparin Sodium 40 MG/0.4 ML SYRINGE SUBCUT (16:00)
[2022-02-18] MEDS: Atorvastatin Calcium 80 MG TABLET PO (20:27)
[2022-02-18] MEDS: Docusate Sodium 100 MG CAPSULE PO (20:27)
[2022-02-18] MEDS: HYDROmorphone HCl 2 MG/ML VIAL 1.5 MG IVPUSH (22:53)
[2022-02-19] VITALS (13 sets, daily range): BP systolic 121–142; BP diastolic 67–82; PULSE 80–93; RESP 13–20; TEMP 35.9–37.2; O2SAT 94–99
[2022-02-19] MEDS: HYDROmorphone HCl 2 MG/ML VIAL 1.5 MG IVPUSH ×3 (00:55→05:57)
[2022-02-19] MEDS: Piperacillin Sodium/Tazobactam 3.375 GM in 0.9 % Sodium Chloride 50 ML IV ×4 (01:55→20:55)
[2022-02-19 05:50] LABS: Hematocrit 40.8 % (42.0-52.0); Hemoglobin 13.3 g/dl (14.0-18.0); Mean Corpuscular HGB Conc 32.6 g/dl (31.0-36.0); Mean Corpuscular Hemoglobin 31.5 pg (27.0-33.0); Mean Corpuscular Volume 96.7 fL (80.0-98.0); Mean Platelet Volume 10.1 fL (9.4-12.4); Platelet Count 324 X10*3/uL (160-400); Red Blood Count 4.22 X10*6/uL (4.60-5.80); Red Cell Distribution Width 13.8 % (11.0-16.0); White Blood Count 10.4 X10*3/uL (4.8-10.8)
[2022-02-19] MEDS: Omeprazole 20 MG CAPSULE.DR PO (05:58)
[2022-02-19] MEDS: Lactated Ringers 1,000 ML 150 ML IVCONT ×3 (06:23→15:35)
[2022-02-19 06:24] LABS: Alanine Aminotransferase 24 U/L (0-40); Albumin Level 3.3 g/dL (3.5-5.0); Alkaline Phosphatase 50 U/L (39-117); Anion Gap 14 (12-20); Aspartate Amino Transferase 31 U/L (5-37); Bilirubin Direct 0.2 mg/dL (0.0-0.5); Bilirubin Total 0.4 mg/dL (0.0-1.0); Blood Urea Nitrogen 8 mg/dL (9-16); Calcium 8.5 mg/dL (8.4-10.2); Carbon Dioxide 25 mmol/L (22-29); Chloride 101 mmol/L (96-108); Estimated Glomerular Filt Rate 59; Glucose Fasting 111 mg/dL (60-99); Potassium 4.2 mmol/L (3.3-5.1); Sodium 136 mmol/L (135-145); Total Protein 6.2 g/dL (6.5-8.0)
[2022-02-19] MEDS: Fluticasone Propionate 100 MCG BLST.W.DEV 1 PUFF INHALE ×2 (07:26→20:08)
[2022-02-19] MEDS: amLODIPine Besylate 10 MG TABLET PO (09:13)
[2022-02-19] MEDS: Folic Acid 1 MG TABLET PO (09:13)
[2022-02-19] MEDS: Gabapentin 300 MG CAPSULE PO ×2 (09:13→20:55)
[2022-02-19] MEDS: Cyanocobalamin (Vitamin B-12) 1,000 MCG TABLET 1000 MCG PO (09:13)
[2022-02-19] MEDS: Docusate Sodium 100 MG CAPSULE PO ×2 (09:13→20:55)
[2022-02-19] MEDS: HYDROmorphone HCl 2 MG/ML VIAL IVPUSH ×6 (09:22→23:15)
[2022-02-19] MEDS: ondansetron HCL 4 MG/2 ML VIAL IVPUSH (09:29)
--- NOTE | 2022-02-19 10:05 | P.PNIM_ITS ---
Subjective Subjective Date of Service: 02/19/22 Interval History: cc: abd pain interval history:did okay with clears, but severe pain with solids Cardiovascular Cardiovascular: Reports no additional cardiovascular complaints Respiratory Respiratory: Reports no additional respiratory complaints Physical Exam Vital Signs: Vital Signs: Last Vital Signs Temp 96.7 F L 02/19/22 07:40 Pulse 84 02/19/22 07:40 Resp 20 02/19/22 07:40 BP 142/67 H 02/19/22 07:40 Pulse Ox 99 02/19/22 07:40 O2 Del Method 02/19/22 07:40 O2 Flow Rate 1 02/16/22 07:45 BMI result Body Mass Index 38.7 General: AO X 3, in more pain today Resp: CTA bilateral, no accessory muscles used CVS: S1,S2,RRR GI: soft, tender, non distended Neuro: motor grossly intact, alert Psych: appropriate affect, appropriate insight Objective Data Active Medications Albuterol Sulfate (Albuterol Sulfate 90 Mcg 8 Gm Inhaler) 2 puff INHALE RQ4H PRN PRN Reason: sob Last Admin: 02/16/22 21:28 Dose: 2 puff Documented By: MING Amlodipine Besylate (Amlodipine Besylate 10 Mg Tablet) 10 mg PO DAILY [facility]; Protocol Last Admin: 02/19/22 09:13 Dose: 10 mg Documented By: KAVIN Atorvastatin Calcium (Atorvastatin Calcium 80 Mg Tablet) 80 mg PO BEDTIME [facility] Last Admin: 02/18/22 20:27 Dose: 80 mg Documented By: WILLIETEKFiliberto Cyanocobalamin (Cyanocobalamin (Vitamin B-12) 1,000 Mcg Tablet) 1,000 mcg PO DAILY [facility] Last Admin: 02/19/22 09:13 Dose: 1,000 mcg Documented By: KAVIN Docusate Sodium (Docusate Sodium 100 Mg Capsule) 100 mg PO BID [facility] Last Admin: 02/19/22 09:13 Dose: 100 mg Documented By: KAVIN Enoxaparin Sodium (Enoxaparin Sodium 40 Mg/0.4 Ml Syringe) 40 mg SUBCUT Q24H [facility] Last Admin: 02/18/22 16:00 Dose: 40 mg Documented By: ADRIANA Fluticasone Propionate (Fluticasone Propionate 100 Mcg Blst.W.Dev) 1 puff INHALE RBID [facility] Last Admin: 02/19/22 07:26 Dose: 1 puff Documented By: MARISELA Folic Acid (Folic Acid 1 Mg Tablet) 1 mg PO DAILY [facility] Last Admin: 02/19/22 09:13 Dose: 1 mg Documented By: KAVIN Gabapentin (Gabapentin 300 Mg Capsule) 300 mg PO BID [facility] Last Admin: 02/19/22 09:13 Dose: 300 mg Documented By: KAVIN Hydromorphone HCl (Hydromorphone Hcl 2 Mg/Ml Vial) 2 mg IVPUSH Q2H PRN; Protocol PRN Reason: moderate pain Last Admin: 02/19/22 09:22 Dose: 2 mg Documented By: KAVIN Hydroxyzine HCl (Hydroxyzine Hcl 25 Mg Tablet) 25 mg PO Q8H PRN PRN Reason: anxiety Last Admin: 02/12/22 18:21 Dose: 25 mg Documented By: LUISA Lactated Ringer's (Lr) 1,000 mls @ 150 mls/hr IVCONT .Q6H40M [facility] Last Admin: 02/19/22 09:14 Dose: 150 mls/hr Documented By: KAVIN Piperacillin Sod/Tazobactam (Sod 3.375 gm/ Sodium Chloride) 50 mls @ 100 mls/hr IV Q6H [facility] Last Infusion: 02/19/22 09:45 Dose: 0 mls/hr Documented By: KAVIN Omeprazole (Omeprazole 20 Mg Capsule.Dr) 20 mg PO DAILY@0630 [facility] Last Admin: 02/19/22 05:58 Dose: 20 mg Documented By: MACO Ondansetron HCl (Ondansetron Hcl 4 Mg/2 Ml Vial) 4 mg IVPUSH Q6H PRN PRN Reason: nausea Last Admin: 02/19/22 09:29 Dose: 4 mg Documented By: KAVIN Pharmacy Consult (Consult Rx Perform Med Rec) 1 each MISCELLANE ONCE PRN PRN Reason: Consult order Sodium Chloride (0.9 % Sodium Chloride Flush 3 Ml Syringe) 3 ml IVFLUSH QSHIFT [facility] Last Admin: 02/19/22 09:17 Dose: Not Given Documented By: KAVIN Non-Admin Reason: IV Running Labs CBC & Chem 7: 08/08/22 05:35 02/19/22 05:35 Labs: Laboratory Results - last 24 hr 02/19/22 02/19/22 05:35 05:35 MCV 96.7 MCH 31.5 MCHC 32.6 RDW 13.8 Plt Count 324 MPV 10.1 Absolute Nucleated RBC 0.000 Nucleated RBC % (auto) 0.0 Anion Gap 14 Estim Creat Clear Calc 85.0 Estimated GFR 59 Fasting Glucose 111 H Calcium 8.5 Total Bilirubin 0.4 Direct Bilirubin 0.2 AST 31 ALT 24 Alkaline Phosphatase 50 Total Protein 6.2 L Albumin 3.3 L Assessment and Plan (1) Acute alcoholic pancreatitis: Status: Acute Plan 46M presented with abdominal pain Acute pancreatitis due to alcohol complicated by SIRS did okay with clears yesterday, but had pain with solids will go back to clears, with added ensure will increase dilaudid to 2mg q2h prn continue IV fluids triglycerides - [address] abd 02/16/22 showed worsening but no abscess or necrosis No obvious withdrawal continue empiric zosyn day 6 of 7 RANDY and CKD 2 Likely due to dehydration, resolved Hyperkalemia resolved Obesity Weight loss recommended Hypertension Amlodipine DVT prophylaxis with Lovenox full code reason for continued hospitalization:awaiting tolerance of po Quality Stroke Does the patient have a stroke diagnosis?: No VTE Prior VTE?: No VTE Risk Level:: Medical - moderate - high VTE Device Contraindication: Treatment Not Indicated VTE Drug Contraindication: N/A - Med Ordered
[2022-02-19] MEDS: 0.9 % Sodium Chloride Flush 3 ML SYRINGE IVFLUSH ×2 (15:35→20:54)
[2022-02-19] MEDS: Enoxaparin Sodium 40 MG/0.4 ML SYRINGE SUBCUT (17:41)
[2022-02-19] MEDS: Atorvastatin Calcium 80 MG TABLET PO (20:55)
[2022-02-20] VITALS (10 sets, daily range): BP systolic 114–167; BP diastolic 71–94; PULSE 77–84; RESP 15–20; TEMP 36.2–37; O2SAT 94–99
[2022-02-20] MEDS: Piperacillin Sodium/Tazobactam 3.375 GM in 0.9 % Sodium Chloride 50 ML IV ×4 (01:20→19:41)
[2022-02-20] MEDS: HYDROmorphone HCl 2 MG/ML VIAL IVPUSH ×10 (01:20→23:21)
[2022-02-20] MEDS: Omeprazole 20 MG CAPSULE.DR PO (06:17)
[2022-02-20] MEDS: Lactated Ringers 1,000 ML 150 ML IVCONT (06:32)
[2022-02-20] MEDS: Fluticasone Propionate 100 MCG BLST.W.DEV 1 PUFF INHALE ×2 (07:29→18:49)
[2022-02-20] MEDS: Docusate Sodium 100 MG CAPSULE PO ×2 (08:33→19:41)
[2022-02-20] MEDS: Cyanocobalamin (Vitamin B-12) 1,000 MCG TABLET 1000 MCG PO (08:33)
[2022-02-20] MEDS: amLODIPine Besylate 10 MG TABLET PO (08:33)
[2022-02-20] MEDS: Gabapentin 300 MG CAPSULE PO ×2 (08:33→19:41)
[2022-02-20] MEDS: 0.9 % Sodium Chloride Flush 3 ML SYRINGE IVFLUSH ×3 (08:33→19:41)
[2022-02-20] MEDS: Folic Acid 1 MG TABLET PO (08:33)
--- NOTE | 2022-02-20 09:46 | HO.PM.IMPN ---
Subjective Subjective Date of Service: 02/20/22 Interval History: cc: abd pain interval history: improved a bit today, wanting to try solids Cardiovascular Cardiovascular: Reports no additional cardiovascular complaints Respiratory Respiratory: Reports no additional respiratory complaints Physical Exam Vital Signs: Vital Signs: Last Vital Signs Temp 97.2 F 02/20/22 08:00 Pulse 77 02/20/22 08:00 Resp 20 02/20/22 08:00 BP 114/71 02/20/22 08:00 Pulse Ox 99 02/20/22 08:00 O2 Del Method 02/20/22 08:00 O2 Flow Rate 1 02/16/22 07:45 BMI result Body Mass Index 38.7 General: AO X 3, no acute distress Resp: CTA bilateral, no accessory muscles used CVS: S1,S2,RRR GI: soft, tender, non distended Neuro: motor grossly intact, alert Psych: appropriate affect, appropriate insight g Objective Data Active Medications Albuterol Sulfate (Albuterol Sulfate 90 Mcg 8 Gm Inhaler) 2 puff INHALE RQ4H PRN PRN Reason: sob Last Admin: 02/16/22 21:28 Dose: 2 puff Documented By: MING Amlodipine Besylate (Amlodipine Besylate 10 Mg Tablet) 10 mg PO DAILY [facility]; Protocol Last Admin: 02/20/22 08:33 Dose: 10 mg Documented By: KAVIN Atorvastatin Calcium (Atorvastatin Calcium 80 Mg Tablet) 80 mg PO BEDTIME [facility] Last Admin: 02/19/22 20:55 Dose: 80 mg Documented By: MACO Cyanocobalamin (Cyanocobalamin (Vitamin B-12) 1,000 Mcg Tablet) 1,000 mcg PO DAILY [facility] Last Admin: 02/20/22 08:33 Dose: 1,000 mcg Documented By: KAVIN Docusate Sodium (Docusate Sodium 100 Mg Capsule) 100 mg PO BID [facility] Last Admin: 02/20/22 08:33 Dose: 100 mg Documented By: KAVIN Enoxaparin Sodium (Enoxaparin Sodium 40 Mg/0.4 Ml Syringe) 40 mg SUBCUT Q24H [facility] Last Admin: 02/19/22 17:41 Dose: 40 mg Documented By: KAVIN Fluticasone Propionate (Fluticasone Propionate 100 Mcg Blst.W.Dev) 1 puff INHALE RBID [facility] Last Admin: 02/20/22 07:29 Dose: 1 puff Documented By: MARISELA Folic Acid (Folic Acid 1 Mg Tablet) 1 mg PO DAILY [facility] Last Admin: 02/20/22 08:33 Dose: 1 mg Documented By: KAVIN Gabapentin (Gabapentin 300 Mg Capsule) 300 mg PO BID [facility] Last Admin: 02/20/22 08:33 Dose: 300 mg Documented By: KAVIN Hydromorphone HCl (Hydromorphone Hcl 2 Mg/Ml Vial) 2 mg IVPUSH Q2H PRN; Protocol PRN Reason: moderate pain Last Admin: 02/20/22 08:34 Dose: 2 mg Documented By: KAVIN Hydroxyzine HCl (Hydroxyzine Hcl 25 Mg Tablet) 25 mg PO Q8H PRN PRN Reason: anxiety Last Admin: 02/12/22 18:21 Dose: 25 mg Documented By: LUISA Piperacillin Sod/Tazobactam (Sod 3.375 gm/ Sodium Chloride) 50 mls @ 100 mls/hr IV Q6H [facility] Last Infusion: 02/20/22 09:36 Dose: 0 mls/hr Documented By: KAVIN Omeprazole (Omeprazole 20 Mg Capsule.Dr) 20 mg PO DAILY@0630 [facility] Last Admin: 02/20/22 06:17 Dose: 20 mg Documented By: MACO Ondansetron HCl (Ondansetron Hcl 4 Mg/2 Ml Vial) 4 mg IVPUSH Q6H PRN PRN Reason: nausea Last Admin: 02/19/22 09:29 Dose: 4 mg Documented By: KAVIN Pharmacy Consult (Consult Rx Perform Med Rec) 1 each MISCELLANE ONCE PRN PRN Reason: Consult order Sodium Chloride (0.9 % Sodium Chloride Flush 3 Ml Syringe) 3 ml IVFLUSH QSHIFT [facility] Last Admin: 02/20/22 08:33 Dose: 3 ml Documented By: KAVIN Labs CBC & Chem 7: 02/19/22 05:35 02/19/22 05:35 Microbiology Microbiology Results: Microbiology 02/14/22 08:33 Blood Culture - Final Blood - Venous No growth after 5 days. 02/14/22 08:43 Blood Culture - Final Blood - Venous No growth after 5 days. Assessment and Plan (1) Acute alcoholic pancreatitis: Status: Acute Plan 46M presented with abdominal pain Acute pancreatitis due to alcohol complicated by SIRS did okay again yesterday with clears, will retry solids today continue dilaudid 2mg q2h prn continue IV fluids triglycerides - [address] abd 02/16/22 showed worsening but no abscess or necrosis No obvious withdrawal continue empiric zosyn day 7 of 7 RANDY and CKD 2 Likely due to dehydration, resolved Hyperkalemia resolved Obesity Weight loss recommended Hypertension Amlodipine DVT prophylaxis with Lovenox full code reason for continued hospitalization:awaiting tolerance of po Quality Stroke Does the patient have a stroke diagnosis?: No VTE Prior VTE?: No VTE Risk Level:: Medical - moderate - high VTE Device Contraindication: Treatment Not Indicated VTE Drug Contraindication: N/A - Med Ordered
[2022-02-20] MEDS: Enoxaparin Sodium 40 MG/0.4 ML SYRINGE SUBCUT (16:40)
[2022-02-20] MEDS: ondansetron HCL 4 MG/2 ML VIAL IVPUSH (16:47)
[2022-02-20] MEDS: Atorvastatin Calcium 80 MG TABLET PO (19:41)
[2022-02-21] VITALS (11 sets, daily range): BP systolic 129–145; BP diastolic 60–85; PULSE 70–79; RESP 16–20; TEMP 36–36.8; O2SAT 95–100
[2022-02-21] MEDS: HYDROmorphone HCl 2 MG/ML VIAL IVPUSH ×8 (01:45→22:25)
[2022-02-21] MEDS: Piperacillin Sodium/Tazobactam 3.375 GM in 0.9 % Sodium Chloride 50 ML IV ×2 (01:46→08:43)
[2022-02-21] MEDS: Omeprazole 20 MG CAPSULE.DR PO (06:22)
[2022-02-21] MEDS: Fluticasone Propionate 100 MCG BLST.W.DEV 1 PUFF INHALE ×2 (07:41→19:14)
[2022-02-21] MEDS: Gabapentin 300 MG CAPSULE PO ×2 (08:48→20:13)
[2022-02-21] MEDS: amLODIPine Besylate 10 MG TABLET PO (08:48)
[2022-02-21] MEDS: Folic Acid 1 MG TABLET PO (08:48)
[2022-02-21] MEDS: Docusate Sodium 100 MG CAPSULE PO ×2 (08:48→20:13)
[2022-02-21] MEDS: Cyanocobalamin (Vitamin B-12) 1,000 MCG TABLET 1000 MCG PO (08:48)
[2022-02-21] MEDS: 0.9 % Sodium Chloride Flush 3 ML SYRINGE IVFLUSH ×3 (09:11→20:14)
--- NOTE | 2022-02-21 10:22 | P.PNIM_ITS ---
Subjective Subjective Date of Service: 02/21/22 Interval History: cc: abd pain interval history: managed a little bit of rice and 1 ensure over the day, still requiring frequent opiates Cardiovascular Cardiovascular: Reports no additional cardiovascular complaints Respiratory Respiratory: Reports no additional respiratory complaints Physical Exam Vital Signs: Vital Signs: Last Vital Signs Temp 96.8 F 02/21/22 08:00 Pulse 79 02/21/22 08:00 Resp 16 02/21/22 08:50 BP 138/85 02/21/22 08:00 Pulse Ox 100 02/21/22 08:00 O2 Del Method 02/21/22 08:00 O2 Flow Rate 1 02/16/22 07:45 BMI result Body Mass Index 38.7 General: AO X 3, no acute distress Resp: CTA bilateral, no accessory muscles used CVS: S1,S2,RRR GI: soft, tender, non distended Neuro: motor grossly intact, alert Psych: appropriate affect, appropriate insight Objective Data Active Medications Albuterol Sulfate (Albuterol Sulfate 90 Mcg 8 Gm Inhaler) 2 puff INHALE RQ4H PRN PRN Reason: sob Last Admin: 02/16/22 21:28 Dose: 2 puff Documented By: MING Amlodipine Besylate (Amlodipine Besylate 10 Mg Tablet) 10 mg PO DAILY [facility]; Protocol Last Admin: 02/21/22 08:48 Dose: 10 mg Documented By: RAYMUNDO Atorvastatin Calcium (Atorvastatin Calcium 80 Mg Tablet) 80 mg PO BEDTIME [facility] Last Admin: 02/20/22 19:41 Dose: 80 mg Documented By: ANDRY Cyanocobalamin (Cyanocobalamin (Vitamin B-12) 1,000 Mcg Tablet) 1,000 mcg PO DAILY [facility] Last Admin: 02/21/22 08:48 Dose: 1,000 mcg Documented By: RAYMUNDO Docusate Sodium (Docusate Sodium 100 Mg Capsule) 100 mg PO BID [facility] Last Admin: 02/21/22 08:48 Dose: 100 mg Documented By: RAYMUNDO Enoxaparin Sodium (Enoxaparin Sodium 40 Mg/0.4 Ml Syringe) 40 mg SUBCUT Q24H [facility] Last Admin: 02/20/22 16:40 Dose: 40 mg Documented By: KAVIN Fluticasone Propionate (Fluticasone Propionate 100 Mcg Blst.W.Dev) 1 puff INHALE RBID [facility] Last Admin: 02/21/22 07:41 Dose: 1 puff Documented By: MIKO Folic Acid (Folic Acid 1 Mg Tablet) 1 mg PO DAILY [facility] Last Admin: 02/21/22 08:48 Dose: 1 mg Documented By: RAYMUNDO Gabapentin (Gabapentin 300 Mg Capsule) 300 mg PO BID [facility] Last Admin: 02/21/22 08:48 Dose: 300 mg Documented By: RAYMUNDO Hydromorphone HCl (Hydromorphone Hcl 2 Mg/Ml Vial) 2 mg IVPUSH Q2H PRN; Pr otocol PRN Reason: moderate pain Last Admin: 02/21/22 08:50 Dose: 2 mg Documented By: RAYMUNDO Hydroxyzine HCl (Hydroxyzine Hcl 25 Mg Tablet) 25 mg PO Q8H PRN PRN Reason: anxiety Last Admin: 02/12/22 18:21 Dose: 25 mg Documented By: LUISA Piperacillin Sod/Tazobactam (Sod 3.375 gm/ Sodium Chloride) 50 mls @ 100 mls/hr IV Q6H [facility] Last Infusion: 02/21/22 09:25 Dose: 0 mls/hr Documented By: RAYMUNDO Omeprazole (Omeprazole 20 Mg Capsule.Dr) 20 mg PO DAILY@0630 [facility] Last Admin: 02/21/22 06:22 Dose: 20 mg Documented By: ANDRY Ondansetron HCl (Ondansetron Hcl 4 Mg/2 Ml Vial) 4 mg IVPUSH Q6H PRN PRN Reason: nausea Last Admin: 02/20/22 16:47 Dose: 4 mg Documented By: KAVIN Pharmacy Consult (Consult Rx Perform Med Rec) 1 each MISCELLANE ONCE PRN PRN Reason: Consult order Sodium Chloride (0.9 % Sodium Chloride Flush 3 Ml Syringe) 3 ml IVFLUSH QSHIFT [facility] Last Admin: 02/21/22 09:11 Dose: 3 ml Documented By: RAYMUNDO Labs CBC & Chem 7: 02/19/22 05:35 02/19/22 05:35 Assessment and Plan (1) Acute alcoholic pancreatitis: Status: Acute Plan 46M presented with abdominal pain Acute pancreatitis due to alcohol complicated by SIRS tolerating minimal solids and requiring frequent opiates, continue to challenge with solids continue dilaudid 2mg q2h prn continue IV fluids triglycerides - [address] abd 02/16/22 showed worsening but no abscess or necrosis No obvious withdrawal completed 7 days of empiric zosyn RANDY and CKD 2 Likely due to dehydration, resolved Hyperkalemia resolved Obesity Weight loss recommended Hypertension Amlodipine DVT prophylaxis with Lovenox full code reason for continued hospitalization:awaiting tolerance of po Quality Stroke Does the patient have a stroke diagnosis?: No VTE Prior VTE?: No VTE Risk Level:: Medical - moderate - high VTE Device Contraindication: Treatment Not Indicated VTE Drug Contraindication: N/A - Med Ordered
[2022-02-21] MEDS: ondansetron HCL 4 MG/2 ML VIAL IVPUSH (15:14)
--- NOTE | 2022-02-21 15:27 | MHC.CM.PN ---
per rounds pt is not eating no dc date at this time
[2022-02-21] MEDS: Enoxaparin Sodium 40 MG/0.4 ML SYRINGE SUBCUT (17:35)
[2022-02-21] MEDS: Atorvastatin Calcium 80 MG TABLET PO (20:13)
[2022-02-21] MEDS: hydrOXYzine HCL 25 MG TABLET PO (20:19)
[2022-02-22] VITALS (8 sets, daily range): BP systolic 132–138; BP diastolic 67–90; PULSE 71–80; RESP 17–18; TEMP 36.1–37; O2SAT 97–99
[2022-02-22] MEDS: HYDROmorphone HCl 2 MG/ML VIAL IVPUSH ×3 (00:43→08:27)
[2022-02-22] MEDS: Omeprazole 20 MG CAPSULE.DR PO (06:05)
[2022-02-22 06:32] LABS: Hematocrit 47.5 % (42.0-52.0); Mean Corpuscular HGB Conc 31.6 g/dl (31.0-36.0); Mean Corpuscular Hemoglobin 30.8 pg (27.0-33.0); Mean Corpuscular Volume 97.5 fL (80.0-98.0); Mean Platelet Volume 9.6 fL (9.4-12.4); Platelet Count 459 X10*3/uL (160-400); Red Blood Count 4.87 X10*6/uL (4.60-5.80); Red Cell Distribution Width 13.6 % (11.0-16.0)
[2022-02-22 07:11] LABS: Alanine Aminotransferase 26 U/L (0-40); Albumin Level 3.5 g/dL (3.5-5.0); Alkaline Phosphatase 58 U/L (39-117); Anion Gap 15 (12-20); Aspartate Amino Transferase 33 U/L (5-37); Bilirubin Direct 0.2 mg/dL (0.0-0.5); Bilirubin Total 0.3 mg/dL (0.0-1.0); Blood Urea Nitrogen 13 mg/dL (9-16); Calcium 8.6 mg/dL (8.4-10.2); Carbon Dioxide 27 mmol/L (22-29); Chloride 100 mmol/L (96-108); Creatinine Clr Calc Pharmacy 75.3; Estimated Glomerular Filt Rate 51; Glucose Fasting 100 mg/dL (60-99); Magnesium 2.2 mg/dL (1.6-2.6); Sodium 137 mmol/L (135-145); Total Protein 6.7 g/dL (6.5-8.0)
[2022-02-22] MEDS: Fluticasone Propionate 100 MCG BLST.W.DEV 1 PUFF INHALE ×2 (07:42→19:57)
[2022-02-22] MEDS: Folic Acid 1 MG TABLET PO (08:26)
[2022-02-22] MEDS: Cyanocobalamin (Vitamin B-12) 1,000 MCG TABLET 1000 MCG PO (08:26)
[2022-02-22] MEDS: Docusate Sodium 100 MG CAPSULE PO ×2 (08:27→20:19)
[2022-02-22] MEDS: amLODIPine Besylate 10 MG TABLET PO (08:27)
[2022-02-22] MEDS: Gabapentin 300 MG CAPSULE PO ×2 (08:27→20:18)
[2022-02-22] MEDS: 0.9 % Sodium Chloride Flush 3 ML SYRINGE IVFLUSH ×3 (08:28→20:18)
[2022-02-22] MEDS: Lactulose 20 GM/30 ML SOLUTION PO (11:28)
[2022-02-22] MEDS: oxyCODONE HCl Immed Release 5 MG TABLET PO ×3 (11:28→20:18)
--- NOTE | 2022-02-22 12:51 | MHC.CM.PN ---
Potential discharge tomorrow, Case Management will continue to follow.
--- NOTE | 2022-02-22 15:00 | HO.PM.IMPN ---
Subjective Subjective Date of Service: 02/22/22 Interval History: Feels better overall but still having significant amount of pain Diet is building up slowly Requiring multiple doses of IV Dilaudid No other overnight events Review of Systems No fever, chills or weakness No chest pain, palpitation No shortness of breath or coughing Still having significant abdominal pain, nausea or vomiting but reporting constipation No urinary symptoms No any rash or wounds Physical Exam Vital Signs: Vital Signs: Last Vital Signs Temp 98.0 F 02/22/22 11:37 Pulse 75 02/22/22 11:37 Resp 17 02/22/22 11:37 BP 133/76 02/22/22 11:37 Pulse Ox 98 02/22/22 11:37 O2 Del Method 02/22/22 11:37 O2 Flow Rate 1 02/16/22 07:45 BMI result Body Mass Index 38.7 Const: Other: Constitutional : Alert, oriented, not in distress Neck : Normal inspection, Supple Cardiovascular : RRR, no JVP, no lower extremity edema Respiratory : fair bilateral air entry, no crackles, wheezes or rhonchi Gastrointestinal: soft, lax, Normal bowel sounds, epigastric tenderness Skin : Warm, Dry Neurological : Alert & oriented x3, No focal deficit , CN 2-12 within normal Objective Data Active Medications Albuterol Sulfate (Albuterol Sulfate 90 Mcg 8 Gm Inhaler) 2 puff INHALE RQ4H PRN PRN Reason: sob Last Admin: 02/16/22 21:28 Dose: 2 puff Documented By: MING Amlodipine Besylate (Amlodipine Besylate 10 Mg Tablet) 10 mg PO DAILY [facility]; Protocol Last Admin: 02/22/22 08:27 Dose: 10 mg Documented By: RAYMOND Atorvastatin Calcium (Atorvastatin Calcium 80 Mg Tablet) 80 mg PO BEDTIME [facility] Last Admin: 02/21/22 20:13 Dose: 80 mg Documented By: LUISA Cyanocobalamin (Cyanocobalamin (Vitamin B-12) 1,000 Mcg Tablet) 1,000 mcg PO DAILY [facility] Last Admin: 02/22/22 08:26 Dose: 1,000 mcg Documented By: RAYMOND Docusate Sodium (Docusate Sodium 100 Mg Capsule) 100 mg PO BID [facility] Last Admin: 02/22/22 08:27 Dose: 100 mg Documented By: RAYMOND Enoxaparin Sodium (Enoxaparin Sodium 40 Mg/0.4 Ml Syringe) 40 mg SUBCUT Q24H [facility] Last Admin: 02/21/22 17:35 Dose: 40 mg Documented By: RAYMUNDO Fluticasone Propionate (Fluticasone Propionate 100 Mcg Blst.W.Dev) 1 puff INHALE RBID [facility] Last Admin: 02/22/22 07:42 Dose: 1 puff Documented By: MARISELA Folic Acid (Folic Acid 1 Mg Tablet) 1 mg PO DAILY [facility] Last Admin: 02/22/22 08:26 Dose: 1 mg Documented By: RAYMOND Gabapentin (Gabapentin 300 Mg Capsule) 300 mg PO BID [facility] Last Admin: 02/22/22 08:27 Dose: 300 mg Documented By: RAYMOND Hydroxyzine HCl (Hydroxyzine Hcl 25 Mg Tablet) 25 mg PO Q8H PRN PRN Reason: anxiety Last Admin: 02/21/22 20:19 Dose: 25 mg Documented By: LUISA Omeprazole (Omeprazole 20 Mg Capsule.Dr) 20 mg PO DAILY@0630 [facility] Last Admin: 02/22/22 06:05 Dose: 20 mg Documented By: LUISA Ondansetron HCl (Ondansetron Hcl 4 Mg/2 Ml Vial) 4 mg IVPUSH Q6H PRN PRN Reason: nausea Last Admin: 02/21/22 15:14 Dose: 4 mg Documented By: RAYMUNDO Oxycodone HCl (Oxycodone Hcl Immed Release 5 Mg Tablet) 5 mg PO Q4H PRN PRN Reason: Pain, Severe (Pain Scale 7-10) Last Admin: 02/22/22 11:28 Dose: 5 mg Documented By: RAYMOND Pharmacy Consult (Consult Rx Perform Med Rec) 1 each MISCELLANE ONCE PRN PRN Reason: Consult order Sodium Chloride (0.9 % Sodium Chloride Flush 3 Ml Syringe) 3 ml IVFLUSH QSHIFT [facility] Last Admin: 02/22/22 08:28 Dose: 3 ml Documented By: RAYMOND Labs CBC & Chem 7: 02/22/22 06:13 02/22/22 06:13 Labs: Laboratory Results - last 24 hr 02/22/22 02/22/22 06:13 06:13 MCV 97.5 MCH 30.8 MCHC 31.6 RDW 13.6 Plt Count 459 H D MPV 9.6 Absolute Nucleated RBC 0.000 Nucleated RBC % (auto) 0.0 Anion Gap 15 Estim Creat Clear Calc 75.3 Estimated GFR 51 Fasting Glucose 100 H Calcium 8.6 Magnesium 2.2 Total Bilirubin 0.3 Direct Bilirubin 0.2 AST 33 ALT 26 Alkaline Phosphatase 58 Total Protein 6.7 Albumin 3.5 Assessment and Plan (1) Acute alcoholic pancreatitis: Status: Acute Plan 46M presented with abdominal pain Acute pancreatitis due to alcohol complicated by SIRS repeat CT abd 02/16/22 showed worsening but no abscess or necrosis tolerating solids more Still requiring frequent opiates Change dilaudid to p.o. oxycodone Fluids were held triglycerides - 338 Give lactulose for constipation No obvious withdrawal completed 7 days of empiric zosyn RANDY and CKD 2 Likely due to dehydration, resolved Hyperkalemia resolved Obesity Weight loss recommended Hypertension Amlodipine DVT prophylaxis with Lovenox full code reason for continued hospitalization:awaiting tolerance of po Quality Stroke Does the patient have a stroke diagnosis?: No VTE Prior VTE?: No VTE Risk Level:: Medical - moderate - high VTE Device Contraindication: Treatment Not Indicated VTE Drug Contraindication: N/A - Med Ordered
[2022-02-22] MEDS: Enoxaparin Sodium 40 MG/0.4 ML SYRINGE SUBCUT (16:14)
[2022-02-22] MEDS: Atorvastatin Calcium 80 MG TABLET PO (20:18)
[2022-02-22] MEDS: hydrOXYzine HCL 25 MG TABLET PO (20:23)
[2022-02-23] VITALS: BP 132/68; PULSE 80; RESP 18; TEMP 36.1; O2SAT 99
[2022-02-23 04:00] VITALS: BP 117/68; PULSE 68; RESP 18; TEMP 36.4; O2SAT 99
[2022-02-23] MEDS: oxyCODONE HCl Immed Release 5 MG TABLET PO ×2 (06:06→10:43)
[2022-02-23] MEDS: Omeprazole 20 MG CAPSULE.DR PO (06:06)
[2022-02-23 06:37] LABS: Anion Gap 16 (12-20); Blood Urea Nitrogen 12 mg/dL (9-16); Calcium 8.5 mg/dL (8.4-10.2); Carbon Dioxide 21 mmol/L (22-29); Chloride 104 mmol/L (96-108); Creatinine Clr Calc Pharmacy 100.4; Estimated Glomerular Filt Rate > 60; Glucose Random 102 mg/dL (60-115); Potassium 4.6 mmol/L (3.3-5.1); Sodium 136 mmol/L (135-145)
[2022-02-23 07:19] VITALS: PULSE 68; RESP 16; O2SAT 96
[2022-02-23] MEDS: Fluticasone Propionate 100 MCG BLST.W.DEV 1 PUFF INHALE (07:19)
[2022-02-23 07:41] VITALS: BP 118/57; PULSE 68; RESP 16; TEMP 36.4; O2SAT 95
[2022-02-23] MEDS: Docusate Sodium 100 MG CAPSULE PO (08:59)
[2022-02-23] MEDS: Folic Acid 1 MG TABLET PO (08:59)
[2022-02-23] MEDS: Cyanocobalamin (Vitamin B-12) 1,000 MCG TABLET 1000 MCG PO (08:59)
[2022-02-23] MEDS: amLODIPine Besylate 10 MG TABLET PO (08:59)
[2022-02-23] MEDS: 0.9 % Sodium Chloride Flush 3 ML SYRINGE IVFLUSH (08:59)
[2022-02-23] MEDS: Gabapentin 300 MG CAPSULE PO (08:59)
--- NOTE | 2022-02-23 10:14 | MHC.CM.PN ---
pt to be dcd today no skilled servceis ordered by
[2022-02-23 12:00] VITALS: BP 120/58; PULSE 83; RESP 16; TEMP 36.4; O2SAT 98
--- NOTE | 2022-02-23 12:40 | PM.DS ---
DS: Providers Provider Date of Service: 02/23/22 Date of admission: 02/12/22 16:42 Primary care physician: Kervin Foss III, MD DS: Diagnosis Discharge Diagnosis (1) Acute alcoholic pancreatitis: Status: Acute (2) Hyperkalemia: Status: Acute (3) Acute kidney injury: Status: Acute DS: Summary Hospital Course Hospital Course: Admission note HPI Hospital course The patient was admitted to the hospital for evaluation of abdominal pain. CT scan in the emergency was positive for acute pancreatitis. He had an evidence of sirs at presentation and he was covered with empirical antibiotic of Zosyn for 1 week. Abdominal pain did not improve quickly so repeated CT scan was done showing worsening pancreatitis but no evidence of abscess or necrosis. Treated with IV fluid, antiemetic and pain medication with good response over the course of prolonged hospital stay. Tolerated diet as it was advanced gradually. Advise complete abstinence from alcohol. Noted to have acute kidney injury at time of presentation which recovered back to normal with hydration. Use oxycodone as needed for pain Use Zofran as needed for nausea We advise you complete abstinence from alcohol Time Spent with Patient Time attestation: Total time spent providing and/or coordinating discharge services: Discharge coordination time: Greater than 30 minutes Quality: Safe Use of Opioids Does Pt have an Active Cancer Diagnosis on the Problem List?: No Quality: Stroke Does the patient have a stroke diagnosis?: No Physical Exam Vital Signs: Vital Signs: Last Vital Signs Temp 97.6 F 02/23/22 12:00 Pulse 83 02/23/22 12:00 Resp 16 02/23/22 12:00 BP 120/58 L 02/23/22 12:00 Pulse Ox 98 02/23/22 12:00 O2 Del Method 02/23/22 12:00 O2 Flow Rate 1 02/16/22 07:45 BMI result Body Mass Index 38.7 Const: Other: Constitutional : Alert, oriented, not in distress Neck : Normal inspection, Supple Cardiovascular : RRR, no JVP, no lower extremity edema Respiratory : fair bilateral air entry, no crackles, wheezes or rhonchi Gastrointestinal: soft, lax, Normal bowel sounds, no epigastric tenderness Skin : Warm, Dry Neurological : Alert & oriented x3, No focal deficit , CN 2-12 within normal DS: Data Data Completed and Pending Labs on day of discharge: Laboratory Results - last 24 hr 02/23/22 06:02 Sodium 136 Potassium 4.6 Chloride 104 Carbon Dioxide 21 L Anion Gap 16 BUN 12 Creatinine 1.11 Estim Creat Clear Calc 100.4 Estimated GFR > 60 Random Glucose [address] scan - abdomen: Radiologist's impression: ITS Impressions Abdomen/Pelvis CT 02/12/22 16:17 IMPRESSION: Acute pancreatitis with peripancreatic inflammatory change and small amount of fluid. There is no drainable collection. 2.5 cm area of relative hypoenhancement in the tail of the pancreas. Fleischner guidelines were followed. Abdomen/Pelvis CT 02/16/22 13:06 IMPRESSION: There is increased severity of previously described pancreatitis, with persistent inflammatory change and increased free fluid, particularly situated adjacent to the tail portion. This fluid shows no enhancing rind to suggest pseudocyst formation. There is no drainable abscess noted. A stable small focus of hypoenhancement is seen within the pancreatic tail. Fleischner guidelines were followed. Discharge Plan Discharge Patient Disposition: Home, Self-Care Discharge Diagnosis: Alcoholic pancreatitis Acute kidney injury Referrals: Kervin Foss III, MD [Primary Care Provider] - 1 Week Discharge Medications: New oxycodone 5 mg Tablet 5 mg PO Q6-8H PRN (Reason: Pain, Severe (Pain Scale 7-10)) Qty: 15 0RF Rx Instructions: Partial Fill upon patient request. ondansetron 4 mg tablet,disintegrating 4 mg PO Q8H PRN (Reason: nausea and vomiting) Qty: 14 0RF Continued amlodipine 10 mg tablet 1 tab PO DAILY omeprazole 20 mg capsule,delayed release(DR/EC) 1 cap PO DAILY albuterol sulfate 90 mcg/actuation HFA aerosol inhaler 2 puff PO Q4H PRN (Reason: Dyspnea) fluticasone propionate [Flovent HFA] 110 mcg/actuation HFA aerosol inhaler 1 puff PO BID hydroxyzine HCl 25 mg tablet 1 tab PO Q8H PRN (Reason: anxiety) gabapentin 300 mg capsule 1 cap PO BID atorvastatin 80 mg Tablet 80 mg PO BEDTIME cyanocobalamin (vitamin B-12) 1,000 mcg Tablet 1,000 mcg PO DAILY folic acid 1 mg Tablet 1 mg PO DAILY Discharge Orders: Discharge Order (Routine); Ordered 02/23/22 Ordered By: Khaled Abuhashmeh Diet: Advance to usual diet Activity on Discharge: As tolerated Stand Alone Forms: Patient Portal Discharge page Care Plan Goals: Read below Health Concerns: Read below Plan of Treatment: Read below Assessment: You were admitted to the hospital for evaluation of abdominal pain. Found to have an evidence of pancreatitis on abdominal images. Treated with IV fluid, nausea medication and pain control as your symptoms improved over the course of hospital stay. Received empirical antibiotics for 1 week. Pain became under better control as you tolerated oral diet. Noted to have kidney injury at time of presentation which improved back to normal baseline with hydration. Use oxycodone as needed for pain Use Zofran as needed for nausea We advise you complete abstinence from alcohol
== END 2022-02-23 14:32 | disposition home or self-care (01) | DRG 282 ==
LOC: HO.ED 16:43 → HO.EDOVER 16:52 → HO.IMC 02-13 12:39
PROVIDERS: Admitting Provider Internal Medicine; Emergency Provider Student in an Organized Health Care Education/Training Program; PCP Internal Medicine; Visit Provider Student in an Organized Health Care Education/Training Program
DX: K85.20 Alcohol induced acute pancreatitis without necrosis or infection (principal); R65.11 Systemic inflammatory response syndrome (SIRS) of non-infectious origin with acute organ dysfunction; I12.9 Hypertensive chronic kidney disease with stage 1 through stage 4 chronic kidney disease, or unspecified chronic kidney disease; N18.2 Chronic kidney disease, stage 2 (mild); N17.9 Acute kidney failure, unspecified; E86.0 Dehydration; Z20.822 Contact with and (suspected) exposure to COVID-19; E87.5 Hyperkalemia; E66.9 Obesity, unspecified; Z68.38 Body mass index [BMI] 38.0-38.9, adult; Z79.51 Long term (current) use of inhaled steroids; Z79.899 Other long term (current) drug therapy
CPT/HCPCS: 36415; 74177; 80048; 80076; 83605; 83690; 83735; 84478; 85025; 85027; 87040; 87635; 93005; 93306; 94640; 94664; 99285; J1170; J1650; J2405; J2543; Q9957; Q9967

== ENCOUNTER 2022-03-08 15:22 | Emergency (ER) | payer OTHER, SELFPAY ==
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
--- NOTE | ~2022-03-08 | CT_ITS ---
EXAMINATION: CT HEAD WITHOUT CONTRAST CLINICAL INFORMATION: Headache, neck pain. COMPARISON: 08/23/[address] scan. TECHNIQUE: Contiguous axial imaging was performed from the skull base to vertex without intravenous administration of contrast. Coronal and sagittal reformatted images were obtained. This CT examination was performed using dose optimization techniques as appropriate, variously including the following: *Automated exposure control *Adjustment of mA and/or kV according to patient size (this includes techniques or standardized protocols for targeted exams where dose is matched to indication/reason for exam; i.e. extremities or head) *Use of iterative reconstruction technique DLP: 735.71 mGy-cm FINDINGS: The cortical sulci are normal. The lateral ventricles are symmetrical. The third and fourth ventricles are in their normal midline position. The basilar and prepontine cisterns are unremarkable. There is no acute intra or extracerebral abnormality. There is no mass effect or midline shift. Sections through the bony calvarium are unremarkable. The visualized paranasal sinuses show mild mucosal thickening posteriorly in the right maxillary sinus. The bony orbits and orbital contents are unremarkable. CT/CT head/brain wo con IMPRESSION: No acute intracranial pathology.
[2022-03-08 15:40] VITALS: BP 135/85; PULSE 79; RESP 18; O2SAT 98; BMI 37.1
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
== END 2022-03-08 18:39 | disposition home or self-care (01) ==
PROVIDERS: Emergency Provider Emergency Medicine Emergency Medical Services; PCP Internal Medicine
DX: S13.4XXA Sprain of ligaments of cervical spine, initial encounter (principal); S16.1XXA Strain of muscle, fascia and tendon at neck level, initial encounter; V43.52XA Car driver injured in collision with other type car in traffic accident, initial encounter; Y93.89 Activity, other specified; Y92.414 Local residential or business street as the place of occurrence of the external cause; Y99.9 Unspecified external cause status
CPT/HCPCS: 70450; 72125; 99282; 99284

== ENCOUNTER 2022-06-21 22:14 | Emergency (ER) | payer SELFPAY ==
--- NOTE | ~2022-06-21 | CT_ITS ---
EXAMINATION: CT ABDOMEN AND PELVIS WITHOUT CONTRAST CLINICAL INFORMATION: Right-sided pain. COMPARISON: CT abdomen pelvis 02/16/2022. TECHNIQUE: Multidetector volumetric imaging was performed from the superior aspect of the liver through the pubic symphysis. Sagittal and coronal reformatted images were obtained on the technologist's workstation. This CT examination was performed using dose optimization techniques as appropriate, variously including the following: *Automated exposure control *Adjustment of mA and/or kV according to patient size (this includes techniques or standardized protocols for targeted exams where dose is matched to indication/reason for exam; i.e. extremities or head) *Use of iterative reconstruction technique DLP: 626 mGy-cm FINDINGS: LUNG BASES: The visualized lung bases are unremarkable. LIVER, GALLBLADDER, AND BILIARY TREE: The liver is normal in size, shape, and attenuation. No focal hepatic lesion or biliary ductal dilatation is present. The gallbladder is unremarkable with no evidence of radiopaque gallstones, gallbladder wall thickening, or obvious pericholecystic inflammatory changes. PANCREAS: No peripancreatic inflammatory changes noted. No dystrophic calcifications of the pancreas. SPLEEN: Unremarkable. ADRENAL GLANDS: Unremarkable. KIDNEYS AND URETERS: No hydronephrosis. No perinephric inflammatory changes. No ureterectasis. No urolithiasis noted. A small number of scattered pelvic phleboliths are noted including a punctate phlebolith on series 4 image 613 which is unchanged compared with 02/16/2022) proximity to the right ureter but not definitively within the right ureter. BLADDER: Mild concentric mural thickening of the urinary bladder which is partially decompressed. GASTROINTESTINAL TRACT: A curvilinear tubular structure which may represent a normal, diminutive appendix is noted on series 6 image 86. This finding is not definitive for the appendix. No free intraperitoneal fluid or gas collections. No intestinal dilatation or mural thickening. Normal appearance of the sigmoid mesentery and small bowel mesentery. ABDOMINAL WALL: A periumbilical hernia containing omental fat measures 1.5 cm in diameter unchanged compared with 12/01/2021. LYMPH NODES: Normal. VASCULAR: Mild scattered calcific atherosclerosis. PELVIC VISCERA: Normal size of the prostate. OSSEOUS STRUCTURES: Unremarkable. CT/CT abdomen pelvis wo IV con IMPRESSION: 1. No definitive acute abnormalities identified. 2. No urolithiasis. No hydronephrosis or ureterectasis. 3. Mild concentric mural thickening of the urinary bladder which may represent cystitis or mural trabeculation related to chronic urinary outlet obstruction. 4. Small periumbilical hernia containing omental fat unchanged compared with 12/01/2021.
[2022-06-21 22:20] VITALS: BP 160/104; PULSE 82; RESP 20; TEMP 36.4; O2SAT 97; BMI 37.5
[2022-06-21 23:57] LABS: MANUAL DIFF FLAG NO
[2022-06-21 23:58] LABS: Basophils Percent Auto 0.2 % (0-2); Eosinophils Absolute Auto 0.1 X10*3/uL (0.0-0.4); Eosinophils Percent Auto 0.8 % (0-4); Hematocrit 48.4 % (42.0-52.0); Hemoglobin 16.9 g/dl (14.0-18.0); Imm Gran Abs Auto 0.01 X10*3/uL (0.00-0.03); Imm Gran Pct Auto 0.1 % (0.0-0.4); Lymphocytes Absolute Auto 1.7 X10*3/uL (1.2-4.9); Lymphocytes Percent Auto 19.5 % (20-40); Mean Corpuscular HGB Conc 34.9 g/dl (31.0-36.0); Mean Corpuscular Hemoglobin 31.6 pg (27.0-33.0); Mean Corpuscular Volume 90.6 fL (80.0-98.0); Mean Platelet Volume 10.2 fL (9.4-12.4); Monocytes Absolute Auto 0.5 X10*3/uL (0.1-1.2); Monocytes Percent Auto 5.7 % (2-11); Neutrophils Absolute Auto 6.6 x10*3/uL (2.0-8.3); Neutrophils Percent Auto 73.7 % (45-73); Platelet Count 235 X10*3/uL (160-400); Red Blood Count 5.34 X10*6/uL (4.60-5.80); Red Cell Distribution Width 13.2 % (11.0-16.0); White Blood Count 8.9 X10*3/uL (4.8-10.8)
[2022-06-22 00:27] LABS: Alanine Aminotransferase 52 U/L (0-40); Albumin Level 4.7 g/dL (3.5-5.0); Alkaline Phosphatase 47 U/L (39-117); Anion Gap 16 (12-20); Aspartate Amino Transferase 34 U/L (5-37); Bilirubin Total 0.4 mg/dL (0.0-1.0); Blood Urea Nitrogen 21 mg/dL (9-16); Calcium 9.8 mg/dL (8.4-10.2); Carbon Dioxide 22 mmol/L (22-29); Chloride 102 mmol/L (96-108); Creatinine Clr Calc Pharmacy 81.6; Estimated Glomerular Filt Rate 58; Glucose Random 139 mg/dL (60-115); Lipase 50 U/L (8-78); Potassium 3.6 mmol/L (3.3-5.1); Sodium 136 mmol/L (135-145); Total Protein 7.8 g/dL (6.5-8.0)
--- NOTE | 2022-06-22 03:22 | ED.ABDPAIN ---
HPI - Abdominal Pain General Chief Complaint: Abdominal Pain Stated Complaint: Appendix pain Time Seen by Provider: 06/22/22 03:22 Source: patient Mode of arrival: ambulatory Limitations: no limitations History of Present Illness HPI narrative: Patient still hypertension hyperlipidemia cocaine use and pancreatitis in the past comes in for pain in the right lower abdomen for last few weeks increases on palpation and walking Lue fevers or chills no urinary symptoms patient feels hungry and eating good amount no abdominal distension no increase in pain in moving his bowels pain radiates to the right groin area increases on movement of the right leg Related Data Home Medications Medication Instructions Recorded Confirmed albuterol sulfate 90 mcg/actuation 2 puff PO Q4H PRN Dyspnea 09/23/21 02/12/22 aerosol inhaler amlodipine 10 mg tablet 1 tab PO DAILY 09/23/21 02/12/22 fluticasone propionate 110 1 puff PO BID 09/23/21 02/12/22 mcg/actuation HFA aerosol inhaler (Flovent HFA) hydroxyzine HCl 25 mg tablet 1 tab PO Q8H PRN anxiety 09/23/21 02/12/22 omeprazole 20 mg capsule,delayed 1 cap PO DAILY 09/23/21 02/12/22 release atorvastatin 80 mg tablet 80 mg PO BEDTIME 02/12/22 02/12/22 cyanocobalamin (vitamin B-12) 1,000 mcg PO DAILY 02/12/22 02/12/22 1,000 mcg tablet folic acid 1 mg tablet 1 mg PO DAILY 02/12/22 02/12/22 gabapentin 300 mg capsule 1 cap PO BID 02/12/22 02/12/22 Previous Rx's Medication Instructions Recorded ondansetron 4 mg disintegrating 4 mg PO Q8H PRN nausea and 02/23/22 tablet vomiting #14 tabs oxycodone 5 mg tablet 5 mg PO Q6-8H PRN Pain, Severe 02/23/22 (Pain Scale 7-10) #15 tabs cyclobenzaprine 10 mg tablet 10 mg PO TID PRN muscle spasm #14 03/08/22 tabs ibuprofen 600 mg tablet 600 mg PO Q8H PRN pain #20 tabs 03/08/22 lidocaine 5 % topical patch 1 patch topical DAILY #15 ea 03/08/22 oxycodone-acetaminophen 5 mg-325 1 tab PO Q6H PRN pain #20 tabs 06/22/22 mg tablet (Percocet) Allergies Allergy/AdvReac Type Severity Reaction Status Date / Time No Known Allergies Allergy Verified 06/21/22 22:24 Review of Systems Review of Systems Yes all other systems are reviewed and are negative [facility] Past Medical History Medical History Alcohol abuse HLD (hyperlipidemia) HTN (hypertension) Obesity Pancreatitis Surgical History No pertinent past surgical history Family History Family History Other No family history of coronary artery disease Social History Social History Household Members: Spouse Housing: [facility] Do you presently have visiting nurse or other home services: No Alcohol intake: current Alcohol intake frequency: a few times a week Patient Tobacco Use Status: Never used Tobacco Substance Use Type: Crack/Cocaine Advance Directives: No Advance Directives Information Provided: Yes service: No Current occupational status: employed Physical Exam ED Vital Signs: Vital Signs - 24 hr 06/21/22 22:20 06/22/22 04:08 06/22/22 06:13 Temperature 97.6 F 98.0 F 97.3 F Pulse Rate 82 77 81 Respiratory Rate 20 18 18 Blood Pressure 160/104 H 138/88 125/75 Pulse Oximetry 97 97 96 Oxygen Delivery Method Room Air Room Air Room Air BMI result Body Mass Index 37.5 Appearance: Alert. Oriented X3. No acute distress. Eyes: No pallor or icterus ENT: Pharynx normal. Oral Mucosa moist Neck: Normal inspection. Neck supple. CVS: Normal heart rate and rhythm. Pulses normal. Respiratory: No respiratory distress. Equal air entry bilateral, no wheezing/rales/rhonchi Abdomen: Soft 20 of tenderness lead lower quadrant no rebound tenderness/guarding no hernia palpable Bowel sounds are present, no mass palpable, no CVA tenderness Skin: Skin warm and dry. Normal skin color. Normal skin turgor. Extremities: No lower extremity edema. No calf tenderness Neuro: Oriented X 3. No motor deficit. Medical Decision Making Medical Decision Making MDM Narrative: Patient's right lower abdominal pain in the right groin pain for last few weeks workup negative CT scan negative clinically patient has a groin strain pressure patient on pain medication Lab Attestation: I reviewed the patient's lab results. Discussion of test interpretation with radiology: Discussion of test interpretation with radiology Medications Administered Discontinued Medications Generic Name Dose Route Start Last Admin Trade Name Freq PRN Reason Stop Dose Admin Iohexol 85 ml 06/22/22 04:12 06/22/22 04:13 Iohexol 350 Mg/Ml 100 Ml Infus..Btl IV 06/22/22 04:13 85 ml ONCE ONE Administration Discharge Plan Discharge Clinical Impression: Abdominal pain in male, Ilio-inguinal strain Patient Disposition: Home, Self-Care Instructions: Groin Strain (ED), Abdominal Pain (ED) Additional Instructions: Your CT scan is negative for any acute abdominal abnormality likely have strain of the groin muscle take pain medication as prescribed Report to the ER if worsening of the pain Prescriptions: New oxycodone-acetaminophen [Percocet] 5-325 mg tablet 1 tab PO Q6H PRN (Reason: pain) Qty: 20 0RF Rx Instructions: Partial Fill upon patient request. No Action cyclobenzaprine 10 mg tablet 10 mg PO TID PRN (Reason: muscle spasm) Qty: 14 0RF ibuprofen 600 mg tablet 600 mg PO Q8H PRN (Reason: pain) Qty: 20 0RF lidocaine 5 % adhesive patch,medicated 1 patch topical DAILY Qty: 15 0RF Rx Instructions: leave on most painful area for up to 12 hrs amlodipine 10 mg tablet 1 tab PO DAILY omeprazole 20 mg capsule,delayed release(DR/EC) 1 cap PO DAILY albuterol sulfate 90 mcg/actuation HFA aerosol inhaler 2 puff PO Q4H PRN (Reason: Dyspnea) fluticasone propionate [Flovent HFA] 110 mcg/actuation HFA aerosol inhaler 1 puff PO BID hydroxyzine HCl 25 mg tablet 1 tab PO Q8H PRN (Reason: anxiety) gabapentin 300 mg capsule 1 cap PO BID atorvastatin 80 mg Tablet 80 mg PO BEDTIME cyanocobalamin (vitamin B-12) 1,000 mcg Tablet 1,000 mcg PO DAILY folic acid 1 mg Tablet 1 mg PO DAILY oxycodone 5 mg Tablet 5 mg PO Q6-8H PRN (Reason: Pain, Severe (Pain Scale 7-10)) Qty: 15 0RF Rx Instructions: Partial Fill upon patient request. ondansetron 4 mg tablet,disintegrating 4 mg PO Q8H PRN (Reason: nausea and vomiting) Qty: 14 0RF
[2022-06-22 03:42] LABS: Appearance Urine Clear; Color Urine Yellow; Glucose Urine UA Negative (Negative); Leukocyte Esterase Urine Negative (Negative); Nitrite Urine Negative (Negative); PH 5.5 (5.0-9.0); Urine Blood Negative (Negative); Urine Ketones Negative (Negative); Urine Protein Negative (Neg-Trace)
[2022-06-22 04:08] VITALS: BP 138/88; PULSE 77; RESP 18; TEMP 36.7; O2SAT 97
[2022-06-22] MEDS: iohexoL 350 MG/ML 100 ML INFUS..BTL 85 ML IV (04:13)
[2022-06-22 06:13] VITALS: BP 125/75; PULSE 81; RESP 18; TEMP 36.3; O2SAT 96
[2022-06-22] MEDS: oxyCODONE HCl Immed Release 5 MG TABLET 10 MG PO (06:51)
== END 2022-06-22 07:01 | disposition home or self-care (01) ==
PROVIDERS: Emergency Provider Internal Medicine; PCP Internal Medicine
DX: R10.31 Right lower quadrant pain (principal); F14.90 Cocaine use, unspecified, uncomplicated; Z79.899 Other long term (current) drug therapy
CPT/HCPCS: 36415; 74176; 80053; 81003; 83690; 85025; 99283; 99284; Q9967

== ENCOUNTER 2023-01-16 08:46 | Emergency (ER) | payer OTHER, SELFPAY ==
[2023-01-16 08:54] VITALS: BP 162/106; PULSE 87; RESP 20; TEMP 36.3; O2SAT 97; BMI 36.8
--- NOTE | 2023-01-16 09:03 | ED_ITS ---
HPI - General Adult General Chief complaint: Abdominal Pain Stated complaint: Abdominal Pain Time Seen by Provider: 01/16/23 09:01 Source: patient Mode of arrival: ambulatory Limitations: no limitations History of Present Illness HPI narrative: Patient is a 47 year old assigned male at with a history of HTN and pancreatitis presenting to the emergency department today with abdominal pain. Patient states that the last time this happened, it was after binge drinking and he was told it was his pancreas. Patient states that the last time he drank alcohol was 1 week ago and the pain has been persistent since then. Patient denies any dizziness, lightheadedness, vomiting, fever, chills, blurry vision, double vision, loss of vision, chest pain, difficulty breathing, shortness of breath, back pain, night sweats, pain with urination, increased urinary frequency, increased urinary urgency, blood in his urine or stool, syncope or a near syncopal episode, recent trauma or falls, bowel incontinence, bladder inc ontinence, bowel retention, bladder retention, or any other complaints at this time. Onset (ago): week(s) (1) Location: abdomen Radiation: non-radiation Severity: mild Severity scale (1-10): 3 Quality: dull Pain Consistency: constant Relieving factors: none Exacerbating factors: none Associated symptoms: denies other symptoms Treatments prior to arrival: none Related Data Home Medications Medication Instructions Recorded Confirmed albuterol sulfate 90 mcg/actuation 2 puff PO Q4H PRN Dyspnea 09/23/21 02/12/22 aerosol inhaler amlodipine 10 mg tablet 1 tab PO DAILY 09/23/21 02/12/22 fluticasone propionate 110 1 puff PO BID 09/23/21 02/12/22 mcg/actuation HFA aerosol inhaler (Flovent HFA) hydroxyzine HCl 25 mg tablet 1 tab PO Q8H PRN anxiety 09/23/21 02/12/22 omeprazole 20 mg capsule,delayed 1 cap PO DAILY 09/23/21 02/12/22 release atorvastatin 80 mg tablet 80 mg PO BEDTIME 02/12/22 02/12/22 cyanocobalamin (vitamin B-12) 1,000 mcg PO DAILY 02/12/22 02/12/22 1,000 mcg tablet folic acid 1 mg tablet 1 mg PO DAILY 08/01/22 08/01/22 gabapentin 300 mg capsule 1 cap PO BID 02/12/22 02/12/22 Previous Rx's Medication Instructions Recorded ondansetron 4 mg disintegrating 4 mg PO Q8H PRN nausea and 02/23/22 tablet vomiting #14 tabs oxycodone 5 mg tablet 5 mg PO Q6-8H PRN Pain, Severe 02/23/22 (Pain Scale 7-10) #15 tabs cyclobenzaprine 10 mg tablet 10 mg PO TID PRN muscle spasm #14 03/08/22 tabs ibuprofen 600 mg tablet 600 mg PO Q8H PRN pain #20 tabs 03/08/22 lidocaine 5 % topical patch 1 patch topical DAILY #15 ea 03/08/22 cyclobenzaprine 10 mg tablet 10 mg PO Q8H #20 tabs 06/22/22 oxycodone-acetaminophen 5 mg-325 1 tab PO Q6H PRN pain #20 tabs 06/22/22 mg tablet (Percocet) ondansetron 4 mg disintegrating 4 mg PO Q8H 3 days #9 tabs 01/16/23 tablet Allergies Allergy/AdvReac Type Severity Reaction Status Date / Time No Known Allergies Allergy Verified 01/16/23 08:57 Review of Systems Constitutional: Constitutional: Reports no additional constitutional complaints, Denies chills, Denies fever(s) and Denies night sweats Eyes: Eyes: Reports no additional eye complaints, Denies blurry vision, Denies change in vision, Denies diplopia, Denies eye discharge, Denies loss of vision and Denies eye pain ENT: Denies dizziness Cardiovascular: Cardiovascular: Reports no additional cardiovascular complaints, Denies chest pain, Denies lightheadedness, Denies Loss of Consciousness and Denies dyspnea Respiratory: Respiratory: Reports no additional respiratory complaints and Denies dyspnea Gastrointestinal: Gastrointestinal: Reports no additional gastrointestinal complaints, Reports abdominal pain, Denies melena, Denies hematochezia, Denies change in bowel habits, Denies change in stool character, Reports nausea and Denies vomiting Genitourinary: Genitourinary: Reports no additional male genitourinary complaints, Denies hematuria, Denies oliguria, Denies difficulty urinating, Denies dysuria, Denies urinary frequency, Denies urinary hesitancy, Denies urinary incontinence and Denies urinary urgency Musculoskeletal: Musculoskeletal: Reports no additional musculoskeletal complaints, Denies numbness and Denies tingling Neurologic: Denies dizziness, Denies loss of vision, Denies numbness and Denies tingling Psychiatric: Psychiatric: Reports no additional psychiatric complaints Endocrine: Endocrine: Reports no additional endocrine complaints Hematologic/Lymphatic: Hematologic/Lymphatic: Reports no additional hematologic/lymphatic complaints Allergic/Immunologic: Allergic/Immunologic: Reports no additional allerg ic/immunologic complaints PMFSH Past Medical History Attestation statement: The following information was validated with the patient. Source: old records reviewed and nursing notes reviewed Medical History Alcohol abuse HLD (hyperlipidemia) HTN (hypertension) Obesity Pancreatitis Surgical History No pertinent past surgical history Family History Family History Other No family history of coronary artery disease Social History Social History Household Members: Spouse [facility] Do you presently have visiting nurse or other home services: No Alcohol intake: current Alcohol intake frequency: a few times a week Patient Tobacco Use Status: Never used Tobacco Smoked in Last 30 Days: Yes Use of substances other than those prescribed or required for medical reasons: No Substance Use Type: Crack/Cocaine Advance Directives: No Advance Directives Information Provided: Yes service: No Current occupational status: employed Physical Exam ED Vital Signs: Vital Signs - 24 hr 01/16/23 08:54 01/16/23 09:05 Temperature 97.4 F 98.1 F Pulse Rate 87 116 H Respiratory Rate 20 18 Blood Pressure 162/106 H 150/98 H Pulse Oximetry 97 94 Oxygen Delivery Method Room Air Room Air BMI result Body Mass Index 36.8 Const General: cooperative, no acute distress, alert and awake Nutritional Appearance: well nourished Orientation/consciousness: patient oriented x3 Limitations: no limitations HENMT Head: Yes normal to inspection and Yes atraumatic Ears: hearing grossly normal bilaterally and external ears normal General nose exam: Normal external nose present, no nasal discharge noted and no epistaxis Face and sinus: Yes normal facial exam, No abrasion and No laceration Mouth: Normal oral and palatal mucosa present, no drooling and no muffled voice Eyes General: appearance normal, both eyes and all related structures Periorbital: periorbital findings normal Eyelids: Yes eyelids normal Conjunctivae: conjunctivae normal Pupils: Equal, round and reactive pupils present EOM: EOMs intact bilaterally Neck Neck: Yes normal visual inspection, Yes full ROM and Yes no lymphadenopathy Chest Chest palpation & inspection: normal inspection of the chest Resp Effort & Inspection: normal respiratory effort and able to speak in complete sentences Auscultation: clear to auscultation bilaterally Cardio Rate: regular rate Rhythm: regular rhythm GI Inspection: Yes normal to inspection Palpation (GI): Soft to palpation, not firm, Tenderness to palpation present (GI) in the LUQ, no guarding and not rigid Neuro General: patient oriented x3 and moves all extremities Cranial nerves: Yes Equal, round and reactive pupils present Cognition (Neuro): normal cognition Motor exam (neuro): 5/5 motor strength present throughout Sensory Exam: Normal double simultaneous stimulation for sensation Coordination: [id number] test normal Extrem General: Yes normal to inspection, Yes full ROM and Yes capillary refill normal Psych Appearance: grossly normal Mental Status: mental status grossly normal Affect: normal affect Attitude: cooperative Thought process: Normal thought process present Thought content: Normal thought content present Insight: Good insight present (Psych) Medications Administered Discontinued Medications Generic Name Dose Route Start Last Admin Trade Name Freq PRN Reason Stop Dose Admin Sodium Chloride 1,000 mls @ 999 mls/hr 01/16/23 09:15 01/16/23 12:14 Ns IV 01/16/23 10:15 Infused .Q1H1M JAYLA Infusion Iohexol 100 ml 01/16/23 10:44 01/16/23 10:45 Iohexol 350 Mg/Ml 100 Ml Infus..Btl IV 01/16/23 10:45 85 ml ONCE ONE Administration Morphine Sulfate 4 mg 01/16/23 09:07 01/16/23 09:28 Morphine Sulfate 4 Mg/Ml Cartridge IVPUSH 01/16/23 09:08 4 mg ONCE ONE Administration Protocol Ondansetron HCl 4 mg 01/16/23 09:07 01/16/23 09:28 Ondansetron Hcl 4 Mg/2 Ml Vial IVPUSH 01/16/23 09:08 4 mg ONCE ONE Administration Medical Decision Making Medical Decision Making MDM Narrative: Patient is a 47 year old assigned male at with a history of HTN and pancreatitis presenting to the emergency department today with abdominal pain. Patient's physical exam was as noted in the physical exam portion of this chart. Patient's blood work was unremarkable. Patient's EKG was unremarkable. Patient's abdomen/pelvis CT showed no acute process however, it did show a right renal mass. I explained my physical exam findings as well as all test results to the patient. I answered all questions asked by the patient. Patient received IV Morphine, fluids, and Zofran which he stated helped his symptoms significantly. I stressed the importance of the patient taking his medication as prescribed. I stressed the importance of the patient following up with his primary care provider, a care management assistant, and a tour actor/oncologist. I stressed the importance of the patient returning to the emergency department immediately if his symptoms were to worsen or if he were to develop any dizziness, shortness of breath, difficulty breathing, chest pain, blurry vision, loss of vision, nausea, vomiting, abdominal pain, fever, chills, back pain, or any other complaints. Patient verbalized agreement and understanding with this treatment plan and discharge. Differential Diagnosis Differential Diagnoses: The differential diagnosis associated with the presentation includes Abdominal pain Gastric ulcer Gastritis Gastroenteritis Diverticulitis Diverticulosis Ileus Bowel obstruction Colon cancer Pancreatic cancer Pancreatitis Kidney stone Kidney mass Admission/Observation Consideration of admission/observation: Escalation of care including admission/observation considered Patient would have been admitted to the hospital had his work up had any findings where hospital admission was appropriate and his clinical presentation warranted hospital admission. Lab Data MDM Lab Attestation statement: I reviewed the patient's lab results. My interpretation of these studies and their corresponding values is that they are grossly normal. 01/16/23 09:21 01/16/23 09:21 Labs: Lab Results 01/16/23 01/16/23 01/16/23 Range/Units 09:21 09:21 09:21 WBC 9.5 (4.8-10.8) X10*3/uL RBC 4.84 (4.60-5.80) X10*6/uL Hgb 15.7 (14.0-18.0) g/dl Hct 44.8 (42.0-52.0) % MCV 92.6 (80.0-98.0) fL MCH 32.4 (27.0-33.0) pg MCHC 35.0 (31.0-36.0) g/dl RDW 12.8 (11.0-16.0) % Plt Count 174 D (160-400) X10*3/uL MPV 11.0 (9.4-12.4) fL Immature Gran % (Auto) 0.3 (0.0-0.4) % Neut % (Auto) 71.0 (45-73) % Lymph % (Auto) 22.6 (20-40) % [place] % (Auto) 5.0 (2-11) % Eos % (Auto) 0.7 (0-4) % Baso % (Auto) 0.4 (0-2) % Lymph # (Auto) 2.1 (1.2-4.9) X10*3/uL [place] # (Auto) 0.5 (0.1-1.2) X10*3/uL Eos # (Auto) 0.1 (0.0-0.4) X10*3/uL Baso # (Auto) 0.0 (0.0-0.2) X10*3/uL Abs Immat Gran (auto) 0.03 (0.00-0.03) X10*3/uL Absolute Neuts (auto) 6.7 (2.0-8.3) x10*3/uL Absolute Nucleated RBC 0.000 (0.0-0.012) X10*3/uL Nucleated RBC % (auto) 0.0 (0.0-0.2) /100WBC Sodium 139 (135-145) mmol/L Potassium 3.7 (3.3-5.1) mmol/L Chloride 106 (96-108) mmol/L Carbon Dioxide 24 (22-29) mmol/L Anion Gap 13 (12-20) BUN 17 H (9-16) mg/dL Creatinine 1.29 (0.5-1.4) mg/dL Estim Creat Clear Calc 80.6 Estimated GFR 60 Random Glucose 123 H (60-115) mg/dL Calcium 9.2 D (8.4-10.2) mg/dL Magnesium 1.8 (1.6-2.6) mg/dL Total Bilirubin 0.6 (0.0-1.0) mg/dL AST 29 (5-37) U/L ALT 34 (0-40) U/L Alkaline Phosphatase 56 (39-117) U/L Troponin I High Sens < 2.7 (<3.5-35.0) ng/L Total Protein 7.3 (6.5-8.0) g/dL Albumin 3.9 (3.5-5.0) g/dL Lipase 48 (8-78) U/L Urine Color Urine Appearance Urine pH (5.0-9.0) Ur Specific Cobalt (1.005-1.025) Urine Protein (Neg-Trace) mg/dL Urine Glucose (UA) (Negative) mg/dL Urine Ketones (Negative) mg/dL Urine Blood (Negative) Urine Nitrite (Negative) Ur Leukocyte Esterase (Negative) 01/16/23 Range/Units 11:20 WBC (4.8-10.8) X10*3/uL RBC (4.60-5.80) X10*6/uL Hgb (14.0-18.0) g/dl Hct (42.0-52.0) % MCV (80.0-98.0) fL MCH (27.0-33.0) pg MCHC (31.0-36.0) g/dl RDW (11.0-16.0) % Plt Count (160-400) X10*3/uL MPV (9.4-12.4) fL Immature Gran % (Auto) (0.0-0.4) % Neut % (Auto) (45-73) % Lymph % (Auto) (20-40) % [place] % (Auto) (2-11) % Eos % (Auto) (0-4) % Baso % (Auto) (0-2) % Lymph # (Auto) (1.2-4.9) X10*3/uL [place] # (Auto) (0.1-1.2) X10*3/uL Eos # (Auto) (0.0-0.4) X10*3/uL Baso # (Auto) (0.0-0.2) X10*3/uL Abs Immat Gran (auto) (0.00-0.03) X10*3/uL Absolute Neuts (auto) (2.0-8.3) x10*3/uL Absolute Nucleated RBC (0.0-0.012) X10*3/uL Nucleated RBC % (auto) (0.0-0.2) /100WBC Sodium (135-145) mmol/L Potassium (3.3-5.1) mmol/L Chloride (96-108) mmol/L Carbon Dioxide (22-29) mmol/L Anion Gap (12-20) BUN (9-16) mg/dL Creatinine (0.5-1.4) mg/dL Estim Creat Clear Calc Estimated GFR Random Glucose (60-115) mg/dL Calcium (8.4-10.2) mg/dL Magnesium (1.6-2.6) mg/dL Total Bilirubin (0.0-1.0) mg/dL AST (5-37) U/L ALT (0-40) U/L Alkaline Phosphatase (39-117) U/L Troponin I High Sens (<3.5-35.0) ng/L Total Protein (6.5-8.0) g/dL Albumin (3.5-5.0) g/dL Lipase (8-78) U/L Urine Color Yellow Urine Appearance Clear Urine pH 6.0 (5.0-9.0) Ur Specific Cobalt >= 1.030 H (1.005-1.025) Urine Protein Negative (Neg-Trace) mg/dL Urine Glucose (UA) Negative (Negative) mg/dL Urine Ketones Negative (Negative) mg/dL Urine Blood Negative (Negative) Urine Nitrite Negative (Negative) Ur Leukocyte Esterase Negative (Negative) Independent Interpretation I performed an independent interpretation of an: CT Scan Interpretation: My interpretation is in agreement with the radiologist's impression of this imaging study. EXAMINATION: CT ABDOMEN AND PELVIS WITH CONTRAST? CLINICAL INFORMATION: Abdominal pain? COMPARISON: CT abdomen pelvis 06/22/[address] including 02/12/2022 TECHNIQUE: Multidetector volumetric images were obtained from the superior aspect of the liver through the pubic symphysis following administration 85 mL of Omnipaque 350 intravenous contrast. Sagittal and coronal reformatted images were obtained on the technologist's workstation.? Oral contrast: No This CT examination was performed using dose optimization techniques as appropriate, variously including the following: *Automated exposure control *Adjustment of mA and/or kV according to patient size (this includes techniques or standardized protocols for targeted exams where dose is matched to indication/reason for exam; i.e. extremities or head) *Use of iterative reconstruction technique DLP: 639 mGy-cm FINDINGS: LUNG BASES: The visualized lung bases are unremarkable.? LIVER, GALLBLADDER, AND BILIARY TREE: The liver is enlarged measuring 18.8 cm cephalocaudad dimension. Liver attenuation is decreased better demonstrated on the 06/22/[address] scan consistent with hepatic steatosis. No focal hepatic lesion or biliary ductal dilatation is present. The gallbladder is unremarkable with no evidence of radiopaque gallstones, gallbladder wall thickening, or obvious pericholecystic inflammatory changes.? PANCREAS: Unremarkable. Previously seen changes of pancreatitis on exams have resolved. SPLEEN: Unremarkable.? ADRENAL GLANDS: Unremarkable.? KIDNEYS AND URETERS: The kidneys are normal in size, shape, and attenuation. There is a? 2.6 cm hypodensity seen in the right kidney that measures slightly greater than water density and can no longer be called a benign simple cyst. Some enhancing elements may be seen with Hounsfield unit attenuations as high as 47 Hounsfield units on this postcontrast CT scan only. No other renal masses. No hydronephrosis, hydroureter, or calculi seen. No perinephric stranding. ? BLADDER: Unremarkable.? GASTROINTESTINAL TRACT: The small and large bowel are unremarkable. The appendix is unremarkable.? ABDOMINAL WALL: There is a small periumbilical hernia seen containing only fat.? LYMPH NODES: There are some small shotty retroperitoneal lymph nodes seen without adenopathy. VASCULAR: Unremarkable. PELVIC VISCERA: Mild BPH. Normal-appearing seminal vesicles.? OSSEOUS STRUCTURES: Unremarkable.? CT/CT abdomen pelvis w IV con IMPRESSION: 1.? A cause for the patient's abdominal pain has not been found. 2.? There is a right renal mass present which can no longer be called a Bosniak class I simple renal cyst. Dedicated pre and postcontrast thin section renal CT is recommended for further evaluation. Precontrast images should also be within slices to better administrative law judge enhancement on postcontrast imaging. 3.? Incidental note made of an enlarged fatty liver, small periumbilical hernia containing only fat and mild BPH. ? Fleischner guidelines were followed. Dictated By: Tony Greer MD Signed By: Electronically signed by Tony Greer MD 01/16/23 1149 Radiology Impression Discussion of test interpretation with radiology: I have reviewed the radiologist's reading. External Record Review External record reviewed: Other (reviewed previous ED visits and previous CT abd/pelvis) Chronic Conditions Patient?s care impacted by: Hypertension Critical Care Time Critical Care Time Critical Care Time: Yes Total Critical Care Time: 30 Attestation: I spent 30 minutes of Critical Care Time with this patient. This does not includ e time spent on separately reported billable procedures. Discharge Plan Discharge Clinical Impression: Abdominal pain, Kidney mass Patient Disposition: Home, Self-Care Instructions: Abdominal Pain (ED) Additional Instructions: Your CT scan of the abdomen/pelvis showed a mass on the right kidney that needs follow up. Follow up with your primary care provider, a urologist, and a tour actor/oncologist. Return to the emergency department immediately if your symptoms worsen or if you develop any dizziness, shortness of breath, difficulty breathing, chest pain, blurry vision, loss of vision, nausea, vomiting, abdominal pain, fever, chills, back pain, or any other complaints. Prescriptions: New ondansetron 4 mg tablet,disintegrating 4 mg PO Q8H 3 Days Qty: 9 0RF No Action cyclobenzaprine 10 mg tablet 10 mg PO TID PRN (Reason: muscle spasm) Qty: 14 0RF ibuprofen 600 mg tablet 600 mg PO Q8H PRN (Reason: pain) Qty: 20 0RF lidocaine 5 % adhesive patch,medicated 1 patch topical DAILY Qty: 15 0RF Rx Instructions: leave on most painful area for up to 12 hrs oxycodone-acetaminophen [Percocet] 5-325 mg tablet 1 tab PO Q6H PRN (Reason: pain) Qty: 20 0RF Rx Instructions: Partial Fill upon patient request. cyclobenzaprine 10 mg tablet 10 mg PO Q8H Qty: 20 0RF amlodipine 10 mg tablet 1 tab PO DAILY omeprazole 20 mg capsule,delayed release(DR/EC) 1 cap PO DAILY albuterol sulfate 90 mcg/actuation HFA aerosol inhaler 2 puff PO Q4H PRN (Reason: Dyspnea) fluticasone propionate [Flovent HFA] 110 mcg/actuation HFA aerosol inhaler 1 puff PO BID hydroxyzine HCl 25 mg tablet 1 tab PO Q8H PRN (Reason: anxiety) gabapentin 300 mg capsule 1 cap PO BID atorvastatin 80 mg Tablet 80 mg PO BEDTIME cyanocobalamin (vitamin B-12) 1,000 mcg Tablet 1,000 mcg PO DAILY folic acid 1 mg Tablet 1 mg PO DAILY oxycodone 5 mg Tablet 5 mg PO Q6-8H PRN (Reason: Pain, Severe (Pain Scale 7-10)) Qty: 15 0RF Rx Instructions: Partial Fill upon patient request. ondansetron 4 mg tablet,disintegrating 4 mg PO Q8H PRN (Reason: nausea and vomiting) Qty: 14 0RF Referrals: [facility] [place] Group] (Call to establish and follow up with a tour actor / oncologist. ) [facility] [Provider Group] (Call [phone] to establish and follow up with a care management assistant. ) Kervin Foss III, MD [Primary Care Provider] - [facility] [Provider Group] (Call to establish and follow up with a urologist. ) Stand Alone Forms: Work/School Release Interventions: ED Discharge Assessment Last Done: 01/16/23 12:34 Discharge Date/Time: 01/16/23 12:35 Print Language: Anguillan
[2023-01-16 09:05] VITALS: BP 150/98; PULSE 116; RESP 18; TEMP 36.7; O2SAT 94
--- NOTE | 2023-01-16 09:09 | PC.NURSE ---
Alert and oriented. States that has been having left sided abdominal pain. States this has happened in the past after a heavy republican weekend and was diagnosed with pancreatitis. States pain started last week around sat and was throwing up sat and . States has been having diarrhea for the past few days. Denies chest pain or sob. states pain has worsened over the past few days and is currently a 8/10. States has been nauseous and unable to eat or drink much for the past few days.
[2023-01-16 09:57] LABS: Alanine Aminotransferase 34 U/L (0-40); Albumin Level 3.9 g/dL (3.5-5.0); Alkaline Phosphatase 56 U/L (39-117); Anion Gap 13 (12-20); Aspartate Amino Transferase 29 U/L (5-37); Bilirubin Total 0.6 mg/dL (0.0-1.0); Blood Urea Nitrogen 17 mg/dL (9-16); Calcium 9.2 mg/dL (8.4-10.2); Carbon Dioxide 24 mmol/L (22-29); Chloride 106 mmol/L (96-108); Creatinine Clr Calc Pharmacy 80.6; Estimated Glomerular Filt Rate 60; Glucose Random 123 mg/dL (60-115); Lipase 48 U/L (8-78); Magnesium 1.8 mg/dL (1.6-2.6); Potassium 3.7 mmol/L (3.3-5.1); Sodium 139 mmol/L (135-145); Total Protein 7.3 g/dL (6.5-8.0)
--- NOTE | 2023-01-16 10:08 | PC.NURSE ---
Reports feeling better after pain medication. IV fluids running as ordered.
--- NOTE | 2023-01-16 12:35 | PC.NURSE ---
Reviewed discharge plan with patient who verbalized understanding to follow up with oncology/ renal.
== END 2023-01-16 12:35 | disposition home or self-care (01) ==
PROVIDERS: Physician Assistant Medical; Emergency Provider Emergency Medicine; PCP Internal Medicine
DX: R10.9 Unspecified abdominal pain (principal); N28.89 Other specified disorders of kidney and ureter; K76.0 Fatty (change of) liver, not elsewhere classified; K42.9 Umbilical hernia without obstruction or gangrene; I10 Essential (primary) hypertension; E78.5 Hyperlipidemia, unspecified; F14.10 Cocaine abuse, uncomplicated; E66.9 Obesity, unspecified; Z68.36 Body mass index [BMI] 36.0-36.9, adult; Z79.899 Other long term (current) drug therapy
CPT/HCPCS: 36415; 74177; 80053; 81003; 83690; 83735; 84484; 85025; 93005; 96361; 96374; 96375; 99284; 99285; J2270; J2405; Q9967

== ENCOUNTER 2023-01-31 09:31 | Outpatient (AMB) | payer OTHER, SELFPAY ==
--- NOTE | 2023-01-31 07:43 | A.OFFVIS_ITS ---
Intake Intake Visit Reasons: ER follow up Intake Note: NEW Patient presents today to established treatment for ER Referral for Kidney Mass: Lower back Pain Scale 7.5 Meds- None Allergies to Antibiotic- None Blood Thinner- None Perinatal Technician Required: No Accompanied by: Self / Same As Patient Allergies No Known Allergies Allergy (Verified 01/31/23 09:46) HPI HPI Comments History of Present Illness Details Jeniffer is a 47-year-old male who presents to the clinic today for further evaluation of a complex renal cyst. 01/31/23-- The patient is here today for further evaluation of a complex renal cyst. He was recently seen in the ED for abdominal pain. He also reports nausea and was throwing up for 2 weeks at work. He states he thought the symptoms was from his pancreas acting up again. He states that he was told that there was a renal mass noted on the CAT scan that was done on 01/16/23. He states that in June he previously was seen in the ER and at that time he was told that he had a kidney cyst. He has a history of pancreatitis and history of alcoholic disorder. He had a CT scan of the abdomen with contrast which noted that there was a 2.6 cm hypodensity with Hounsfield units measuring slightly greater than water density on a post contrast study. He denies any family history of prostate cancer. He denies any urinary symptoms. I discussed that further imaging is necessary to clarify whether the cystic lesion could be considered benign versus a lesion that may require a further therapy. Evaluation today ? UA ? blood negative. Leukocytes negative. Plan: I am going to obtain an MRI renal mass protocol. Follow up in 7 weeks to review the MRI results. In regard to the history of abdominal pain and history of pancreatitis, he states that he will be following with his PCP. [facility] Medical History Alcohol abuse HLD (hyperlipidemia) HTN (hypertension) Obesity Pancreatitis Surgical History No pertinent past surgical history Family History Other No family history of coronary artery disease Social History Household Members: Spouse Housing: Condominium Do you presently have visiting nurse or other home services: No Alcohol intake: current Alcohol intake frequency: a few times a week Patient Tobacco Use Status: Never used Tobacco Substance Use Type: Crack/Cocaine service: No Current occupational status: employed Review of Systems Const All systems reviewed & are unremarkable except as noted in HPI and below Reports no additional complaints Eyes Reports no additional complaints ENT Reports no additional complaints Card Denies dyspnea Resp Denies cough and Denies dyspnea GI Reports no additional complaints Musc Reports no additional complaints Skin/Breast Denies rash and Denies unusual bruising Neuro Reports no additional complaints Psych Reports no additional complaints Endo Reports no additional complaints Morgan/Lymph Reports no additional complaints Aller/Immun Reports no additional complaints Physical Exam Const General: healthy appearing, no acute distress and well developed Orientation/consciousness: patient oriented x3 HEENT Head: Yes normocephalic and Yes atraumatic Eyes Conjunctivae: conjunctivae normal Neck Neck: Yes normal visual inspection Chest Chest palpation & inspection: normal inspection of the chest Resp Effort & Inspection: normal respiratory effort Cardio Rate: regular rate GI Inspection: Yes normal to inspection Neuro General: patient oriented x3 Extrem General: No pedal edema Psych Appearance: grossly normal Affect: normal affect Office Procedures Post Void Residual Post Residual Void Post Void Residual (PVR): 11 [id number] Void Residual by ultrasound Results AMB Urinalysis, Automated UA Leukoctes 0 Tiara/uL Last Edit by DINA Batista on 01/31/23 09:54 UA Nitrite Negative Last Edit by DINA Batista on 01/31/23 09:54 UA Urobilinogen 0.2 mg/dL Last Edit by DINA Batista on 01/31/23 09:5 4 UA Protein 0 mg/dL Last Edit by DINA Batista on 01/31/23 09:54 UA pH 6.0 Last Edit by DINA Batista on 01/31/23 09:54 UA Blood 0 Ernesto/uL Last Edit by DINA Batista on 01/31/23 09:54 UA Specific Keeling 1.020 Last Edit by DINA Batista on 01/31/23 09: 54 UA Ketone Negative Last Edit by DINA Batista on 01/31/23 09:54 UA Bilirubin 0 mg/dL Last Edit by DINA Batista on 01/31/23 09:54 UA Glucose 0 mg/dL Last Edit by DINA Batista on 01/31/23 09:54 Results Reviewed Results Reviewed: Laboratory Last Values Urine pH (Auto) 6.0 01/31/23 09:37 Specific Keeling (Auto) 1.020 01/31/23 09:37 Urine Protein (Auto) 0 mg/dL 01/31/23 09:37 Glucose (UA)(Auto) 0 mg/dL 01/31/23 09:37 Urine Ketones (Auto) Negative 01/31/23 09:37 Urine Blood (Auto) 0 Ernesto/uL 01/31/23 09:37 Urine Nitrite (Auto) Negative 01/31/23 09:37 Urine Bilirubin (Auto) 0 mg/dL 01/31/23 09:37 Urine Urobilinogen (Auto) 0.2 mg/dL 01/31/23 09:37 Leukocyte Esterase (Auto) 0 Tiara/uL 01/31/23 09:37 Assessment & Plan Assessment & Plan (1) Complex renal cyst: Code(s): N28.1 - Cyst of kidney, acquired (2) Abdominal pain: Code(s): R10.9 - Unspecified abdominal pain Plan I am going to obtain an MRI renal mass protocol. Follow up in 7 weeks to review the MRI results. In regard to the history of abdominal pain and history of pancreatitis, he states that he will be following with his PCP. Orders: Orders AMB Urinalysis Automated Today Z13.9 - Encounter for screening, unspecified AMB Post Void Residual by ultrasound Today N39.8 - Other specified disorders of urinary system Patient Instructions: The patient had an opportunity to ask questions regarding treatment plan. All questions were answered. Imaging, Laboratory studies and physical exam results were discussed and reviewed in detail. No major barriers to understanding were identified. The patient expressed understanding and agreement with the above treatment plan. The patient is aware they should contact our office by phone for worsening of their current condition or the appearance of new symptoms. Compliance is encouraged with any medications and followup testing that is ordered. It is a privilege to be allowed the opportunity to participate in the urologic care of your patient. If you have any questions or concerns regarding treatment for the above conditions please do not hesitate to contact me. The office telephone contact is [phone]. This note is constructed in part using voice recognition software. While every effort has been made to ensure accuracy [employer] de[employer] errors may have been included. Yours sincerely, Ten Gibbons MD Coding Level of Care Code New Pt Level 4 (72947) Diagnoses Complex renal cyst N28.1 Abdominal pain R10.9 CPT Codes Post Residual Void - PVR CPT Code: 49824-Qhki Void Residual by ultrasound ([id number])
== END 2023-01-31 10:14 | disposition home or self-care (01) ==
PROVIDERS: PCP Internal Medicine; Visit Provider Urology
DX: N28.1 Cyst of kidney, acquired (principal); R10.9 Unspecified abdominal pain
CPT/HCPCS: 99204

== ENCOUNTER → 2023-01-31 09:31 | Outpatient (BNVA) | payer OTHER, SELFPAY | PROVIDERS: PCP Internal Medicine; Visit Provider Urology | DX: N28.1 Cyst of kidney, acquired (principal); R10.9 Unspecified abdominal pain; F10.21 Alcohol dependence, in remission; F14.20 Cocaine dependence, uncomplicated | CPT/HCPCS: 51798 ==

== ENCOUNTER 2023-05-01 13:57 | Outpatient (AMB) | payer OTHER, SELFPAY ==
--- NOTE | 2023-05-01 13:59 | A.OFFVIS_ITS ---
Intake Intake Visit Reasons: 7w/MRI Intake Note: Patient presents today for a follow-up on MRI Results: MRI booked on 04/30/2023 NO SHOW Meds- None Allergies to Antibiotic- No Known Allergies Blood Thinner- None Microwave Technician Required: No Accompanied by: Significant Other Allergies No Known Allergies Allergy (Verified 05/01/23 14:08) HPI HPI Comments History of Present Illness Details Sherice is a 47-year-old male who presents today to the office for a follow-up. 05/01/23? He was last seen by me on 01/31/23 for abdominal pain and complex renal cyst. MRI was ordered for further evaluation He was scheduled to review the MRI results. He denies any family history of prostate cancer. He denies any urinary symptoms. Review of charts: 01/16/23.--CT scan of the abdomen with con trast which noted that there was a 2.6 cm hypodensity with Hounsfield units measuring slightly greater than water density on a post contrast study. 05/01/23: Plan: Follow-up Tele-health in one month to review the MRI results. [facility] Medical History Alcohol abuse HLD (hyperlipidemia) HTN (hypertension) Obesity Pancreatitis Surgical History No pertinent past surgical history Family History Other No family history of coronary artery disease Social History Household Members: Spouse Housing: Condominium Do you presently have visiting nurse or other home services: No Alcohol intake: current Alcohol intake frequency: a few times a week Patient Tobacco Use Status: Never used Tobacco Substance Use Type: Crack/Cocaine service: No Current occupational status: employed Review of Systems Const All systems reviewed & are unremarkable except as noted in HPI and below Reports no additional complaints Eyes Reports no additional complaints ENT Reports no additional complaints Card Denies dyspnea Resp Denies cough and Denies dyspnea GI Reports no additional complaints Musc Reports no additional complaints Skin/Breast Denies rash and Denies unusual bruising Neuro Reports no additional complaints Psych Reports no additional complaints Endo Reports no additional complaints Morgan/Lymph Reports no additional complaints Aller/Immun Reports no additional complaints Assessment & Plan Assessment & Plan (1) Complex renal cyst: Code(s): N28.1 - Cyst of kidney, acquired Plan Follow-up Tele-health in one month to review the MRI results. Patient Instructions: The patient had an opportunity to ask questions regarding treatment plan. All questions were answered. Imaging, Laboratory studies and physical exam results were discussed and reviewed in detail. No major barriers to understanding were identified. The patient expressed understanding and agreement with the above treatment plan.? ? ? The patient is aware they should contact our office by phone for worsening of their current condition or the appearance of new symptoms. Compliance is encouraged with any medications and followup testing that is ordered.? ? ? It is a privilege to be allowed the opportunity to participate in the urologic care of your patient. If you have any questions or concerns regarding treatment for the above conditions please do not hesitate to contact me. The office telephone contact is [phone].? ? ? This note is constructed in part using voice recognition software. While every effort has been made to ensure accuracy community facilitator errors may have been included.? ? ? Yours sincerely,? ? ? Ten Gibbons MD? ? Coding Level of Care Code Est Pt Level 3 (26122) Diagnoses Complex renal cyst N28.1
== END 2023-05-01 14:31 | disposition home or self-care (01) ==
PROVIDERS: PCP Internal Medicine; Visit Provider Urology
DX: N28.1 Cyst of kidney, acquired (principal)
CPT/HCPCS: 99213

== ENCOUNTER → 2023-05-01 13:57 | Outpatient (BNVA) | payer OTHER, SELFPAY | PROVIDERS: PCP Internal Medicine; Visit Provider Urology ==

== ENCOUNTER 2023-06-10 11:00 | Outpatient (REF) | payer OTHER, SELFPAY ==
--- NOTE | ~2023-06-10 | MR_ITS ---
EXAMINATION: MRI ABDOMEN WITH AND WITHOUT CONTRAST CLINICAL INFORMATION: Reason for Exam COMPARISON: 01/16/2023 TECHNIQUE: Multiple routine MRI sequences through the abdomen were obtained on a high-field 1.5Tesla MRI. Pre-and postcontrast images with 10 mL of Gadavist intravenous contrast were obtained. This included a dynamic contrast-enhanced technique. Note the patient was anxious and claustrophobic and examination was tailored to evaluate the kidneys specifically. Even with this reduced scan time, the images are degraded by underlying patient motion. FINDINGS: Lung bases: The visualized lung bases are unremarkable. Liver: The visualized portion of the liver is normal in size, shape, and signal. No suspicious focal hepatic lesions seen. Specifically no suspicious arterial phase enhancing lesions or suspicious washout of contrast on later phases. No biliary ductal dilatation. Gallbladder: Gallbladder is unremarkable. No suspicious gallstones or filling defects. No gallbladder wall thickening or pericholecystic inflammatory changes. Pancreas: Pancreas is homogeneous in signal. No pancreatic ductal dilatation or obstruction. No peripancreatic inflammatory changes or fluid. Spleen: Unremarkable Adrenals: Unremarkable Kidneys: Left: The left kidney is normal in size, shape, and signal measuring 11 cm in length. No suspicious renal mass lesion seen. No hydronephrosis or perinephric edema. Right: The contralateral right kidney measures 11.7 cm in length. There is a focal region of cortical thinning/scarring along the posterolateral mid to lower pole. There is suggestion of a small 1.2 cm T2 bright cyst or more likely calyceal diverticulum in this location. Calyceal diverticulum is favored as there is dense gadolinium contrast seen within this structure on the most delayed images, similar to other areas of the collecting system bilaterally. Other: No bulky adenopathy MR/MR abdomen wo/w con IMPRESSION: There is a focal region of cortical thinning/scarring along the posterolateral mid to lower pole of the right kidney. There is suggestion of a small T2 bright cyst or more likely calyceal diverticulum in this location. Calyceal diverticulum is favored as there is dense gadolinium contrast seen within this structure on the most delayed images, similar to other areas of the collecting system bilaterally.
[2023-06-10] MEDS: gadobutroL 10 ML VIAL IVPUSH (11:41)
== END 2023-06-10 11:01 | disposition home or self-care (01) ==
LOC: HO.MRI 11:00
PROVIDERS: PCP Internal Medicine; Visit Provider Urology
DX: N28.1 Cyst of kidney, acquired (principal)
CPT/HCPCS: 74183; A9585

== ENCOUNTER 2023-06-20 08:17 | Outpatient (AMB) | payer OTHER, SELFPAY ==
--- NOTE | 2023-06-20 08:18 | A.OFFVIS_ITS ---
Intake Intake Visit Reasons: 1m/MRI Intake Note: Patient presents today for a follow-up on MRI Results: Meds- None Allergies to Antibiotic- No Known Allergies Blood Thinner- None Straddle Buggy Operator Required: No Accompanied by: Significant Other Allergies No Known Allergies Allergy (Verified 06/20/23 08:20) HPI HPI Comments History of Present Illness Details Sherice is a 48-year-old male who presents today via Tele-health for a follow-up. 06/20/2023? He is followed today for MRI results. He was last seen by me on 05/01/2023 for abdominal pain and complex renal cyst. I reviewed MRI 06/10/23- Right kidney--focal region of cortical thinning/scarring along the posterolateral mid to lower pole of the right kidney. There is suggestion of a small T2 bright cyst or more likely calyceal diverticulum in this location. Calyceal diverticulum is favored. Review of charts: Last visit: 05/01/23? He was last seen by me on 01/31/23 for abdominal pain and complex renal cyst. MRI was ordered for further evaluation He was scheduled to review the MRI results. He denies any family history of prostate cancer. He denies any urinary symptoms. Review of charts: 01/16/23.--CT scan of the abdomen with con trast which noted that there was a 2.6 cm hypodensity with Hounsfield units measuring slightly greater than water density on a post contrast study. 05/01/23: Plan: Follow-up Tele-health in one month to review the MRI results. 06/20/2023: Plan: [facility] Medical History Alcohol abuse HLD (hyperlipidemia) HTN (hypertension) Obesity Pancreatitis Surgical History No pertinent past surgical history Family History Other No family history of coronary artery disease Social History Household Members: Spouse Housing: Condominium Do you presently have visiting nurse or other home services: No Alcohol intake: current Alcohol intake frequency: a few times a week Comment: refuses alarms Patient Tobacco Use Status: Never used Tobacco Substance Use Type: Crack/Cocaine service: No Current occupational status: employed Results Reviewed Results Reviewed: Date of Service: 06/10/23 EXAMINATION: MRI ABDOMEN WITH AND WITHOUT CONTRAST CLINICAL INFORMATION: Reason for Exam COMPARISON: 01/16/2023 FINDINGS: Lung bases: The visualized lung bases are unremarkable. Liver: The visualized portion of the liver is normal in size, shape, and signal. No suspicious focal hepatic lesions seen. Specifically no suspicious arterial phase enhancing lesions or suspicious washout of contrast on later phases. No biliary ductal dilatation. Gallbladder: Gallbladder is unremarkable. No suspicious gallstones or filling defects. No gallbladder wall thickening or pericholecystic inflammatory changes. Pancreas: Pancreas is homogeneous in signal. No pancreatic ductal dilatation or obstruction. No peripancreatic inflammatory changes or fluid. Spleen: Unremarkable Adrenals: Unremarkable Kidneys: Left: The left kidney is normal in size, shape, and signal measuring 11 cm in length. No suspicious renal mass lesion seen. No hydronephrosis or perinephric edema. Right: The contralateral right kidney measures 11.7 cm in length. There is a focal region of cortical thinning/scarring along the posterolateral mid to lower pole. There is suggestion of a small 1.2 cm T2 bright cyst or more likely calyceal diverticulum in this location. Calyceal diverticulum is favored as there is dense gadolinium contrast seen within this structure on the most delayed images, similar to other areas of the collecting system bilaterally. Other: No bulky adenopathy IMPRESSION: There is a focal region of cortical thinning/scarring along the posterolateral mid to lower pole of the right kidney. There is suggestion of a small T2 bright cyst or more likely calyceal diverticulum in this location. Calyceal diverticulum is favored as there is dense gadolinium contrast seen within this structure on the most delayed images, similar to other areas of the collecting system bilaterally. Assessment & Plan Assessment & Plan Patient Instructions: The patient had an opportunity to ask questions regarding treatment plan. All questions were answered. Imaging, Laboratory studies and physical exam results were discussed and reviewed in detail. No major barriers to understanding were identified. The patient expressed understanding and agreement with the above treatment plan. The patient is aware they should contact our office by phone for worsening of their current condition or the appearance of new symptoms. Compliance is encouraged with any medications and followup testing that is ordered. It is a privilege to be allowed the opportunity to participate in the urologic care of your patient. If you have any questions or concerns regarding treatment for the above conditions please do not hesitate to contact me. The office telephone contact is [phone]. This note is constructed in part using voice recognition software. While every effort has been made to ensure accuracy fire department battalion chief errors may have been included. Yours sincerely, Ten Gibbons MD Coding
--- NOTE | 2023-06-20 09:08 | MHC.OFFVIS ---
Intake Intake Visit Reasons: 1m/MRI Allergies No Known Allergies Allergy (Verified 06/20/23 08:20) HPI HPI Comments History of Present Illness Details Sherice is a 48-year-old male who presents today via Tele-health for a follow-up. 06/20/2023? He is followed today for MRI results. He was last seen by me on 05/01/2023 for abdominal pain and complex renal cyst. I reviewed MRI 06/10/23--Right kidney- focal region of cortical thinning/scarring along the posterolateral mid to lower pole of the right kidney. There is suggestion of a small T2 bright cyst or more likely calyceal diverticulum in this location. Calyceal diverticulum is favored. Review of charts: Last visit: 05/01/23? He was last seen by me on 01/31/23 for abdominal pain and complex renal cyst. MRI was ordered for further evaluation 01/16/23.--CT scan of the abdomen with contrast which noted that there was a 2.6 cm hypodensity with Hounsfield units measuring slightly greater than water density on a post contrast study. 06/20/2023: Plan: Right kidney simple cyst versus calyceal diverticulum. None of which requires follow-up. Follow-up prn. [facility] Medical History Alcohol abuse HLD (hyperlipidemia) HTN (hypertension) Obesity Pancreatitis Surgical History No pertinent past surgical history Family History Other No family history of coronary artery disease Social History Household Members: Spouse Housing: Condominium Do you presently have visiting nurse or other home services: No Alcohol intake: current Alcohol intake frequency: a few times a week Comment: refuses alarms Patient Tobacco Use Status: Never used Tobacco Substance Use Type: Crack/Cocaine service: No Current occupational status: employed Results Reviewed Results Reviewed: Date of Service: 06/10/23 EXAMINATION: MRI ABDOMEN WITH AND WITHOUT CONTRAST CLINICAL INFORMATION: Reason for Exam COMPARISON: 01/16/2023 FINDINGS: Lung bases: The visualized lung bases are unremarkable. Liver: The visualized portion of the liver is normal in size, shape, and signal. No suspicious focal hepatic lesions seen. Specifically no suspicious arterial phase enhancing lesions or suspicious washout of contrast on later phases. No biliary ductal dilatation. Gallbladder: Gallbladder is unremarkable. No suspicious gallstones or filling defects. No gallbladder wall thickening or pericholecystic inflammatory changes. Pancreas: Pancreas is homogeneous in signal. No pancreatic ductal dilatation or obstruction. No peripancreatic inflammatory changes or fluid. Spleen: Unremarkable Adrenals: Unremarkable Kidneys: Left: The left kidney is normal in size, shape, and signal measuring 11 cm in length. No suspicious renal mass lesion seen. No hydronephrosis or perinephric edema. Right: The contralateral right kidney measures 11.7 cm in length. There is a focal region of cortical thinning/scarring along the posterolateral mid to lower pole. There is suggestion of a small 1.2 cm T2 bright cyst or more likely calyceal diverticulum in this location. Calyceal diverticulum is favored as there is dense gadolinium contrast seen within this structure on the most delayed images, similar to other areas of the collecting system bilaterally. Other: No bulky adenopathy IMPRESSION: There is a focal region of cortical thinning/scarring along the posterolateral mid to lower pole of the right kidney. There is suggestion of a small T2 bright cyst or more likely calyceal diverticulum in this location. Calyceal diverticulum is favored as there is dense gadolinium contrast seen within this structure on the most delayed images, similar to other areas of the collecting system bilaterally. 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 None of which requires follow-up. Follow-up prn. Patient Instructions: The patient had an opportunity to ask questions regarding treatment plan. All questions were answered. Imaging, Laboratory studies and physical exam results were discussed and reviewed in detail. No major barriers to understanding were identified. The patient expressed understanding and agreement with the above treatment plan. The patient is aware they should contact our office by phone for worsening of their current condition or the appearance of new symptoms. Compliance is encouraged with any medications and followup testing that is ordered. It is a privilege to be allowed the opportunity to participate in the urologic care of your patient. If you have any questions or concerns regarding treatment for the above conditions please do not hesitate to contact me. The office telephone contact is [phone]. This note is constructed in part using voice recognition software. While every effort has been made to ensure accuracy rn chronic errors may have been included. Yours sincerely, Ten Gibbons MD Telehealth Telehealth Location of provider rendering services: practice address Location of patient: address on file Patient Identification confirmed using: Name, : Yes Telehealth method: voice only Patient verbally consented to treatment: Yes Patient verbally consented to billing insurance company: Yes Patient informed of any privacy concerns related to visit: Yes Minutes spent on Phone/Video with Pt.: 15 Coding Level of Care Code Tele Est Pt Level 3 (09458) Diagnoses Simple renal cyst N28.1 Calyceal diverticulum of kidney N28.89
== END 2023-06-20 10:22 | disposition home or self-care (01) ==
LOC: HO.HUSH 08:17
PROVIDERS: PCP Internal Medicine; Visit Provider Urology
DX: N28.1 Cyst of kidney, acquired (principal); N28.89 Other specified disorders of kidney and ureter
CPT/HCPCS: 99213

== ENCOUNTER → 2023-06-20 08:17 | Outpatient (BNVA) | payer OTHER, SELFPAY | PROVIDERS: PCP Internal Medicine; Visit Provider Urology ==

== ENCOUNTER 2023-12-01 14:28 | Inpatient (IN) | payer OTHER, SELFPAY ==
--- NOTE | ~2023-12-01 | CT_ITS ---
EXAMINATION: CT ABDOMEN AND PELVIS WITH CONTRAST CLINICAL INFORMATION: Acute pancreatitis COMPARISON: MR abdomen 06/10/2023, CT abdomen/pelvis 01/16/2023 TECHNIQUE: Multidetector volumetric images were obtained from the superior aspect of the liver through the pubic symphysis following administration 85 mL of Omnipaque 350 intravenous contrast. Sagittal and coronal reformatted images were obtained on the technologist's workstation. Oral contrast: No This CT examination was performed using dose optimization techniques as appropriate, variously including the following: *Automated exposure control *Adjustment of mA and/or kV according to patient size (this includes techniques or standardized protocols for targeted exams where dose is matched to indication/reason for exam; i.e. extremities or head) *Use of iterative reconstruction technique DLP: 782 mGy-cm FINDINGS: LUNG BASES: The visualized lung bases are unremarkable. LIVER, GALLBLADDER, AND BILIARY TREE: The liver is normal in size, shape, and attenuation. No focal hepatic lesion or biliary ductal dilatation is present. The gallbladder is unremarkable with no evidence of radiopaque gallstones, gallbladder wall thickening, or obvious pericholecystic inflammatory changes. PANCREAS: The pancreas is diffusely edematous with surrounding stranding involving the body and tail. No organized fluid collection. No pancreatic duct dilation. SPLEEN: Unremarkable. ADRENAL GLANDS: Unremarkable. KIDNEYS AND URETERS: Right renal calyceal diverticulum The kidneys are normal in size, shape, and attenuation. No hydronephrosis, hydroureter, or calculi seen. No perinephric stranding. BLADDER: Unremarkable. GASTROINTESTINAL TRACT: The small and large bowel are unremarkable. Normal appendix. ABDOMINAL WALL: Small fat-containing umbilical hernia. LYMPH NODES: Aortocaval and eliecer hepatis lymphadenopathy. VASCULAR: Unremarkable. PELVIC VISCERA: Normal CT appearance of the prostate and seminal vesicles. OSSEOUS STRUCTURES: Unremarkable. CT/CT abdomen pelvis w IV con IMPRESSION: 1. The pancreas is diffusely edematous with surrounding stranding involving the body and tail. Findings are consistent with provided history of acute pancreatitis. No organized fluid collection. 2. Aortocaval and eliecer hepatis lymphadenopathy, likely reactive. Fleischner guidelines were followed.
--- NOTE | 2023-12-01 14:30 | ED_ITS ---
HPI - Abdominal Pain General Chief Complaint: Abdominal Pain Stated Complaint: abdominal pain Related Data Home Medications ?Medication ?Instructions ?Recorded ?Confirmed albuterol sulfate 90 mcg/actuation 2 puff PO Q4H PRN Dyspnea 09/23/21 02/12/22 aerosol inhaler amlodipine 10 mg tablet 1 tab PO DAILY 09/23/21 02/12/22 fluticasone propionate 110 1 puff PO BID 09/23/21 02/12/22 mcg/actuation HFA aerosol inhaler (Flovent HFA) hydroxyzine HCl 25 mg tablet 1 tab PO Q8H PRN anxiety 09/23/21 02/12/22 omeprazole 20 mg capsule,delayed 1 cap PO DAILY 09/23/21 02/12/22 release atorvastatin 80 mg tablet 80 mg PO BEDTIME 02/12/22 02/12/22 cyanocobalamin (vitamin B-12) 1,000 mcg PO DAILY 02/12/22 02/12/22 1,000 mcg tablet folic acid 1 mg tablet 1 mg PO DAILY 02/12/22 02/12/22 gabapentin 300 mg capsule 1 cap PO BID 02/12/22 02/12/22 lisinopril 10 mg tablet 10 mg PO DAILY 06/20/23 Previous Rx's ?Medication ?Instructions ?Recorded ondansetron 4 mg disintegrating 4 mg PO Q8H PRN nausea and 02/23/22 tablet vomiting #14 tabs ibuprofen 600 mg tablet 600 mg PO Q8H PRN pain #20 tabs 03/08/22 lidocaine 5 % topical patch 1 patch topical DAILY #15 ea 03/08/22 cyclobenzaprine 10 mg tablet 10 mg PO Q8H #20 tabs 06/22/22 Allergies Allergy/AdvReac Type Severity Reaction Status Date / Time No Known Allergies Allergy Verified 12/01/23 14:32 REPLACED BY [facility] Past Medical History Medical History Alcohol abuse HLD (hyperlipidemia) HTN (hypertension) Obesity Pancreatitis Surgical History No pertinent past surgical history Family History Family History Other No family history of coronary artery disease Social History Social History Household Members: Spouse Housing: Condominium Do you presently have visiting nurse or other home services: No Alcohol intake: current Alcohol intake frequency: a few times a week Comment: refuses alarms Patient Tobacco Use Status: Never used Tobacco Substance Use Type: Crack/Cocaine service: No Current occupational status: employed Physical Exam ED Vital Signs: Vital Signs - 24 hr 12/01/23 14:31 Temperature 97.5 F Pulse Rate 91 Respiratory Rate 22 H Blood Pressure 185/120 H Pulse Oximetry 100 Oxygen Delivery Method Room Air BMI result Body Mass Index 39.1 Course Course Course Narrative: This is an RME performed by Rashi Wang CNP: Additional HPI, ROS, PE not included below will be deferred to primary provider. Patient is a 48-year-old male who presents to the emergency department for evaluation of severe L ABD pain, nausea, vomiting, sweating, diarrhea with sudden onset this morning. Reports history of similar pain in the past, due to my pancreas , history of ETOH use, last drink was last night, denies withdrawal hx. Hypertensive 185/120, took his amlodipine this morning but vomited soon after Exam: guarding, L upper and lower quadrant TTP, not diaphoretic. Plan: Labs, EKG, urinalysis Discharge Plan Discharge Prescriptions: No Action ibuprofen 600 mg tablet 600 mg PO Q8H PRN (Reason: pain) Qty: 20 0RF lidocaine 5 % adhesive patch,medicated 1 patch topical DAILY Qty: 15 0RF Rx Instructions: leave on most painful area for up to 12 hrs cyclobenzaprine 10 mg tablet 10 mg PO Q8H Qty: 20 0RF amlodipine 10 mg tablet 1 tab PO DAILY omeprazole 20 mg capsule,delayed release(DR/EC) 1 cap PO DAILY albuterol sulfate 90 mcg/actuation HFA aerosol inhaler 2 puff PO Q4H PRN (Reason: Dyspnea) fluticasone propionate [Flovent HFA] 110 mcg/actuation HFA aerosol inhaler 1 puff PO BID hydroxyzine HCl 25 mg tablet 1 tab PO Q8H PRN (Reason: anxiety) gabapentin 300 mg capsule 1 cap PO BID atorvastatin 80 mg Tablet 80 mg PO BEDTIME cyanocobalamin (vitamin B-12) 1,000 mcg Tablet 1,000 mcg PO DAILY folic acid 1 mg Tablet 1 mg PO DAILY ondansetron 4 mg tablet,disintegrating 4 mg PO Q8H PRN (Reason: nausea and vomiting) Qty: 14 0RF lisinopril 10 mg tablet 10 mg PO DAILY Print Language: Iraqi
[2023-12-01 14:31] VITALS: BP 185/120; PULSE 91; RESP 22; TEMP 36.4; O2SAT 100; BMI 39.1
--- NOTE | 2023-12-01 14:35 | ECG_ITS ---
Test Reason : HTN/ABD PAIN Blood Pressure : / mmHG Vent. Rate : 083 BPM Atrial Rate : 083 BPM P-R Int : 132 ms QRS Dur : 084 ms QT Int : 340 ms P-R-T Axes : -11 -17 -12 degrees QTc Int : 399 ms Normal sinus rhythm Minimal voltage criteria for LVH, may be normal variant ( R in aVL ) Borderline ECG When compared with ECG of 16-JAN-2023 09:09, No significant change was found Referred By: Sadaf Wang Electronically Signed By:Lyndon Arcos
[2023-12-01 15:46] LABS: MANUAL DIFF FLAG NO
[2023-12-01 15:50] LABS: Basophils Percent Auto 0.3 % (0-2); Eosinophils Percent Auto 0.1 % (0-4); Hematocrit 49.8 % (42.0-52.0); Hemoglobin 16.3 g/dl (14.0-18.0); Imm Gran Pct Auto 0.7 % (0.0-0.4); Lymphocytes Absolute Auto 1.2 X10*3/uL (1.2-4.9); Lymphocytes Percent Auto 8.6 % (20-40); Mean Corpuscular HGB Conc 32.7 g/dl (31.0-36.0); Mean Corpuscular Hemoglobin 33.1 pg (27.0-33.0); Mean Corpuscular Volume 101.2 fL (80.0-98.0); Mean Platelet Volume 10.5 fL (9.4-12.4); Monocytes Absolute Auto 0.5 X10*3/uL (0.1-1.2); Monocytes Percent Auto 3.4 % (2-11); Neutrophils Absolute Auto 11.7 x10*3/uL (2.0-8.3); Neutrophils Percent Auto 86.9 % (45-73); Platelet Count 245 X10*3/uL (160-400); Red Blood Count 4.92 X10*6/uL (4.60-5.80); Red Cell Distribution Width 14.4 % (11.0-16.0); White Blood Count 13.4 X10*3/uL (4.8-10.8)
[2023-12-01 15:54] LABS: Appearance Urine Clear; Color Urine Orange; Glucose Urine UA Negative (Negative); Leukocyte Esterase Urine Trace (Negative); Nitrite Urine Negative (Negative); PH 6.5 (5.0-9.0); Specific Gravity - Urine >= 1.030 (1.005-1.025); UMIC TRIGGER UACC YES; Urine Blood Negative (Negative); Urine Ketones 40 mg/dL (Negative); Urine Protein 30 (1+) mg/dL (Neg-Trace)
[2023-12-01 16:02] LABS: Bacteria Urine None Seen (None Seen); Hyaline Casts Urine 0-2 /LPF (0-2); RBC Urine 0-2 /HPF (0-2); Squamous Epithelial Cell Urine 0-2 /HPF (0-2); WBC Urine 0-5 /HPF (0-5)
[2023-12-01 16:24] LABS: Troponin-I High Sensitivity 3.2 ng/L (<3.5-35.0)
[2023-12-01 16:37] LABS: Alanine Aminotransferase 34 U/L (0-40); Albumin Level 4.3 g/dL (3.5-5.0); Alkaline Phosphatase 72 U/L (39-117); Anion Gap 21 (12-20); Aspartate Amino Transferase 31 U/L (5-37); Bilirubin Total 1.3 mg/dL (0.0-1.0); Blood Urea Nitrogen 14 mg/dL (9-16); Calcium 9.5 mg/dL (8.4-10.2); Carbon Dioxide 20 mmol/L (22-29); Chloride 101 mmol/L (96-108); Creatinine Clr Calc Pharmacy 76.9; Estimated Glomerular Filt Rate 55; Glucose Random 157 mg/dL (60-115); Lipase 340 U/L (8-78); Magnesium 1.7 mg/dL (1.6-2.6); Sodium 137 mmol/L (135-145); Total Protein 7.7 g/dL (6.5-8.0)
[2023-12-01] MEDS: iohexoL 350 MG/ML 100 ML INFUS..BTL IV (17:45)
[2023-12-01 17:54] VITALS: BP 170/95; PULSE 90; RESP 20; TEMP 36.6; O2SAT 99
[2023-12-01] MEDS: ondansetron HCL 4 MG/2 ML VIAL IVPUSH (18:04)
[2023-12-01] MEDS: Famotidine/PF 20 MG/2 ML VIAL IVPUSH (18:04)
[2023-12-01] MEDS: 0.9 % Sodium Chloride 1,000 ML 999 ML IV ×2 (18:04→19:39)
[2023-12-01] MEDS: Morphine Sulfate 4 MG/ML CARTRIDGE IVPUSH ×2 (18:05→19:38)
[2023-12-01 19:44] VITALS: BP 159/86; PULSE 95; RESP 18; O2SAT 95
--- NOTE | 2023-12-01 20:24 | ED.ABDPAIN ---
HPI - Abdominal Pain General Chief Complaint: Abdominal Pain Stated Complaint: abdominal pain Time Seen by Provider: 12/01/23 17:00 Source: patient Mode of arrival: ambulatory Limitations: no limitations History of Present Illness HPI narrative: Patient's history of alcoholic pancreatitis last flare-up was in 2022 had few drinks yesterday and started having the pain mid abdomen radiating to the back associated with nausea vomiting and loose bowel. No fever no chills vomited several times unable to take any p.o. fluids all day today no urinary complaints no history of hematuria or kidney stone Related Data Home Medications ?Medication ?Instructions ?Recorded ?Confirmed albuterol sulfate 90 mcg/actuation 2 puff PO Q4H PRN Dyspnea 09/23/21 02/12/22 aerosol inhaler amlodipine 10 mg tablet 1 tab PO DAILY 09/23/21 02/12/22 fluticasone propionate 110 1 puff PO BID 09/23/21 02/12/22 mcg/actuation HFA aerosol inhaler (Flovent HFA) hydroxyzine HCl 25 mg tablet 1 tab PO Q8H PRN anxiety 09/23/21 02/12/22 omeprazole 20 mg capsule,delayed 1 cap PO DAILY 09/23/21 02/12/22 release atorvastatin 80 mg tablet 80 mg PO BEDTIME 02/12/22 02/12/22 cyanocobalamin (vitamin B-12) 1,000 mcg PO DAILY 02/12/22 02/12/22 1,000 mcg tablet folic acid 1 mg tablet 1 mg PO DAILY 02/12/22 02/12/22 gabapentin 300 mg capsule 1 cap PO BID 02/12/22 02/12/22 lisinopril 10 mg tablet 10 mg PO DAILY 06/20/23 Previous Rx's ?Medication ?Instructions ?Recorded ondansetron 4 mg disintegrating 4 mg PO Q8H PRN nausea and 02/23/22 tablet vomiting #14 tabs ibuprofen 600 mg tablet 600 mg PO Q8H PRN pain #20 tabs 03/08/22 lidocaine 5 % topical patch 1 patch topical DAILY #15 ea 03/08/22 cyclobenzaprine 10 mg tablet 10 mg PO Q8H #20 tabs 06/22/22 Allergies Allergy/AdvReac Type Severity Reaction Status Date / Time No Known Allergies Allergy Verified 12/01/23 14:32 Review of Systems Review of Systems Yes all other systems are reviewed and are negative [facility] Past Medical History Medical History Obesity HLD (hyperlipidemia) Alcohol abuse Pancreatitis HTN (hypertension) Surgical History No pertinent past surgical history Family History Family History Other No family history of coronary artery disease Social History Social History Household Members: Spouse Housing: [facility] Do you presently have visiting nurse or other home services: No Alcohol intake: current Alcohol intake frequency: a few times a week Comment: refuses alarms Patient Tobacco Use Status: Never used Tobacco Smoked in Last 30 Days: No Substance Use Type: Crack/Cocaine Advance Directives: No Advance Directives Information Provided: No service: No Current occupational status: employed Physical Exam ED Vital Signs: Vital Signs - 24 hr 12/01/23 14:31 12/01/23 17:54 12/01/23 19:44 Temperature 97.5 F 98 F Pulse Rate 91 90 95 Respiratory Rate 22 H 20 18 Blood Pressure 185/120 H 170/95 H 159/86 H Pulse Oximetry 100 99 95 Oxygen Delivery Method Room Air Room Air Room Air BMI result Body Mass Index 39.1 Appearance: Alert. Oriented X3. In moderate distress Eyes: No pallor or icterus ENT: Pharynx normal. Oral Mucosa moist Neck: Normal inspection. Neck supple. CVS: Normal heart rate and rhythm. Pulses normal. Respiratory: No respiratory distress. Equal air entry bilateral, no wheezing/rales/rhonchi Abdomen: Soft tenderness in mid abdomen with guarding no rebound tenderness Bowel sounds are present, no mass palpable, no CVA tenderness Skin: Skin warm and dry. Normal skin color. Normal skin turgor. Extremities: No lower extremity edema. No calf tenderness Neuro: Oriented X 3. No motor deficit. Medical Decision Making Medical Decision Making [facility] Narrative: Patient with uncomplicated acute pancreatitis with increased pain and nausea vomiting will admit patient for pain control and IV hydration Differential Diagnosis Differential Diagnoses: The differential diagnosis associated with the presentation includes With cholelithiasis/pancreatitis/kidney stone/gastritis Admission/Observation Consideration of admission/observation: Escalation of care including admission/observation considered Consult Healthcare Provider Management of the patient was discussed with: Hospitalist Lab Data MDM Lab Attestation statement: I reviewed the patient's lab results. 12/01/23 15:36 12/01/23 15:36 Labs: Lab Results 12/01/23 Range/Units 15:36 WBC 13.4 H (4.8-10.8) X10*3/uL RBC 4.92 (4.60-5.80) X10*6/uL Hgb 16.3 (14.0-18.0) g/dl Hct 49.8 (42.0-52.0) % MCV 101.2 H (80.0-98.0) fL MCH 33.1 H (27.0-33.0) pg MCHC 32.7 (31.0-36.0) g/dl RDW 14.4 (11.0-16.0) % Plt Count 245 D (160-400) X10*3/uL MPV 10.5 (9.4-12.4) fL Immature Gran % (Auto) 0.7 H (0.0-0.4) % Neut % (Auto) 86.9 H (45-73) % Lymph % (Auto) 8.6 L (20-40) % [place] % (Auto) 3.4 (2-11) % Eos % (Auto) 0.1 (0-4) % Baso % (Auto) 0.3 (0-2) % Lymph # (Auto) 1.2 (1.2-4.9) X10*3/uL [place] # (Auto) 0.5 (0.1-1.2) X10*3/uL Eos # (Auto) 0.0 (0.0-0.4) X10*3/uL Baso # (Auto) 0.0 (0.0-0.2) X10*3/uL Abs Immat Gran (auto) 0.10 H (0.00-0.03) X10*3/uL Absolute Neuts (auto) 11.7 H (2.0-8.3) x10*3/uL Absolute Nucleated RBC 0.000 (0.0-0.012) X10*3/uL Nucleated RBC % (auto) 0.0 (0.0-0.2) /100WBC Sodium 137 (135-145) mmol/L Potassium 5.0 (3.3-5.1) mmol/L Chloride 101 (96-108) mmol/L Carbon Dioxide 20 L (22-29) mmol/L Anion Gap 21 H (12-20) BUN 14 (9-16) mg/dL Creatinine 1.38 (0.5-1.4) mg/dL Estim Creat Clear Calc 76.9 Estimated GFR 55 Random Glucose 157 H (60-115) mg/dL Calcium 9.5 (8.4-10.2) mg/dL Magnesium 1.7 (1.6-2.6) mg/dL Total Bilirubin 1.3 H (0.0-1.0) mg/dL AST 31 (5-37) U/L ALT 34 (0-40) U/L Alkaline Phosphatase 72 (39-117) U/L Troponin I High Sens 3.2 (<3.5-35.0) ng/L Total Protein 7.7 (6.5-8.0) g/dL Albumin 4.3 (3.5-5.0) g/dL Lipase 340 H (8-78) U/L Urine Color [place] A Urine Appearance Clear Urine pH 6.5 (5.0-9.0) Ur Specific [place] >= 1.030 H (1.005-1.025) Urine Protein 30 (1+) H (Neg-Trace) mg/dL Urine Glucose (UA) Negative (Negative) mg/dL Urine Ketones 40 (Negative) mg/dL Urine Blood Negative (Negative) Urine Nitrite Negative (Negative) Ur Leukocyte Esterase Trace H (Negative) Urine RBC 0-2 (0-2) /HPF Urine WBC 0-5 (0-5) /HPF Ur Squamous Epith Cells 0-2 (0-2) /HPF Urine Bacteria None Seen (None Seen) Hyaline Casts 0-2 (0-2) /LPF Independent Interpretation I performed an independent interpretation of an: CT Scan Radiology Impression Discussion of test interpretation with radiology: I have reviewed the radiologist's reading. Radiologist Impression: RDER #: [id number] CT/CT abdomen pelvis w IV con IMPRESSION: 1. The pancreas is diffusely edematous with surrounding stranding involving the body and tail. Findings are consistent with provided history of acute pancreatitis. No organized fluid collection. 2. Aortocaval and eliecer hepatis lymphadenopathy, likely reactive. Fleischner guidelines were followed. Medications Administered Discontinued Medications Generic Name Dose Route Start Last Admin Trade Name Brett PRN Reason Stop Dose Admin Famotidine 20 mg 12/01/23 17:27 12/01/23 18:04 Famotidine/Pf 20 Mg/2 Ml Vial IVPUSH 12/01/23 17:28 20 mg ONCE ONE Administration Sodium Chloride 1,000 mls @ 999 mls/hr 12/01/23 17:27 12/01/23 20:28 Ns IV 12/01/23 18:27 Infused .Q1H1M ONE Infusion Sodium Chloride 1,000 mls @ 999 mls/hr 12/01/23 19:18 12/01/23 20:43 Ns IV 12/01/23 20:18 Infused .Q1H1M ONE Infusion Iohexol 100 ml 12/01/23 17:45 12/01/23 17:45 Iohexol 350 Mg/Ml 100 Ml Infus..Btl IV 12/01/23 17:46 85 ml ONCE ONE Administration Ketorolac Tromethamine 30 mg 12/01/23 20:23 12/01/23 20:27 Ketorolac Tromethamine 30 Mg/Ml Vial IVPUSH 12/01/23 20:24 30 mg ONCE ONE Administration Morphine Sulfate 4 mg 12/01/23 17:27 12/01/23 18:05 Morphine Sulfate 4 Mg/Ml Cartridge IVPUSH 12/01/23 17:28 4 mg ONCE ONE Administration Protocol Morphine Sulfate 4 mg 12/01/23 19:18 12/01/23 19:38 Morphine Sulfate 4 Mg/Ml Cartridge IVPUSH 12/01/23 19:19 4 mg ONCE ONE Administration Protocol Ondansetron HCl 4 mg 12/01/23 17:27 12/01/23 18:04 Ondansetron Hcl 4 Mg/2 Ml Vial IVPUSH 12/01/23 17:28 4 mg ONCE ONE Administration Discharge Plan Discharge Clinical Impression: Acute alcoholic pancreatitis Patient Disposition: Admitted As Inpatient Print Language: Martiniquais
[2023-12-01] MEDS: Ketorolac Tromethamine 30 MG/ML VIAL IVPUSH (20:27)
--- NOTE | 2023-12-01 20:46 | PM.IMHP ---
History of Present Illness Date of Service: 12/01/23 Attending physician on admission: Christine Rich Chief Complaint: Abdominal pain Pt is a 48-year-old male with a PMH significant for?alcoholic pancreatitis with last significant flare-up in 2021, HTN, and HLD who presents to the ED with?severe LUQ abdominal pain wrapping around to the back since this morning. Patient reports originally felt some abdominal discomfort last evening, though was resolved by the time he woke up the next morning. This morning patient awoke with severe abdominal pain with nausea and vomiting all day. Patient has a history of previous pancreatitis, though reports this pain was much more severe than previous episodes. Was last admitted to the hospital in 2021 for acute alcoholic pancreatitis which required a prolonged 11-day hospital stay. 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 States last drank two 7-ounce beers last night. Denies chest pain/pressure, palpitations. No fever, chills. Denies shortness of breath. No lightheadedness or dizziness. No change to bowel bladder habits. In the ED pt was tachypneic up to 22, tachycardic up to 95, and hypertensive up to 185/120. Labs were significant for leukocytosis of 13.4, bilirubin 1.3, and lipase 340. H&H stable. No significant electrolyte abnormalities. UA negative for UTI. CT?of abdomen and pelvis found diffusely edematous pancreas with surrounding stranding involving body and tail without organized fluid collection, suggestive of acute pancreatitis. EKG demonstrated normal sinus rhythm without significant evidence ST elevations or depressions. Pt was treated with IVF, ondansetron, famotidine, morphine, and ketorolac. Pt will be admitted to the hospital for treatment and further evaluation of acute pancreatitis. Review of Systems Review of Systems: LUQ pain wrapping around to back Nausea and vomiting Denies fever or chills No change to bowel or bladder habits Denies chest pain/pressure, palpitations Shortness of breath [facility] Medical History Obesity HLD (hyperlipidemia) Alcohol abuse Pancreatitis HTN (hypertension) Family History Other No family history of coronary artery disease Surgical History No pertinent past surgical history Social History Household Members: [facility] Do you presently have visiting nurse or other home services: No Alcohol intake: current Alcohol intake frequency: a few times a week Comment: refuses alarms Patient Tobacco Use Status: Never used Tobacco Smoked in Last 30 Days: No Substance Use Type: Crack/Cocaine Advance Directives: No Advance Directives Information Provided: No service: No Current occupational status: employed Meds Allergies Allergy/AdvReac Type Severity Reaction Status Date / Time No Known Allergies Allergy Verified 12/01/23 14:32 Home Medications ?Medication ?Instructions ?Recorded ?Confirmed ?Last Taken ?Type albuterol sulfate 90 mcg/actuation 2 puff PO Q4H PRN Dyspnea 09/23/21 02/12/22 Unknown History aerosol inhaler amlodipine 10 mg tablet 1 tab PO DAILY 09/23/21 02/12/22 4 Days Ago History ~02/08/22 fluticasone propionate 110 1 puff PO BID 09/23/21 02/12/22 4 Days Ago History mcg/actuation HFA aerosol inhaler ~02/08/22 (Flovent HFA) hydroxyzine HCl 25 mg tablet 1 tab PO Q8H PRN anxiety 09/23/21 02/12/22 Unknown History omeprazole 20 mg capsule,delayed 1 cap PO DAILY 09/23/21 02/12/22 4 Days Ago History release ~02/08/22 atorvastatin 80 mg tablet 80 mg PO BEDTIME 02/12/22 02/12/22 4 Days Ago History ~02/08/22 cyanocobalamin (vitamin B-12) 1,000 mcg PO DAILY 02/12/22 02/12/22 4 Days Ago History 1,000 mcg tablet ~02/08/22 folic acid 1 mg tablet 1 mg PO DAILY 02/12/22 02/12/22 4 Days Ago History ~02/08/22 gabapentin 300 mg capsule 1 cap PO BID 02/12/22 02/12/22 4 Days Ago History ~02/08/22 lisinopril 10 mg tablet 10 mg PO DAILY 06/20/23 Unknown History Physical Exam Vital Signs and Narrative: Vital Signs: Last Vital Signs Temp 98 F 12/01/23 17:54 Pulse 95 12/01/23 19:44 Resp 18 12/01/23 19:44 BP 159/86 H 12/01/23 19:44 Pulse Ox 95 12/01/23 19:44 O2 Del Method Room Air 12/01/23 19:44 BMI result Body Mass Index 39.1 Constitutional: Alert, in no acute distress. Mental Status: Oriented to person, place and time. Eyes: Pupils are equal, round, and reactive to light. Ear, Nose, and Throat: Oropharynx clear, mucous membranes moist. Ears and nose without deformities. Trachea midline. Respiratory: Clear to auscultation bilaterally. No wheezing, rales, or rhonchi. Cardiovascular: S1, S2 regular. No murmurs, rubs, or gallops. Gastrointestinal: Abdomen soft, with LUQ tenderness. +BS. Neurologic: Cranial nerves II-XII are grossly intact bilaterally. No focal neurological deficits. Moves all extremities spontaneously. Skin: Warm, dry. Musculoskeletal: No cyanosis or clubbing. Extremities: No edema. Psychiatric: Normal mood and affect. Results Labs 12/01/23 15:36 12/01/23 15:36 Labs: Laboratory Results - last 24 hr 12/01/23 15:36 MCV 101.2 H MCH 33.1 H MCHC 32.7 RDW 14.4 Plt Count 245 D MPV 10.5 Immature Gran % (Auto) 0.7 H Neut % (Auto) 86.9 H Lymph % (Auto) 8.6 L [place] % (Auto) 3.4 Eos % (Auto) 0.1 Baso % (Auto) 0.3 Lymph # (Auto) 1.2 [place] # (Auto) 0.5 Eos # (Auto) 0.0 Baso # (Auto) 0.0 Abs Immat Gran (auto) 0.10 H Absolute Neuts (auto) 11.7 H Absolute Nucleated RBC 0.000 Nucleated RBC % (auto) 0.0 Anion Gap 21 H Estim Creat Clear Calc 76.9 Estimated GFR 55 Random Glucose 157 H Calcium 9.5 Magnesium 1.7 Total Bilirubin 1.3 H AST 31 ALT 34 Alkaline Phosphatase 72 Troponin I High Sens 3.2 Total Protein 7.7 Albumin 4.3 Lipase 340 H Urine Color [place] A Urine Appearance Clear Urine pH 6.5 Ur Specific [place] >= 1.030 H Urine Protein 30 (1+) H Urine Glucose (UA) Negative Urine Ketones 40 Urine Blood Negative Urine Nitrite Negative Ur Leukocyte Esterase Trace H Urine RBC 0-2 Urine WBC 0-5 Ur Squamous Epith Cells 0-2 Urine Bacteria None Seen Hyaline Casts 0-2 Imaging Radiologist's Impressions: Impressions Abdomen/Pelvis CT 12/01/23 17:51 IMPRESSION: 1. The pancreas is diffusely edematous with surrounding stranding involving the body and tail. Findings are consistent with provided history of acute pancreatitis. No organized fluid collection. 2. Aortocaval and eliecer hepatis lymphadenopathy, likely reactive. Fleischner guidelines were followed. Assessment and Plan (1) Acute alcoholic pancreatitis: Status: Acute Plan Pt is a 48-year-old male with a PMH significant for?alcoholic pancreatitis with last significant flare-up in 2021, HTN, and HLD who presents to the ED with?severe LUQ abdominal pain wrapping around to the back since this morning. Pt will be admitted to the hospital for treatment and further evaluation of acute pancreatitis. Acute alcoholic pancreatitis Elevated lipase, CT showing acute pancreatitis, last drank last night Will treat with IVF, IV analgesics, and bowel rest Patient will be made NPO, advance diet as tolerated Alcohol cessation has been encouraged Leukocytosis Likely reactionary, not due to sepsis Patient does not meet sepsis criteria: Elevated heart rate secondary to pain, no indication of bacterial infection No indication for antibiotic coverage at this time HTN Continue amlodipine HLD Continue statin Alcohol dependence Addiction medicine consult Full Code Attending:?Dr. Pedraza DVT Prophylaxis: Lovenox Pt will require a hospitalization of at least two nights for treatment of?acute alcoholic pancreatitis. As patient is unable to tolerate p.o. intake, he will require hospitalization for the administration of IV fluids, IV analgesics, and close monitoring of labs. Quality Stroke Does the patient have a stroke diagnosis?: No VTE Prior VTE?: No VTE Risk Level:: Medical - moderate - high VTE Device Contraindication: Treatment Not Indicated VTE Drug Contraindication: N/A - Med Ordered
[2023-12-01] MEDS: Prochlorperazine Edisylate 10 MG/2 ML VIAL IVPUSH (21:53)
[2023-12-01] MEDS: HYDROmorphone HCl 1 MG/ML SYRINGE IVPUSH (22:14)
[2023-12-01] MEDS: 0.9 % Sodium Chloride 1,000 ML 100 ML IVCONT (23:40)
[2023-12-01] MEDS: Enoxaparin Sodium 40 MG/0.4 ML SYRINGE SUBCUT (23:40)
[2023-12-02] MEDS: Acetaminophen 325 MG TABLET 650 MG PO ×2 (00:23→07:42)
[2023-12-02] MEDS: Melatonin 3 MG TABLET 6 MG PO (00:24)
[2023-12-02] MEDS: HYDROmorphone HCl 1 MG/ML SYRINGE IVPUSH ×7 (02:29→23:06)
[2023-12-02] MEDS: Ketorolac Tromethamine 15 MG/ML VIAL IVPUSH ×2 (04:32→11:00)
[2023-12-02] MEDS: ondansetron HCL 4 MG/2 ML VIAL IVPUSH ×2 (04:43→13:20)
[2023-12-02 05:07] LABS: Hematocrit 50.4 % (42.0-52.0); Hemoglobin 16.4 g/dl (14.0-18.0); Mean Corpuscular HGB Conc 32.5 g/dl (31.0-36.0); Mean Corpuscular Hemoglobin 32.7 pg (27.0-33.0); Mean Corpuscular Volume 100.6 fL (80.0-98.0); Mean Platelet Volume 10.6 fL (9.4-12.4); Platelet Count 235 X10*3/uL (160-400); Red Blood Count 5.01 X10*6/uL (4.60-5.80); Red Cell Distribution Width 14.6 % (11.0-16.0); White Blood Count 15.7 X10*3/uL (4.8-10.8)
[2023-12-02 05:27] LABS: Anion Gap 15 (12-20); Blood Urea Nitrogen 12 mg/dL (9-16); Calcium 8.4 mg/dL (8.4-10.2); Carbon Dioxide 24 mmol/L (22-29); Chloride 101 mmol/L (96-108); Estimated Glomerular Filt Rate 59; Glucose Random 119 mg/dL (60-115); Potassium 4.4 mmol/L (3.3-5.1); Sodium 136 mmol/L (135-145)
[2023-12-02] MEDS: 0.9 % Sodium Chloride 1,000 ML 100 ML IVCONT ×2 (09:13→19:54)
[2023-12-02] MEDS: Pantoprazole Sodium 40 MG/10 ML VIAL IVPUSH ×2 (09:21→15:54)
--- NOTE | 2023-12-02 10:01 | PHA.MEDREC ---
Addendum entered by Anupam Saez 12/02/23 10:19: Amlodipine and Lisinopril were last picked up in beginning of June for 30 DS. Flovent and cyclobenzaprine are not on claims but was reported by family member as prns. Original Note: Pharmacy Consult ? Medication Reconciliation Pharmacy has completed the medication reconciliation. When doing the med list we noticed all medications were from June 2023 or before but we were able to speak with a family member Crystal and confirmed med list with them.
[2023-12-02 10:18] VITALS: BP 175/109; PULSE 96; RESP 18; TEMP 36.6; O2SAT 97
--- NOTE | 2023-12-02 13:20 | PC.NURSE ---
pt reports nausea. zofran given per prn orders
[2023-12-02] MEDS: amLODIPine Besylate 10 MG TABLET PO (15:54)
[2023-12-02] MEDS: Cyanocobalamin (Vitamin B-12) 1,000 MCG TABLET 1000 MCG PO (15:54)
[2023-12-02] MEDS: lisinopriL 10 MG TABLET PO (15:54)
--- NOTE | 2023-12-02 16:00 | MHC.CM.PN ---
PT REPORTS HE LIVES WITH HIS S/O, IS INDEPENDENT WITH CARE AND WORKS PT HAS NO DME AND NO SERVICES HE DOES NOT HAVE A HCP AND DOES NOT WANT TO COMPLETE ONE TODAY PCP: LENNY PICKETT III DCP: HOME NO SERVICES VIA PRIVATE TRANSPORT
--- NOTE | 2023-12-02 17:07 | P.PNIM_ITS ---
Subjective Subjective Date of Service: 12/02/23 Interval History: uncontrolled htn ,acute pancreatitis Review of Systems has abd pain but somwwhat improving has nausea no fever Review of Systems: Yes all other systems are reviewed and are negative Physical Exam 2 Vital Signs: Vital Signs: Last Vital Signs Temp 98 F 12/02/23 10:18 Pulse 96 12/02/23 10:18 Resp 18 12/02/23 10:18 BP 175/109 H 12/02/23 10:18 Pulse Ox 97 12/02/23 10:18 O2 Del Method Room Air 12/02/23 10:18 BMI result Body Mass Index 39.1 Appearance: Alert.? Oriented X3.? cvs: rrr, [id number] , no murmur res: clear to auscultation ,no rhonchii or wheezing abd: no rebound or guarding ,Llq pain, bs present. ext pulses present , no cyanosis . neuro: axo3 , nonfocal. Objective Data Active Medications Acetaminophen (Acetaminophen 325 Mg Tablet) 650 mg PO Q6H PRN PRN Reason: Pain, Mild (Pain Scale 1-3) Last Admin: 12/02/23 07:42 Dose: 650 mg Documented By: LUISA Albuterol Sulfate (Albuterol Sulfate 90 Mcg 8 Gm Inhaler) 2 puff INHALE Q4H PRN PRN Reason: Dyspnea Amlodipine Besylate (Amlodipine Besylate 10 Mg Tablet) 10 mg PO DAILY [facility]; Protocol Last Admin: 12/02/23 15:54 Dose: 10 mg Documented By: GREG Atorvastatin Calcium (Atorvastatin Calcium 80 Mg Tablet) 80 mg PO BEDTIME [facility] Benzonatate (Benzonatate 100 Mg Capsule) 100 mg PO TID PRN PRN Reason: Cough Cyanocobalamin (Cyanocobalamin (Vitamin B-12) 1,000 Mcg Tablet) 1,000 mcg PO DAILY [facility] Last Admin: 12/02/23 15:54 Dose: 1,000 mcg Documented By: GREG Cyclobenzaprine HCl (Cyclobenzaprine Hcl 10 Mg Tablet) 10 mg PO Q8H PRN PRN Reason: Muscle spasms Docusate Sodium (Docusate Sodium 100 Mg Capsule) 100 mg PO DAILY PRN PRN Reason: Constipation Enoxaparin Sodium (Enoxaparin Sodium 40 Mg/0.4 Ml Syringe) 40 mg SUBCUT Q24H [facility] Last Admin: 12/01/23 23:40 Dose: 40 mg Documented By: PINA Fluticasone Propionate (Fluticasone Propionate 100 Mcg Blst.W.Dev) 1 puff INHALE BID PRN PRN Reason: cough/wheezing Hydromorphone HCl (Hydromorphone Hcl 1 Mg/Ml Syringe) 1 mg IVPUSH Q3H PRN; Protocol PRN Reason: Pain, Severe (Pain Scale 7-10) Last Admin: 12/02/23 14:01 Dose: 1 mg Documented By: GREG Hydroxyzine HCl (Hydroxyzine Hcl 25 Mg Tablet) 25 mg PO Q8H PRN PRN Reason: anxiety Sodium Chloride (Ns) 1,000 mls @ 100 mls/hr IVCONT .Q10H [facility] Last Admin: 12/02/23 09:13 Dose: 100 mls/hr Documented By: GREG Lisinopril (Lisinopril 10 Mg Tablet) 10 mg PO DAILY [facility]; Protocol Last Admin: 12/02/23 15:54 Dose: 10 mg Documented By: GREG Melatonin (Melatonin 3 Mg Tablet) 6 mg PO BEDTIME PRN PRN Reason: Insomnia Last Admin: 12/02/23 00:24 Dose: 6 mg Documented By: PINA Ondansetron HCl (Ondansetron Hcl 4 Mg/2 Ml Vial) 4 mg IVPUSH Q8H PRN PRN Reason: Nausea and Vomiting Last Admin: 12/02/23 13:20 Dose: 4 mg Documented By: GREG Pantoprazole Sodium (Pantoprazole Sodium 40 Mg/10 Ml Vial) 40 mg IVPUSH BID@0630,1630 [facility] Last Admin: 12/02/23 15:54 Dose: 40 mg Documented By: GREG Sodium Chloride (0.9 % Sodium Chloride Flush 3 Ml Syringe) 3 ml IVFLUSH QSHIFT [facility] Last Admin: 12/02/23 15:54 Dose: Not Given Documented By: GREG Non-Admin Reason: IV Running Labs 12/02/23 04:05 12/02/23 04:05 Labs: Laboratory Results - last 24 hr 12/02/23 04:05 MCV 100.6 H MCH 32.7 MCHC 32.5 RDW 14.6 Plt Count 235 MPV 10.6 Absolute Nucleated RBC 0.000 Nucleated RBC % (auto) 0.0 Anion Gap 15 Estim Creat Clear Calc 81.0 Estimated GFR 59 Random Glucose 119 H Calcium 8.4 D Assessment and Plan (1) Acute alcoholic pancreatitis: Status: Acute Assessment and Plan: 48-year-old male with a PMH significant for?alcoholic pancreatitis with last significant flare-up in 2021, HTN, and HLD who presents to the ED with?severe LUQ abdominal pain wrapping around to the back since this morning. Pt will be admitted to the hospital for treatment and further evaluation of acute pancreatitis. Acute alcoholic pancreatitis Elevated lipase, CT showing acute pancreatitis, last drank last night continue IVF, IV analgesics, and bowel rest,NPO, advance diet as tolerated Alcohol cessation has been encouraged Leukocytosis-thought to be Likely reactionary, not due to sepsis Patient does not meet sepsis criteria: Elevated heart rate secondary to pain, no indication of bacterial infection No indication for antibiotic coverage at this time HTN: suboptimal started amlodipine/lisinopril. HLD Continue statin Alcohol dependence Addiction medicine consult Full Code DVT Prophylaxis: Lovenox ongoing hospitalization need for treatment of?acute alcoholic pancreatitis. As patient is unable to tolerate p.o. intake, he will require hospitalization for the administration of IV fluids, IV analgesics, and close monitoring of labs. Quality Stroke Does the patient have a stroke diagnosis?: No VTE Prior VTE?: No VTE Risk Level:: Medical - moderate - high VTE Device Contraindication: Treatment Not Indicated VTE Drug Contraindication: N/A - Med Ordered
[2023-12-02 19:42] VITALS: BP 132/79; PULSE 94; RESP 16; O2SAT 97
--- NOTE | 2023-12-02 19:54 | PC.NURSE ---
assumed care at 1900, pt c/o severe abd pain, medicated per SEP. ambulated to [facility] w/o any difficulties
[2023-12-02] MEDS: Enoxaparin Sodium 40 MG/0.4 ML SYRINGE SUBCUT (22:56)
--- NOTE | 2023-12-02 23:06 | PC.NURSE ---
pt medicated per mar for pain
[2023-12-03] MEDS: ondansetron HCL 4 MG/2 ML VIAL IVPUSH (01:20)
--- NOTE | 2023-12-03 01:20 | PC.NURSE ---
pt returned from [facility], c/o nausea, medicated per MAR
[2023-12-03] MEDS: HYDROmorphone HCl 1 MG/ML SYRINGE IVPUSH ×7 (02:03→21:13)
--- NOTE | 2023-12-03 02:03 | PC.NURSE ---
pt medicated per Mar for pain
[2023-12-03] MEDS: 0.9 % Sodium Chloride 1,000 ML 100 ML IVCONT ×2 (04:19→15:04)
[2023-12-03 04:51] VITALS: BP 130/71; PULSE 108; RESP 18; TEMP 37.3; O2SAT 94
[2023-12-03] MEDS: Pantoprazole Sodium 40 MG/10 ML VIAL IVPUSH (05:14)
--- NOTE | 2023-12-03 05:24 | PC.NURSE ---
pt medicated per MAR for pain
[2023-12-03 08:19] VITALS: BP 117/68; PULSE 111; RESP 18; TEMP 37.3; O2SAT 95
[2023-12-03] MEDS: lisinopriL 10 MG TABLET PO (08:22)
[2023-12-03] MEDS: Acetaminophen 325 MG TABLET 650 MG PO ×2 (08:22→21:33)
[2023-12-03] MEDS: amLODIPine Besylate 10 MG TABLET PO (08:22)
[2023-12-03] MEDS: Cyanocobalamin (Vitamin B-12) 1,000 MCG TABLET 1000 MCG PO (08:22)
--- NOTE | 2023-12-03 13:59 | PM.EVENT ---
Event Note Date of Service: 12/03/23 Event Note: Addiction consult placed for patient medically admitted with acute pancreatitis. Chart reviewed, at this time patient still c/o sever pain and requiring regular medication administration. Plan to see patient in the AM (12/03) to allow for rest and adequate pain control Time Spent With Patient Time: Total time managing care of this patient today ____ minutes.
[2023-12-03 14:00] VITALS: BP 116/65; PULSE 101; RESP 17; TEMP 37.2; O2SAT 94
--- NOTE | 2023-12-03 14:57 | HO.PM.IMPN ---
Subjective Subjective Date of Service: 12/03/23 Interval History: abd pain, not interested in po Physical Exam Vital Signs: Vital Signs: Last Vital Signs Temp 99 F 12/03/23 14:00 Pulse 101 H 12/03/23 14:00 Resp 17 12/03/23 14:00 BP 116/65 12/03/23 14:00 Pulse Ox 94 12/03/23 14:00 O2 Del Method Room Air 12/03/23 14:00 BMI result Body Mass Index 39.1 General: AO X 3, no acute distress Resp: CTA bilateral, no accessory muscles used CVS: S1,S2,RRR GI: soft, tender, non distended Neuro: motor grossly intact, alert Psych: appropriate affect, appropriate insight Objective Data Active Medications Acetaminophen (Acetaminophen 325 Mg Tablet) 650 mg PO Q6H PRN PRN Reason: Pain, Mild (Pain Scale 1-3) Last Admin: 12/03/23 08:22 Dose: 650 mg Documented By: CHI Albuterol Sulfate (Albuterol Sulfate 90 Mcg 8 Gm Inhaler) 2 puff INHALE Q4H PRN PRN Reason: Dyspnea Amlodipine Besylate (Amlodipine Besylate 10 Mg Tablet) 10 mg PO DAILY [facility]; Protocol Last Admin: 12/03/23 08:22 Dose: 10 mg Documented By: CHI Atorvastatin Calcium (Atorvastatin Calcium 80 Mg Tablet) 80 mg PO BEDTIME [facility] Last Admin: 12/02/23 20:56 Dose: Not Given Documented By: JESENIA Non-Admin Reason: NPO Benzonatate (Benzonatate 100 Mg Capsule) 100 mg PO TID PRN PRN Reason: Cough Cyanocobalamin (Cyanocobalamin (Vitamin B-12) 1,000 Mcg Tablet) 1,000 mcg PO DAILY [facility] Last Admin: 12/03/23 08:22 Dose: 1,000 mcg Documented By: CHI Cyclobenzaprine HCl (Cyclobenzaprine Hcl 10 Mg Tablet) 10 mg PO Q8H PRN PRN Reason: Muscle spasms Docusate Sodium (Docusate Sodium 100 Mg Capsule) 100 mg PO DAILY PRN PRN Reason: Constipation Enoxaparin Sodium (Enoxaparin Sodium 40 Mg/0.4 Ml Syringe) 40 mg SUBCUT Q24H [facility] Last Admin: 12/02/23 22:56 Dose: 40 mg Documented By: JESENIA Fluticasone Propionate (Fluticasone Propionate 100 Mcg Blst.W.Dev) 1 puff INHALE BID PRN PRN Reason: cough/wheezing Hydromorphone HCl (Hydromorphone Hcl 1 Mg/Ml Syringe) 1 mg IVPUSH Q3H PRN; Protocol PRN Reason: Pain, Severe (Pain Scale 7-10) Last Admin: 12/03/23 12:01 Dose: 1 mg Documented By: JEREMY Hydroxyzine HCl (Hydroxyzine Hcl 25 Mg Tablet) 25 mg PO Q8H PRN PRN Reason: anxiety Sodium Chloride (Ns) 1,000 mls @ 100 mls/hr IVCONT .Q10H [facility] Last Admin: 12/03/23 04:19 Dose: 100 mls/hr Documented By: JESENIA Lisinopril (Lisinopril 10 Mg Tablet) 10 mg PO DAILY [facility]; Protocol Last Admin: 12/03/23 08:22 Dose: 10 mg Documented By: CHI Melatonin (Melatonin 3 Mg Tablet) 6 mg PO BEDTIME PRN PRN Reason: Insomnia Last Admin: 12/02/23 00:24 Dose: 6 mg Documented By: PINA Ondansetron HCl (Ondansetron Hcl 4 Mg/2 Ml Vial) 4 mg IVPUSH Q8H PRN PRN Reason: Nausea and Vomiting Last Admin: 12/03/23 01:20 Dose: 4 mg Documented By: JESENIA Pantoprazole Sodium (Pantoprazole Sodium 40 Mg/10 Ml Vial) 40 mg IVPUSH BID@0630,1630 [facility] Last Admin: 12/03/23 05:14 Dose: 40 mg Documented By: JESENIA Sodium Chloride (0.9 % Sodium Chloride Flush 3 Ml Syringe) 3 ml IVFLUSH QSHIFT [facility] Last Admin: 12/03/23 08:03 Dose: Not Given Documented By: CHI Non-Admin Reason: IV Running Labs 12/02/23 04:05 12/02/23 04:05 Assessment and Plan (1) Acute alcoholic pancreatitis: Status: Acute Assessment and Plan: 48M PMH etoh dependence, recurrent pancreatitis, htn, obesity, hld, presented with abdominal pain Acute alcoholic pancreatitis IV fluids, IV pain meds, NPO for now, advanced diet as tolerated HTN started amlodipine/lisinopril. HLD Continue statin Alcohol dependence Monitor for withdrawal Obesity Weight loss recommended Full Code DVT Prophylaxis: Lovenox reason for continued hospitalization: Not tolerating p.o. Quality Stroke Does the patient have a stroke diagnosis?: No VTE Prior VTE?: No VTE Risk Level:: Medical - moderate - high VTE Device Contraindication: Treatment Not Indicated VTE Drug Contraindication: N/A - Med Ordered
--- NOTE | 2023-12-03 15:09 | PC.NURSE ---
Patient requesting medication for abdominal pain, medicated per SEP.
[2023-12-03] MEDS: Atorvastatin Calcium 80 MG TABLET PO (21:15)
[2023-12-03] MEDS: Enoxaparin Sodium 40 MG/0.4 ML SYRINGE SUBCUT (21:18)
[2023-12-03 21:40] VITALS: BP 114/55; PULSE 88; RESP 18; TEMP 37; O2SAT 100
[2023-12-04] VITALS (8 sets, daily range): BP systolic 102–127; BP diastolic 54–74; PULSE 91–108; RESP 16–20; TEMP 36.5–37.1; O2SAT 93–98
[2023-12-04] MEDS: HYDROmorphone HCl 1 MG/ML SYRINGE IVPUSH ×8 (00:29→23:40)
[2023-12-04] MEDS: ondansetron HCL 4 MG/2 ML VIAL IVPUSH (04:11)
[2023-12-04] MEDS: Acetaminophen 325 MG TABLET 650 MG PO (04:11)
--- NOTE | 2023-12-04 04:12 | PC.NURSE ---
pt requested prn tylenol as well as dilaudid. pt medicated per sep; reported 9/10 pain. pt also reported some nausea, prn given per sep.
[2023-12-04 05:15] LABS: Hematocrit 40.9 % (42.0-52.0); Hemoglobin 13.4 g/dl (14.0-18.0); Mean Corpuscular HGB Conc 32.8 g/dl (31.0-36.0); Mean Corpuscular Hemoglobin 33.2 pg (27.0-33.0); Mean Corpuscular Volume 101.2 fL (80.0-98.0); Mean Platelet Volume 10.9 fL (9.4-12.4); Platelet Count 189 X10*3/uL (160-400); Red Blood Count 4.04 X10*6/uL (4.60-5.80); Red Cell Distribution Width 14.6 % (11.0-16.0)
[2023-12-04 05:39] LABS: Alanine Aminotransferase 16 U/L (0-40); Albumin Level 3.4 g/dL (3.5-5.0); Alkaline Phosphatase 50 U/L (39-117); Anion Gap 16 (12-20); Aspartate Amino Transferase 18 U/L (5-37); Bilirubin Direct 0.6 mg/dL (0.0-0.5); Bilirubin Total 1.2 mg/dL (0.0-1.0); Blood Urea Nitrogen 9 mg/dL (9-16); Calcium 8.2 mg/dL (8.4-10.2); Carbon Dioxide 20 mmol/L (22-29); Chloride 103 mmol/L (96-108); Creatinine Clr Calc Pharmacy 96.5; Estimated Glomerular Filt Rate > 60; Glucose Fasting 91 mg/dL (60-99); Potassium 3.7 mmol/L (3.3-5.1); Sodium 135 mmol/L (135-145); Total Protein 6.5 g/dL (6.5-8.0)
[2023-12-04] MEDS: 0.9 % Sodium Chloride Flush 3 ML SYRINGE IVFLUSH ×2 (07:41→17:29)
[2023-12-04] MEDS: Lactated Ringers 1,000 ML 150 ML IVCONT ×2 (07:46→23:43)
--- NOTE | 2023-12-04 07:51 | PC.NURSE ---
pt is alert and oriented, skin appropriate for ethnicity, respirations even and unlabored, pt reports left lower abd pain, abd soft but tender, pt reports that once the pain medications wear off the nausea starts to come back
[2023-12-04] MEDS: lisinopriL 10 MG TABLET PO (09:24)
[2023-12-04] MEDS: amLODIPine Besylate 10 MG TABLET PO (09:24)
[2023-12-04] MEDS: Cyanocobalamin (Vitamin B-12) 1,000 MCG TABLET 1000 MCG PO (09:24)
--- NOTE | 2023-12-04 10:19 | P.PNIM_ITS ---
Subjective Subjective Date of Service: 12/04/23 Interval History: still with pain, willing to start clears Physical Exam 2 Vital Signs: Vital Signs: Last Vital Signs Temp 98.3 F 12/04/23 09:16 Pulse 97 12/04/23 09:16 Resp 18 12/04/23 09:16 BP 123/68 12/04/23 09:16 Pulse Ox 94 12/04/23 09:16 O2 Del Method Room Air 12/04/23 09:16 BMI result Body Mass Index 39.1 General: AO X 3, no acute distress Resp: CTA bilateral, no accessory muscles used CVS: S1,S2,RRR GI: soft, tender, non distended Neuro: motor grossly intact, alert Psych: appropriate affect, appropriate insight Objective Data Active Medications Acetaminophen (Acetaminophen 325 Mg Tablet) 650 mg PO Q6H PRN PRN Reason: Pain, Mild (Pain Scale 1-3) Last Admin: 12/04/23 04:11 Dose: 650 mg Documented By: VIOLETTA Albuterol Sulfate (Albuterol Sulfate 90 Mcg 8 Gm Inhaler) 2 puff INHALE Q4H PRN PRN Reason: Dyspnea Amlodipine Besylate (Amlodipine Besylate 10 Mg Tablet) 10 mg PO DAILY [facility]; Protocol Last Admin: 12/04/23 09:24 Dose: 10 mg Documented By: PEARL Atorvastatin Calcium (Atorvastatin Calcium 80 Mg Tablet) 80 mg PO BEDTIME [facility] Last Admin: 12/03/23 21:15 Dose: 80 mg Documented By: JEREMY Benzonatate (Benzonatate 100 Mg Capsule) 100 mg PO TID PRN PRN Reason: Cough Cyanocobalamin (Cyanocobalamin (Vitamin B-12) 1,000 Mcg Tablet) 1,000 mcg PO DAILY [facility] Last Admin: 12/04/23 09:24 Dose: 1,000 mcg Documented By: PEARL Cyclobenzaprine HCl (Cyclobenzaprine Hcl 10 Mg Tablet) 10 mg PO Q8H PRN PRN Reason: Muscle spasms Docusate Sodium (Docusate Sodium 100 Mg Capsule) 100 mg PO DAILY PRN PRN Reason: Constipation Enoxaparin Sodium (Enoxaparin Sodium 40 Mg/0.4 Ml Syringe) 40 mg SUBCUT Q24H [facility] Last Admin: 12/03/23 21:18 Dose: 40 mg Documented By: JEREMY Fluticasone Propionate (Fluticasone Propionate 100 Mcg Blst.W.Dev) 1 puff INHALE BID PRN PRN Reason: cough/wheezing Hydromorphone HCl (Hydromorphone Hcl 1 Mg/Ml Syringe) 1 mg IVPUSH Q3H PRN; Protocol PRN Reason: Pain, Severe (Pain Scale 7-10) Last Admin: 12/04/23 07:39 Dose: 1 mg Documented By: JOSÉ Hydroxyzine HCl (Hydroxyzine Hcl 25 Mg Tablet) 25 mg PO Q8H PRN PRN Reason: anxiety Lactated Ringer's (Lr) 1,000 mls @ 150 mls/hr IVCONT .Q6H40M [facility] Last Admin: 12/04/23 07:46 Dose: 150 mls/hr Documented By: JOSÉ Lisinopril (Lisinopril 10 Mg Tablet) 10 mg PO DAILY [facility]; Protocol Last Admin: 12/04/23 09:24 Dose: 10 mg Documented By: PEARL Melatonin (Melatonin 3 Mg Tablet) 6 mg PO BEDTIME PRN PRN Reason: Insomnia Last Admin: 12/02/23 00:24 Dose: 6 mg Documented By: PINA Ondansetron HCl (Ondansetron Hcl 4 Mg/2 Ml Vial) 4 mg IVPUSH Q8H PRN PRN Reason: Nausea and Vomiting Last Admin: 12/04/23 04:11 Dose: 4 mg Documented By: VIOLETTA Sodium Chloride (0.9 % Sodium Chloride Flush 3 Ml Syringe) 3 ml IVFLUSH [facility] Last Admin: 12/04/23 07:41 Dose: 3 ml Documented By: JOSÉ Labs 12/04/23 04:10 12/04/23 04:10 Labs: Laboratory Results - last 24 hr 12/04/23 04:10 MCV 101.2 H MCH 33.2 H MCHC 32.8 RDW 14.6 Plt Count 189 MPV 10.9 Absolute Nucleated RBC 0.000 Nucleated RBC % (auto) 0.0 Anion Gap 16 Estim Creat Clear Calc 96.5 Estimated GFR > 60 Fasting Glucose 91 Calcium 8.2 L Magnesium 2.0 Total Bilirubin 1.2 H Direct Bilirubin 0.6 H AST 18 ALT 16 Alkaline Phosphatase 50 Total Protein 6.5 Albumin 3.4 L Assessment and Plan (1) Acute alcoholic pancreatitis: Status: Acute Assessment and Plan: 48M PMH etoh dependence, recurrent pancreatitis, htn, obesity, hld, presented with abdominal pain Acute alcoholic pancreatitis IV fluids, IV pain meds, clears for now, advanced diet as tolerated HTN started amlodipine/lisinopril. HLD Continue statin Alcohol dependence Monitor for withdrawal Obesity Weight loss recommended Full Code DVT Prophylaxis: Lovenox reason for continued hospitalization: Not tolerating p.o. Quality Stroke Does the patient have a stroke diagnosis?: No VTE Prior VTE?: No VTE Risk Level:: Medical - moderate - high VTE Device Contraindication: Treatment Not Indicated VTE Drug Contraindication: N/A - Med Ordered
--- NOTE | 2023-12-04 11:30 | MHC.RECOVRN ---
Met with pt in 353 after consult placed to Addiction Medicine for alcohol use. Pt had presented to the ED reporting abdominal pain, N/V/D. Upon evaluation, pt admitted for treatment of acute alcohol induced pancreatitis. Pt laying in bed, awake, alert, easily engages in conversation. Pt reports this is 2nd admission for pancreatitis, first admission last year. Pt reports after 1st admission he abstained from alcohol for 5-6 months and then returned to drinking. Pt reports currently drinking 75% less than amount prior to first hospitalization. Pt reports he typically drinks 3-4 shots and a couple beers throughout the week. Pt states I don't have an addictive personality so I don't NEED to drink. Pt reports he is part of an association and when around friends experiences peer pressure to consume alcohol. Pt reports he does not experience cravings or withdrawal symptoms when he does not drink. Pt does not believe abstinence will be difficult after experiencing pancreatitis this second time. Pt open to resources, however, declines any referrals. Pt provided with t/w contact information as well if needed. Denies questions or concerns for t/w. Discussed with Bre Blackmon APRN.
--- NOTE | 2023-12-04 15:51 | MHC.CM.PN ---
per rounds pt not meducally ready for dc plans remains home no servies
[2023-12-04] MEDS: Cyclobenzaprine HCl 10 MG TABLET PO (17:37)
[2023-12-04] MEDS: Atorvastatin Calcium 80 MG TABLET PO (19:34)
[2023-12-04] MEDS: Enoxaparin Sodium 40 MG/0.4 ML SYRINGE SUBCUT (22:30)
[2023-12-04] MEDS: Ketorolac Tromethamine 30 MG/ML VIAL IVPUSH (23:38)
[2023-12-04] MEDS: hydrOXYzine HCL 25 MG TABLET PO (23:40)
[2023-12-05] MEDS: HYDROmorphone HCl 1 MG/ML SYRINGE IVPUSH ×2 (03:22→06:45)
[2023-12-05 04:00] VITALS: BP 132/58; PULSE 90; RESP 18; TEMP 36.8; O2SAT 98
[2023-12-05] MEDS: Cyclobenzaprine HCl 10 MG TABLET PO (05:04)
[2023-12-05] MEDS: Ketorolac Tromethamine 15 MG/ML VIAL IVPUSH (05:04)
[2023-12-05] MEDS: Lactated Ringers 1,000 ML 150 ML IVCONT ×2 (06:46→13:42)
[2023-12-05 08:00] VITALS: BP 108/58; PULSE 89; RESP 12; TEMP 37.1; O2SAT 94
--- NOTE | 2023-12-05 09:20 | HO.PM.IMPN ---
Subjective Subjective Date of Service: 12/05/23 Interval History: Still with significant pain, not tolerating clears Physical Exam Vital Signs: Vital Signs: Last Vital Signs Temp 98.7 F 12/05/23 08:00 Pulse 89 12/05/23 08:00 Resp 12 12/05/23 08:00 BP 108/58 L 12/05/23 08:00 Pulse Ox 94 12/05/23 08:00 O2 Del Method Room Air 12/05/23 08:00 BMI result Body Mass Index 39.1 General: AO X 3, no acute distress Resp: CTA bilateral, no accessory muscles used CVS: S1,S2,RRR GI: soft, tender, non distended Neuro: motor grossly intact, alert Psych: appropriate affect, appropriate insight Objective Data Active Medications Acetaminophen (Acetaminophen 325 Mg Tablet) 650 mg PO Q6H PRN PRN Reason: Pain, Mild (Pain Scale 1-3) Last Admin: 12/04/23 04:11 Dose: 650 mg Documented By: VIOLETTA Albuterol Sulfate (Albuterol Sulfate 90 Mcg 8 Gm Inhaler) 2 puff INHALE Q4H PRN PRN Reason: Dyspnea Amlodipine Besylate (Amlodipine Besylate 10 Mg Tablet) 10 mg PO DAILY [facility]; Protocol Last Admin: 12/04/23 09:24 Dose: 10 mg Documented By: PEARL Atorvastatin Calcium (Atorvastatin Calcium 80 Mg Tablet) 80 mg PO BEDTIME [facility] Last Admin: 12/04/23 19:34 Dose: 80 mg Documented By: WARNER Benzonatate (Benzonatate 100 Mg Capsule) 100 mg PO TID PRN PRN Reason: Cough Cyanocobalamin (Cyanocobalamin (Vitamin B-12) 1,000 Mcg Tablet) 1,000 mcg PO DAILY [facility] Last Admin: 12/04/23 09:24 Dose: 1,000 mcg Documented By: PEARL Cyclobenzaprine HCl (Cyclobenzaprine Hcl 10 Mg Tablet) 10 mg PO Q8H PRN PRN Reason: Muscle spasms Last Admin: 12/05/23 05:04 Dose: 10 mg Documented By: WARNER Docusate Sodium (Docusate Sodium 100 Mg Capsule) 100 mg PO DAILY PRN PRN Reason: Constipation Enoxaparin Sodium (Enoxaparin Sodium 40 Mg/0.4 Ml Syringe) 40 mg SUBCUT Q24H [facility] Last Admin: 12/04/23 22:30 Dose: 40 mg Documented By: WARNER Fluticasone Propionate (Fluticasone Propionate 100 Mcg Blst.W.Dev) 1 puff INHALE BID PRN PRN Reason: cough/wheezing Hydromorphone HCl (Hydromorphone Hcl 1 Mg/Ml Syringe) 1.5 mg IVPUSH Q3H PRN; Protocol PRN Reason: Pain, Severe (Pain Scale 7-10) Hydroxyzine HCl (Hydroxyzine Hcl 25 Mg Tablet) 25 mg PO Q8H PRN PRN Reason: anxiety Last Admin: 12/04/23 23:40 Dose: 25 mg Documented By: WARNER Lactated Ringer's (Lr) 1,000 mls @ 150 mls/hr IVCONT .Q6H40M [facility] Last Admin: 12/05/23 06:46 Dose: 150 mls/hr Documented By: WARNER Lisinopril (Lisinopril 10 Mg Tablet) 10 mg PO DAILY [facility]; Protocol Last Admin: 12/04/23 09:24 Dose: 10 mg Documented By: PEARL Melatonin (Melatonin 3 Mg Tablet) 6 mg PO BEDTIME PRN PRN Reason: Insomnia Last Admin: 12/02/23 00:24 Dose: 6 mg Documented By: PINA Ondansetron HCl (Ondansetron Hcl 4 Mg/2 Ml Vial) 4 mg IVPUSH Q8H PRN PRN Reason: Nausea and Vomiting Last Admin: 12/04/23 04:11 Dose: 4 mg Documented By: VIOLETTA Sodium Chloride (0.9 % Sodium Chloride Flush 3 Ml Syringe) 3 ml IVFLUSH QSHIFT [facility] Last Admin: 12/05/23 09:10 Dose: Not Given Documented By: TIFFANY Non-Admin Reason: IV Running Labs 12/04/23 04:10 12/04/23 04:10 Assessment and Plan (1) Acute alcoholic pancreatitis: Status: Acute Assessment and Plan: 48M PMH etoh dependence, recurrent pancreatitis, htn, obesity, hld, presented with abdominal pain Acute alcoholic pancreatitis IV fluids, IV pain meds, continue clears for now, advanced diet as tolerated HTN started amlodipine/lisinopril. HLD Continue statin Alcohol dependence Monitor for withdrawal Obesity Weight loss recommended Full Code DVT Prophylaxis: Lovenox reason for continued hospitalization: Not tolerating p.o. Quality Stroke Does the patient have a stroke diagnosis?: No VTE Prior VTE?: No VTE Risk Level:: Medical - moderate - high VTE Device Contraindication: Treatment Not Indicated VTE Drug Contraindication: N/A - Med Ordered
[2023-12-05 10:14] VITALS: BP 122/59; PULSE 91; RESP 18; O2SAT 94
[2023-12-05] MEDS: HYDROmorphone HCl 1 MG/ML SYRINGE 1.5 MG IVPUSH ×4 (10:16→20:04)
[2023-12-05 10:18] VITALS: BP 122/59
[2023-12-05] MEDS: amLODIPine Besylate 10 MG TABLET PO (10:18)
[2023-12-05] MEDS: Cyanocobalamin (Vitamin B-12) 1,000 MCG TABLET 1000 MCG PO (10:18)
[2023-12-05] MEDS: lisinopriL 10 MG TABLET PO (10:18)
[2023-12-05] MEDS: ondansetron HCL 4 MG/2 ML VIAL IVPUSH (10:36)
[2023-12-05 15:19] VITALS: BP 112/68; PULSE 83; RESP 18; TEMP 36.7; O2SAT 96
[2023-12-05 19:27] VITALS: BP 121/70; PULSE 90; RESP 18; TEMP 37.1; O2SAT 95
[2023-12-05] MEDS: Enoxaparin Sodium 40 MG/0.4 ML SYRINGE SUBCUT (20:03)
[2023-12-05] MEDS: Atorvastatin Calcium 80 MG TABLET PO (20:03)
[2023-12-06] VITALS (10 sets, daily range): BP systolic 118–128; BP diastolic 68–76; PULSE 84–108; RESP 16–20; TEMP 36.8–36.9; O2SAT 94–96
[2023-12-06] MEDS: HYDROmorphone HCl 1 MG/ML SYRINGE 1.5 MG IVPUSH ×8 (00:06→23:12)
[2023-12-06] MEDS: Lactated Ringers 1,000 ML 150 ML IVCONT ×2 (01:31→10:25)
--- NOTE | 2023-12-06 09:14 | P.PNIM_ITS ---
Subjective Subjective Date of Service: 12/06/23 Interval History: hungry Physical Exam 2 Vital Signs: Vital Signs: Last Vital Signs Temp 98.4 F 12/06/23 07:34 Pulse 97 12/06/23 07:34 Resp 20 12/06/23 07:34 BP 128/76 12/06/23 07:34 Pulse Ox 95 12/06/23 07:34 O2 Del Method Room Air 12/06/23 07:34 BMI result Body Mass Index 39.1 General: AO X 3, no acute distress Resp: CTA bilateral, no accessory muscles used CVS: S1,S2,RRR GI: soft, tender, non distended Neuro: motor grossly intact, alert Psych: appropriate affect, appropriate insight Objective Data Active Medications Acetaminophen (Acetaminophen 325 Mg Tablet) 650 mg PO Q6H PRN PRN Reason: Pain, Mild (Pain Scale 1-3) Last Admin: 12/04/23 04:11 Dose: 650 mg Documented By: VIOLETTA Albuterol Sulfate (Albuterol Sulfate 90 Mcg 8 Gm Inhaler) 2 puff INHALE Q4H PRN PRN Reason: Dyspnea Amlodipine Besylate (Amlodipine Besylate 10 Mg Tablet) 10 mg PO DAILY [facility]; Protocol Last Admin: 12/05/23 10:18 Dose: 10 mg Documented By: TIFFANY Atorvastatin Calcium (Atorvastatin Calcium 80 Mg Tablet) 80 mg PO BEDTIME [facility] Last Admin: 12/05/23 20:03 Dose: 80 mg Documented By: VENLA Benzonatate (Benzonatate 100 Mg Capsule) 100 mg PO TID PRN PRN Reason: Cough Cyanocobalamin (Cyanocobalamin (Vitamin B-12) 1,000 Mcg Tablet) 1,000 mcg PO DAILY [facility] Last Admin: 12/05/23 10:18 Dose: 1,000 mcg Documented By: TIFFANY Cyclobenzaprine HCl (Cyclobenzaprine Hcl 10 Mg Tablet) 10 mg PO Q8H PRN PRN Reason: Muscle spasms Last Admin: 12/05/23 05:04 Dose: 10 mg Documented By: WARNER Docusate Sodium (Docusate Sodium 100 Mg Capsule) 100 mg PO DAILY PRN PRN Reason: Constipation Enoxaparin Sodium (Enoxaparin Sodium 40 Mg/0.4 Ml Syringe) 40 mg SUBCUT Q24H [facility] Last Admin: 12/05/23 20:03 Dose: 40 mg Documented By: PEARL Fluticasone Propionate (Fluticasone Propionate 100 Mcg Blst.W.Dev) 1 puff INHALE BID PRN PRN Reason: cough/wheezing Hydromorphone HCl (Hydromorphone Hcl 1 Mg/Ml Syringe) 1.5 mg IVPUSH Q3H PRN; Protocol PRN Reason: Pain, Severe (Pain Scale 7-10) Last Admin: 12/06/23 06:20 Dose: 1.5 mg Documented By: OLU Hydroxyzine HCl (Hydroxyzine Hcl 25 Mg Tablet) 25 mg PO Q8H PRN PRN Reason: anxiety Last Admin: 12/04/23 23:40 Dose: 25 mg Documented By: WARNER Lactated Ringer's (Lr) 1,000 mls @ 150 mls/hr IVCONT .Q6H40M [facility] Last Admin: 12/06/23 06:25 Dose: Not Given Documented By: OLU Non-Admin Reason: IV Running Lisinopril (Lisinopril 10 Mg Tablet) 10 mg PO DAILY [facility]; Protocol Last Admin: 12/05/23 10:18 Dose: 10 mg Documented By: TIFFANY Melatonin (Melatonin 3 Mg Tablet) 6 mg PO BEDTIME PRN PRN Reason: Insomnia Last Admin: 12/02/23 00:24 Dose: 6 mg Documented By: PINA Ondansetron HCl (Ondansetron Hcl 4 Mg/2 Ml Vial) 4 mg IVPUSH Q8H PRN PRN Reason: Nausea and Vomiting Last Admin: 12/05/23 10:36 Dose: 4 mg Documented By: TIFFANY Sodium Chloride (0.9 % Sodium Chloride Flush 3 Ml Syringe) 3 ml IVFLUSH QSHIFT [facility] Last Admin: 12/06/23 00:54 Dose: Not Given Documented By: OLU Non-Nick Reason: IV Running Labs 12/04/23 04:10 12/04/23 04:10 Assessment and Plan (1) Acute alcoholic pancreatitis: Status: Acute Assessment and Plan: 48M PMH etoh dependence, recurrent pancreatitis, htn, obesity, hld, presented with abdominal pain Acute alcoholic pancreatitis advancing to solids HTN started amlodipine/lisinopril. HLD Continue statin Alcohol dependence Monitor for withdrawal Obesity Weight loss recommended Full Code DVT Prophylaxis: Lovenox reason for continued hospitalization: awaiting po tolerance Quality Stroke Does the patient have a stroke diagnosis?: No VTE Prior VTE?: No VTE Risk Level:: Medical - moderate - high VTE Device Contraindication: Treatment Not Indicated VTE Drug Contraindication: N/A - Med Ordered
--- NOTE | 2023-12-06 09:23 | P.DS_ITS ---
DS: Providers Provider Date of Service: 12/07/23 Date of admission: 12/01/23 22:08 Primary care physician: Kervin Foss III, MD Consults: 12/01/23 22:24 Addiction Medicine Routine Consulting Provider: Addiction Covering Reason for consultation: Alcohol dependence DS: Diagnosis Discharge Diagnosis (1) Acute alcoholic pancreatitis: Status: Acute DS: Summary Hospital Course Hospital Course: from initial hpi: 48-year-old male with a PMH significant for?alcoholic pancreatitis with last significant flare-up in 2021, HTN, and HLD who presents to the ED with?severe LUQ abdominal pain wrapping around to the back since this morning. Patient reports originally felt some abdominal discomfort last evening, though was resolved by the time he woke up the next morning. This morning patient awoke with severe abdominal pain with nausea and vomiting all day. Patient has a history of previous pancreatitis, though reports this pain was much more severe than previous episodes. Was last admitted to the hospital in 2021 for acute alcoholic pancreatitis which required a prolonged 11-day hospital stay. 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 States last drank two 7-ounce beers last night. Denies chest pain/pressure, palpitations. No fever, chills. Denies shortness of breath. No lightheadedness or dizziness. No change to bowel bladder habits. In the ED pt was tachypneic up to 22, tachycardic up to 95, and hypertensive up to 185/120. Labs were significant for leukocytosis of 13.4, bilirubin 1.3, and lipase 340. H&H stable. No significant electrolyte abnormalities. UA negative for UTI. CT?of abdomen and pelvis found diffusely edematous pancreas with surrounding stranding involving body and tail without organized fluid collection, suggestive of acute pancreatitis. EKG demonstrated normal sinus rhythm without significant evidence ST elevations or depressions. Pt was treated with IVF, ondansetron, famotidine, morphine, and ketorolac. Pt will be admitted to the hospital for treatment and further evaluation of acute pancreatitis. hospital course: Patient was admitted for acute alcoholic hepatitis. He was given pain meds, IV fluids, diet was slowly advanced the point where he is tolerating solids now. Recommend continue on low-fat diet until pain totally resolved. For hypertension was started on amlodipine and lisinopril. For hyperlipidemia was continue statin. For alcohol dependence he did not have any withdrawal and is recommended to avoid. For obesity weight loss recommended. Patient is feeling better will be discharged home. Time Attestation Discharge Coordination Time (in mins): 33 Quality: Safe Use of Opioids Does Pt have an Active Cancer Diagnosis on the Problem List?: No Quality: Stroke Does the patient have a stroke diagnosis?: No Physical Exam Vital Signs: Vital Signs: Last Vital Signs Temp 98.4 F 12/06/23 07:34 Pulse 97 12/06/23 07:34 Resp 20 12/06/23 07:34 BP 128/76 12/06/23 07:34 Pulse Ox 95 12/06/23 07:34 O2 Del Method Room Air 12/06/23 07:34 BMI result Body Mass Index 39.1 General: AO X 3, no acute distress Resp: CTA bilateral, no accessory muscles used CVS: S1,S2,RRR GI: soft, non tender, non distended Neuro: motor grossly intact, alert Psych: appropriate affect, appropriate insight Discharge Plan Discharge Anticipated Discharge Date/Time: 12/06/23 09:15 Patient Disposition: Home, Self-Care Discharge Diagnosis: etoh pancreatitis Referrals: Kervin Foss III, MD [Primary Care Provider] - 1 Week Discharge Medications: New oxycodone 5 mg tablet 5 mg PO Q6H PRN (Reason: moderate pain (scale score 5-6)) Qty: 14 0RF Rx Instructions: Partial Fill upon patient request. Continued amlodipine 10 mg tablet 1 tab PO DAILY omeprazole 20 mg capsule,delayed release(DR/EC) 1 cap PO DAILY albuterol sulfate 90 mcg/actuation HFA aerosol inhaler 2 puff PO Q4H PRN (Reason: Dyspnea) hydroxyzine HCl 25 mg tablet 1 tab PO Q8H PRN (Reason: anxiety) atorvastatin 80 mg Tablet 80 mg PO BEDTIME cyanocobalamin (vitamin B-12) 1,000 mcg Tablet 1,000 mcg PO DAILY cyclobenzaprine 10 mg tablet 10 mg PO Q8H PRN (Reason: Muscle spasms) fluticasone propionate 110 mcg/actuation Hfa Aerosol Inhaler 1 puff INHALATION BID PRN (Reason: cough/wheezing) lisinopril 10 mg tablet 10 mg PO DAILY Discharge Orders: Discharge Order (Routine); Ordered 12/07/23 Ordered By: Augustine Tinajero Diet: Low fat, low cholesterol Activity on Discharge: As tolerated Stand Alone Forms: Patient Portal Discharge page Print Language: Ug[place]an Care Plan Goals: avoid pancreatitis Health Concerns: pancreatitis, etoh use Plan of Treatment: avoid etoh avoid high fat foods for now Assessment: see above
[2023-12-06] MEDS: amLODIPine Besylate 10 MG TABLET PO (09:40)
[2023-12-06] MEDS: 0.9 % Sodium Chloride Flush 3 ML SYRINGE IVFLUSH ×2 (09:40→16:54)
[2023-12-06] MEDS: Cyanocobalamin (Vitamin B-12) 1,000 MCG TABLET 1000 MCG PO (09:40)
[2023-12-06] MEDS: lisinopriL 10 MG TABLET PO (09:40)
[2023-12-06] MEDS: Lactulose 20 GM/30 ML SOLUTION PO (14:23)
--- NOTE | 2023-12-06 15:19 | MHC.CM.PN ---
EMR REVIEWED AND PER MD ROUNDS, PT MAY DC LATER IN DAY IF ABLE TO TOLERATE FULL DIET. CM WILL CONTINUE TO FOLLOW FOR ANY CHANGES IN DC PLAN.
[2023-12-06] MEDS: polyethylene glycoL 3350 17 GM POWD.PACK PO (17:10)
[2023-12-06] MEDS: Enoxaparin Sodium 40 MG/0.4 ML SYRINGE SUBCUT (20:14)
[2023-12-06] MEDS: Atorvastatin Calcium 80 MG TABLET PO (20:14)
[2023-12-07] MEDS: 0.9 % Sodium Chloride Flush 3 ML SYRINGE IVFLUSH (01:26)
[2023-12-07] MEDS: HYDROmorphone HCl 1 MG/ML SYRINGE 1.5 MG IVPUSH ×2 (02:32→05:45)
[2023-12-07 03:38] VITALS: BP 122/78; PULSE 101; RESP 18; TEMP 36.2; O2SAT 96
[2023-12-07 08:00] VITALS: BP 122/70; PULSE 85; RESP 12; TEMP 36.3; O2SAT 98
--- NOTE | 2023-12-07 08:26 | MHC.CM.PN ---
PT WILL DC HOME TODAY WITH NO SERVICES VIA PRIVATE TRANSPORT
[2023-12-07 08:33] VITALS: BP 122/70
[2023-12-07] MEDS: lisinopriL 10 MG TABLET PO (08:33)
[2023-12-07 08:34] VITALS: BP 122/70
[2023-12-07] MEDS: amLODIPine Besylate 10 MG TABLET PO (08:34)
[2023-12-07] MEDS: Cyanocobalamin (Vitamin B-12) 1,000 MCG TABLET 1000 MCG PO (08:34)
== END 2023-12-07 09:43 | disposition home or self-care (01) | DRG 282 ==
LOC: HO.ED 20:30 → HO.EDOVER 22:52 → HO.S3 12-04 07:17
PROVIDERS: Nurse Practitioner Family; Admitting Provider Student in an Organized Health Care Education/Training Program; Emergency Provider Internal Medicine; PCP Internal Medicine; Visit Provider Internal Medicine
DX: K85.20 Alcohol induced acute pancreatitis without necrosis or infection (principal); E66.9 Obesity, unspecified; E78.5 Hyperlipidemia, unspecified; I10 Essential (primary) hypertension; F11.20 Opioid dependence, uncomplicated; Z71.3 Dietary counseling and surveillance; Z68.39 Body mass index [BMI] 39.0-39.9, adult; Z79.899 Other long term (current) drug therapy
CPT/HCPCS: 36415; 74177; 80048; 80053; 80076; 81001; 83690; 83735; 84484; 85025; 85027; 93005; 99285; C9113; J0737; J1170; J1650; J1885; J2270; J2405; J7120; Q9967

== ENCOUNTER → 2023-12-01 14:35 | Outpatient (BNV) | payer OTHER, SELFPAY | PROVIDERS: Admitting Provider Student in an Organized Health Care Education/Training Program; Emergency Provider Internal Medicine; PCP Internal Medicine; Visit Provider Internal Medicine Cardiovascular Disease | DX: I10 Essential (primary) hypertension (principal) | CPT/HCPCS: 93010 ==

== ENCOUNTER → 2023-12-01 15:35 | Outpatient (BNV) | payer OTHER, SELFPAY | PROVIDERS: Emergency Provider Internal Medicine; PCP Internal Medicine; Visit Provider Student in an Organized Health Care Education/Training Program | DX: K85.20 Alcohol induced acute pancreatitis without necrosis or infection (principal) | CPT/HCPCS: 99223; 99232; 99233; 99239 ==